=== PATIENT | female | born 1960 | race Caucasian/White ===

== ENCOUNTER 2016-10-31 18:43 | Observation (INO) | payer OTHER ==
[2016-10-31] MEDS ORDERED: SODIUM CHLORIDE 0.9% 1,000 ML IV STA (19:07)
--- NOTE | 2016-10-31 19:11 | ED ---
Psych HPI - General Chief Complaint: Psychiatric Symptoms Stated Complaint: mental health Time Seen by Provider: 10/31/16 18:44 Source: EMS, RN notes reviewed Mode of arrival: EMS - History of Present Illness Initial Comments: 55 yo female presents to the emergency Department chief complaint of shakiness. Patient states that she Started about 2 weeks ago. She saw her psychiatrist or and she was referred for an outpatient follow-up with neurology that is scheduled for the middle of November. Patient states he continues to have shaking in her upper extremities at bedtime she. Patient states he states he tried to wash her hair they shake all the time so she was concerned. Patient denies any fever chills with this. Patient states she has had a slight cough. Patient denies any nausea or vomiting. Patient states that she has been using all her medicines. Patient states she was concerned with the shaking and she thought that it is just Continuing she may become suicidal. That she should be evaluated. Patient states that she is not currently having any other symptoms at this time. Patient denies any recent fever, chills, shortness of breath, chest pain, back pain, abdominal pain, nausea vomiting, numbness or tingling, dysuria or hematuria, constipation or diarrhea, headaches or visual changes, or any other current symptoms. - Related Data Home Medications Medication Instructions Recorded Confirmed Levothyroxine Sodium [Synthroid] 50 mcg PO DAILY 03/10/16 10/31/16 Acetaminophen Tab [Tylenol Tab] 650 mg PO BID PRN 06/01/16 10/31/16 Loratadine 10 mg PO DAILY 10/31/16 10/31/16 Previous Rx's Medication Instructions Recorded FLUoxetine HCL [PROzac] 20 mg PO DAILY #30 cap 12/12/14 traZODone HCL [Desyrel] 100 mg PO HS #30 tab 12/12/14 Allergies Allergy/AdvReac Type Severity Reaction Status Date / Time Sulfa (Sulfonamide Allergy Unknown Rash/Hives Verified 10/31/16 19:36 Antibiotics) Review of Systems ROS Statement: Those systems with pertinent positive or pertinent negative responses have been documented in the HPI. ROS Other: All systems not noted in ROS Statement are negative. Past Medical History Past Medical History: GERD/Reflux, Hyperlipidemia, Hypertension, Thyroid Disorder Additional Past Medical History / Comment(s): Celiac disease History of Any Multi-Drug Resistant Organisms: None Reported Past Surgical History: Section, Tubal Ligation Additional Past Surgical History / Comment(s): Bilateral cataract removal and lens implant Past Anesthesia/Blood Transfusion Reactions: No Reported Reaction Past Psychological History: Anxiety, Depression, Panic Disorder, PTSD, Schizophrenia Smoking Status: Never smoker Past Alcohol Use History: None Reported Additional Past Alcohol Use History / Comment(s): Patient states she is a lifelong nonsmoker. She denies any medical marijuana, marijuana or street drug use. She denies any alcohol use or abuse. She is currently . She has 2 adult children. One son is and on his own and the second son is in his 20s and living with his grandparents. One son has hearing and vision difficulty. Past Drug Use History: None Reported - Past Family History Father Family Medical History: CVA/TIA, Diabetes Mellitus Additional Family Medical History / Comment(s): Father is alive and his 70s Mother Family Medical History: No Reported History Brother(s) Additional Family Medical History / Comment(s): She has 2 brothers. One at age 43 from [facility] and 1 is alive with no major medical problems. Patient has no sisters. General Exam - General Exam Comments Initial Comments: General: The patient is awake and alert, in no distress, and does not appear acutely ill. Eye: Pupils are equal, round and reactive to light, extra-ocular movements are intact; there is normal conjunctiva bilaterally. No signs of icterus. Ears, nose, mouth and throat: There are moist mucous membranes and no oral lesions. Neck: The neck is supple, there is no tenderness. Cardiovascular: There is a regular rate and rhythm. No murmur, rub or gallop is appreciated. Respiratory: Lungs are clear to auscultation, respirations are non-labored, breath sounds are equal. No wheezes, stridor, rales, or rhonchi. Gastrointestinal: Soft, non-distended, non-tender abdomen without masses or organomegaly noted. There is no rebound or guarding present. No CVA tenderness. Bowel sounds are unremarkable. Back: There is no tenderness to palpation in the midline. There is no obvious deformity. No rashes noted. Musculoskeletal: Normal ROM, no tenderness, There is no pedal edema. There is no calf tenderness or swelling. Sensation intact. Pulses equal bilaterally 2+. Neurological: CN II-XII intact, There are no obvious motor or sensory deficits. Coordination appears grossly intact. Speech is normal. Patient does appear to have shaking to the bilateral upper extremities. She Does not go away when patient is asked to perform tasks. Skin: Skin is warm and dry and no rashes or lesions are noted. Psychiatric: Cooperative, appropriate mood & affect, normal judgment. Course Vital Signs 10/31/16 10/31/16 18:44 21:17 Temperature 98.2 F 98.6 F Pulse Rate 94 91 Respiratory 18 16 Rate Blood Pressure 164/99 146/73 O2 Sat by Pulse 96 95 Oximetry Medical Decision Making - Medical Decision Making 55-year-old female presents to the emergency Department chief complaint of upper extremity shaking. Patient CT and laboratory is reviewed and negative. Psychiatric see the patient as well and the digit contact the family. There is concerned due to this increasing tremor. Family states they've noticed this tremors becoming worse over the last 2 weeks intense when she can't even hold something. Psych does not believe this is to the making this is due to a neurological cause. At this time it is worsening to the point of the patient, family function at times with this. At this time we'll admit the patient to observation to have a doctor she'll see the patient for her new tremor there is a long history of Parkinson dementia in the patient's family. The patient and in agreement with the plan. - Lab Data Result diagrams: 10/31/16 19:31 10/31/16 19:31 Lab Results 10/31/16 10/31/16 10/31/16 Range/Units 19:20 19:20 19:31 WBC 9.7 (3.8-10.6) k/uL RBC 4.75 (3.80-5.40) m/uL Hgb 14.0 (11.4-16.0) gm/dL Hct 43.6 (34.0-46.0) % MCV 91.9 (80.0-100.0) fL MCH 29.5 (25.0-35.0) pg MCHC 32.1 (31.0-37.0) g/dL RDW 12.6 (11.5-15.5) % Plt Count 352 (150-450) k/uL Neutrophils % 66 % Lymphocytes % 26 % Monocytes % 5 % Eosinophils % 2 % Basophils % 0 % Neutrophils # 6.4 (1.3-7.7) k/uL Lymphocytes # 2.5 (1.0-4.8) k/uL Monocytes # 0.5 (0-1.0) k/uL Eosinophils # 0.2 (0-0.7) k/uL Basophils # 0.0 (0-0.2) k/uL Sodium (137-145) mmol/L Potassium (3.5-5.1) mmol/L Chloride (98-107) mmol/L Carbon Dioxide (22-30) mmol/L Anion Gap mmol/L BUN (7-17) mg/dL Creatinine (0.52-1.04) mg/dL Est GFR (MDRD) Af Amer (>60 ml/min/1.73 sqM) Est GFR (MDRD) Non-Af (>60 ml/min/1.73 sqM) Glucose (74-99) mg/dL Calcium (8.4-10.2) mg/dL Total Bilirubin (0.2-1.3) mg/dL AST (14-36) U/L ALT (9-52) U/L Alkaline Phosphatase (38-126) U/L Total Protein (6.3-8.2) g/dL Albumin (3.5-5.0) g/dL TSH (0.465-4.680) mIU/L Urine Color Yellow Urine Appearance Turbid H (Clear) Urine pH 7.5 (5.0-8.0) Ur Specific Keenes 1.017 (1.001-1.035) Urine Protein Negative (Negative) Urine Glucose (UA) Negative (Negative) Urine Ketones Negative (Negative) Urine Blood Negative (Negative) Urine Nitrate Negative (Negative) Urine Bilirubin Negative (Negative) Urine Urobilinogen <2.0 (<2.0) mg/dL Ur Leukocyte Esterase Negative (Negative) Urine RBC 6 H (0-5) /hpf Ur Squamous Epith Cells 2 (0-4) /hpf Amorphous Sediment Rare H (None) /hpf Urine Mucus Rare H (None) /hpf Urine Opiates Screen Not Detected (NotDetected) Ur Oxycodone Screen Not Detected (NotDetected) Urine Methadone Screen Not Detected (NotDetected) Ur Propoxyphene Screen Not Detected (NotDetected) Ur Barbiturates Screen Not Detected (NotDetected) U Tricyclic Antidepress Not Detected (NotDetected) Ur Phencyclidine Scrn Not Detected (NotDetected) Ur Amphetamines Screen Not Detected (NotDetected) U Methamphetamines Scrn Not Detected (NotDetected) U Benzodiazepines Scrn Detected H (NotDetected) Urine Cocaine Screen Not Detected (NotDetected) U Marijuana (THC) Screen Not Detected (NotDetected) 10/31/16 Range/Units 19:31 WBC (3.8-10.6) k/uL RBC (3.80-5.40) m/uL Hgb (11.4-16.0) gm/dL Hct (34.0-46.0) % MCV (80.0-100.0) fL MCH (25.0-35.0) pg MCHC (31.0-37.0) g/dL RDW (11.5-15.5) % Plt Count (150-450) k/uL Neutrophils % % Lymphocytes % % Monocytes % % Eosinophils % % Basophils % % Neutrophils # (1.3-7.7) k/uL Lymphocytes # (1.0-4.8) k/uL Monocytes # (0-1.0) k/uL Eosinophils # (0-0.7) k/uL Basophils # (0-0.2) k/uL Sodium 142 (137-145) mmol/L Potassium 4.5 (3.5-5.1) mmol/L Chloride 99 (98-107) mmol/L Carbon Dioxide 30 (22-30) mmol/L Anion Gap 13 mmol/L BUN 20 H (7-17) mg/dL Creatinine 0.63 (0.52-1.04) mg/dL Est GFR (MDRD) Af Amer >60 (>60 ml/min/1.73 sqM) Est GFR (MDRD) Non-Af >60 (>60 ml/min/1.73 sqM) Glucose 96 (74-99) mg/dL Calcium 9.8 (8.4-10.2) mg/dL Total Bilirubin 0.6 (0.2-1.3) mg/dL AST 20 (14-36) U/L ALT 34 (9-52) U/L Alkaline Phosphatase 95 (38-126) U/L Total Protein 8.1 (6.3-8.2) g/dL Albumin 4.8 (3.5-5.0) g/dL TSH 3.360 (0.465-4.680) mIU/L Urine Color Urine Appearance (Clear) Urine pH (5.0-8.0) Ur Specific Keenes (1.001-1.035) Urine Protein (Negative) Urine Glucose (UA) (Negative) Urine Ketones (Negative) Urine Blood (Negative) Urine Nitrate (Negative) Urine Bilirubin (Negative) Urine Urobilinogen (<2.0) mg/dL Ur Leukocyte Esterase (Negative) Urine RBC (0-5) /hpf Ur Squamous Epith Cells (0-4) /hpf Amorphous Sediment (None) /hpf Urine Mucus (None) /hpf Urine Opiates Screen (NotDetected) Ur Oxycodone Screen (NotDetected) Urine Methadone Screen (NotDetected) Ur Propoxyphene Screen (NotDetected) Ur Barbiturates Screen (NotDetected) U Tricyclic Antidepress (NotDetected) Ur Phencyclidine Scrn (NotDetected) Ur Amphetamines Screen (NotDetected) U Methamphetamines Scrn (NotDetected) U Benzodiazepines Scrn (NotDetected) Urine Cocaine Screen (NotDetected) U Marijuana (THC) Screen (NotDetected) Disposition Clinical Impression: Tremor of both hands Disposition: ADMITTED IP TO THIS [facility] Referrals: Cindy Gardner MD [Primary Care Provider] - 1-2 days Time of Disposition: 21:55 Decision Date: 10/31/16 Decision Time: 22:08
[2016-10-31 19:39] LABS: Basophils % (A) 0 %; CH 30.1; CHCM 32.9; Eosinophils # (A) 0.2 k/uL (0-0.7); Eosinophils % (A) 2 %; HCT 43.6 % (34.0-46.0); Luc # (Auto) 0.15; Luc % (Auto) 2; Lymphocytes # (A) 2.5 k/uL (1.0-4.8); Lymphocytes % (A) 26 %; MCH 29.5 pg (25.0-35.0); MCHC 32.1 g/dL (31.0-37.0); MCV 91.9 fL (80.0-100.0); Mean Platelet Volume 6.8; Monocytes # (A) 0.5 k/uL (0-1.0); Monocytes % (A) 5 %; Neutrophils # (A) 6.4 k/uL (1.3-7.7); Neutrophils % (A) 66 %; RBC 4.75 m/uL (3.80-5.40); RDW 12.6 % (11.5-15.5); WBC 9.7 k/uL (3.8-10.6); WBC (Perox) 10.07
[2016-10-31 19:50] LABS: ALT 34 U/L (9-52); AST 20 U/L (14-36); Alkaline Phosphatase 95 U/L (38-126); Anion Gap 13 mmol/L; Blood Urea Nitrogen 20 mg/dL (7-17); Calcium 9.8 mg/dL (8.4-10.2); Carbon Dioxide 30 mmol/L (22-30); Chloride 99 mmol/L (98-107); Glucose 96 mg/dL (74-99); Non-African American GFR(MDRD) >60 (>60 ml/min/1.73 sqM); Potassium 4.5 mmol/L (3.5-5.1); Sodium 142 mmol/L (137-145); Total Bilirubin 0.6 mg/dL (0.2-1.3); Total Protein 8.1 g/dL (6.3-8.2)
--- NOTE | 2016-10-31 20:32 | CT ---
EXAMINATION TYPE: CT brain wo con DATE OF EXAM: 10/31/2016 8:19 PM COMPARISON: 08/20/2016 HISTORY: Confusion and frontal headache. CT DLP: 1590.40 mGycm Automated exposure control for dose reduction was used. FINDINGS: There is mild cerebral atrophy. There is no mass effect or midline shift. There is no sign of intracr anial hemorrhage. There is some hypodensity around the frontal horns of the lateral ventricles. IMPRESSION: Cerebral atrophy with probably some chronic small vessel ischemia. No acute intracranial abnormality. No change compared to old exam.
[2016-10-31 20:52] LABS: Amorphous Sediment,Urine Rare /hpf; Appearance,Urine Turbid (Clear); Bilirubin,Urine Negative (Negative); Glucose,Urine (UA) Negative (Negative); Ketones,Urine Negative (Negative); Leukocyte Esterase,Urine Negative (Negative); Mucus,Urine Rare /hpf; Nitrite,Urine Negative (Negative); PH, Urine 7.5 (5.0-8.0); Particle Count 10179; Protein,Urine Negative (Negative); RBC,Urine 6 /hpf (0-5); Specific Gravity,Urine 1.017 (1.001-1.035); Squamous Epithelial Cell,Urine 2 /hpf (0-4); UA Billing (MACRO vs. MICRO) MICRO; Urobilinogen,Urine <2.0 mg/dL (<2.0)
[2016-10-31] MEDS ORDERED: NALOXONE 0.4 MG/ML 1 ML VIAL IV PRN (22:08)
[2016-10-31] MEDS ORDERED: ACETAMINOPHEN TAB 325 MG TAB PO PRN (22:10)
[2016-10-31 23:20] VITALS: BMI 30.1
[2016-10-31 23:31] VITALS: RESP 16
[2016-11-01] MEDS: SODIUM CHLORIDE 0.9% 1,000 ML IV SCH ×2 (00:58→20:15)
[2016-11-01] MEDS: LORazepam 2 MG/ML SYRINGE IV PRN ×2 (00:58→22:27)
[2016-11-01] MEDS: LEVOTHYROXINE 50 MCG TAB PO SCH (05:26)
[2016-11-01] MEDS: FLUoxetine HCL 20 MG CAP PO SCH (07:07)
[2016-11-01] MEDS: LORATADINE 10 MG TAB PO SCH (07:08)
[2016-11-01 07:55] LABS: Basophils % (A) 0 %; CH 29.9; CHCM 32.2; Eosinophils # (A) 0.1 k/uL (0-0.7); Eosinophils % (A) 1 %; HCT 40.2 % (34.0-46.0); HDW 2.14; HGB 12.9 gm/dL (11.4-16.0); Luc # (Auto) 0.08; Luc % (Auto) 1; Lymphocytes # (A) 2.3 k/uL (1.0-4.8); Lymphocytes % (A) 32 %; MCH 29.9 pg (25.0-35.0); MCHC 32.1 g/dL (31.0-37.0); MCV 93.3 fL (80.0-100.0); Monocytes # (A) 0.3 k/uL (0-1.0); Monocytes % (A) 4 %; Neutrophils # (A) 4.4 k/uL (1.3-7.7); Neutrophils % (A) 61 %; RBC 4.31 m/uL (3.80-5.40); RDW 12.6 % (11.5-15.5); WBC 7.2 k/uL (3.8-10.6); WBC (Perox) 7.52
[2016-11-01 08:04] LABS: ALT 36 U/L (9-52); AST 19 U/L (14-36); Alkaline Phosphatase 86 U/L (38-126); Anion Gap 10 mmol/L; Blood Urea Nitrogen 12 mg/dL (7-17); Carbon Dioxide 28 mmol/L (22-30); Chloride 102 mmol/L (98-107); Glucose 105 mg/dL (74-99); Non-African American GFR(MDRD) >60 (>60 ml/min/1.73 sqM); Potassium 3.8 mmol/L (3.5-5.1); Sodium 140 mmol/L (137-145); Total Bilirubin 0.6 mg/dL (0.2-1.3)
--- NOTE | 2016-11-01 19:13 | HP ---
DATE OF ADMISSION: 10/31/2016 DATE OF SERVICE: 11/01/2016 CHIEF COMPLAINTS: Tremors and gait dysfunction. HISTORY OF PRESENT ILLNESS: This 55-year-old woman with a past medical history of multiple medical problems including GERD, hypertension, hyperlipidemia, hypothyroidism, celiac disease, history of tubal ligation, , anxiety, depression, panic disorder, PTSD, schizophrenia, being followed by Dr. Cindy Gardner in the outpatient setting was admitted with complaints of tremors. Patient had difficulty in walking. The patient also has shaking, which is uncontrolled. Patient does not have any fever, rigors, chills. Patient had no nausea, headache, loss of consciousness or seizures. Patient came to [facility] and admitted for evaluation and treatment. There is no hematochezia or melena. PAST MEDICAL HISTORY: History of gastroesophageal reflux disease, hypertension, hyperlipidemia, hypothyroidism, history of anxiety and depression, panic disorder, PTSD, schizophrenia. Medications prior to admission include the home medications include: 1. Desyrel 100 mg q.h.s. 2. Loratadine 10 mg p.o. daily. 3. Synthroid 50 mcg daily. 4. Prozac 20 mg p.o. b.i.d. 5. Tylenol 650 b.i.d. ALLERGIES: SULFA. FAMILY HISTORY: History of CVA, TIA, diabetes mellitus, Parkinson's in the brother. SOCIAL HISTORY: No history of smoking. No history of alcohol intake. REVIEW OF SYSTEMS: ENT: No diminished hearing or diminished vision. CARDIOVASCULAR: No angina. RESPIRATORY: No cough or hemoptysis. GI: No nausea. : No dysuria. NERVOUS SYSTEM: As mentioned earlier. ALLERGY/IMMUNOLOGY: No asthma or hayfever. MUSCULOSKELETAL: As mentioned earlier. HEMATOLOGY: No history of anemia. ENDOCRINE: No history of diabetes. Hypothyroidism. CONSTITUTIONAL: As mentioned earlier. DERMATOLOGY: Negative. RHEUMATOLOGY: Negative. PSYCHIATRY: As mentioned earlier. PHYSICAL EXAMINATION: Patient is alert and oriented x3. Pulse is 93, blood pressure 140/77, respirations 16, temperature 96.7, pulse ox 90% on room air. HEENT: Conjunctivae normal. NECK: No jugular venous distention. CARDIOVASCULAR: S1 and S2, muffled. RESPIRATORY: Breath sounds diminished at the bases. Bilateral scattered rhonchi and crackles. ABDOMEN: Soft, nontender. LEGS: No edema, no swelling. NERVOUS SYSTEM: Higher function as mentioned. Cranial nerves II through XII grossly intact. tone is increased. Diffuse tremors. Power is also diminished bilaterally. LYMPHATIC: No lymphadenopathy in the neck, axillae or groin. SKIN: No ulcer, rash or bleeding. LABS: CBC and CMP within normal limits. UA noted. Drug screen is positive for benzodiazepines. ASSESSMENT: 1. Diffuse tremors and weakness, possible acute Parkinsonian, acute exacerbation. 2. Gait dysfunction. 3. History of gastroesophageal reflux disease. 4. Hypertension. 5. Hyperlipidemia. 6. Hypothyroidism. 7. History of celiac disease. 8. History of tubal ligation. 9. Bilateral cataract removal. 10. Anxiety, depression, panic disorder, posttraumatic stress disorder, schizophrenia. 11. FULL CODE. RECOMMENDATIONS AND DISCUSSION: In this 55-year-old woman who presented with multiple complex medical issues. We will monitor the patient closely. Continue the current medications. I would recommend Neurology consultation. PT, OT evaluation. Otherwise, resume the home medications. DVT prophylaxis. See orders. Medication reconciliation done. I would also recommend psychiatry consultation. Further recommendations to follow. A copy of dictation forwarded to Dr. Cindy Gardner who is the primary physician.
[2016-11-01] MEDS: HEPARIN SODIUM,PORCINE 5,000 UNIT/ML 1 ML VIAL SQ SCH (20:24)
[2016-11-01] MEDS: traZODone HCL 100 MG TAB PO SCH (20:25)
[2016-11-02] MEDS: SODIUM CHLORIDE 0.9% 1,000 ML IV SCH ×2 (00:24→12:33)
[2016-11-02] MEDS: LEVOTHYROXINE 50 MCG TAB PO SCH (06:00)
[2016-11-02] MEDS: LORATADINE 10 MG TAB PO SCH (08:35)
[2016-11-02] MEDS: FLUoxetine HCL 20 MG CAP PO SCH (08:35)
[2016-11-02] MEDS: HEPARIN SODIUM,PORCINE 5,000 UNIT/ML 1 ML VIAL SQ SCH ×2 (08:36→21:38)
--- NOTE | 2016-11-02 09:49 | CONS ---
DATE OF CONSULTATION: 11/01/2016 CHIEF COMPLAINT: Tremors and gait instability. HISTORY OF PRESENT ILLNESS: Mrs. Carver is a pleasant 55-year-old female who is being evaluated today on 11/01/2016 by the neurology service per the request of Dr. Garcia for the above-mentioned complaints. The patient was brought into [facility] emergency room with complaints of generalized tremors. She states that the symptoms started approximately 2 weeks ago and they have been getting worse. The patient was unable to control her extremities due to tremors and this is the main reason she was brought into the emergency room. She also noticed that she was not walking steadily. She denies any head injuries and denies any lateralizing weakness or numbness. She does have a history of depression and hypothyroidism. The patient is concerned because she has a family history of Parkinson's disease. Her brother was diagnosed with Parkinson's disease when he was in his 40s. A CT scan of the brain was done, which showed generalized atrophy and small vessel ischemic changes. Her CBC, comprehensive metabolic profile, and urinalysis were normal. Her urine drug screen was positive for benzodiazepine. At the time of my evaluation, the patient is resting in her bed and appears to be in no acute distress. She is still having tremors, but the intensity has significantly improved. PAST MEDICAL HISTORY: Hypertension, hypothyroidism, gastroesophageal reflux disease, dyslipidemia, celiac disease, history of tubal ligation and . She also has history of cataract surgeries. The patient does have multiple psychiatric history including depression, anxiety disorder, panic disorder, posttraumatic stress disorder, and schizophrenia. SOCIAL HISTORY: She denies any tobacco, alcohol or IV drug use. FAMILY HISTORY: Positive for Parkinson's disease, strokes, diabetes. HOME MEDICATIONS: Reviewed in the chart ALLERGIES: SULFA DRUGS. REVIEW OF SYSTEMS: Per history of present illness and otherwise negative. PHYSICAL EXAM: Vital signs show a temperature of 96.7, pulse 93, respirations 16, blood pressure 146/77. GENERAL APPEARANCE: The patient is a well-developed, well-nourished female who appears to be in no acute distress. HEENT: Normocephalic, atraumatic, no facial asymmetry is seen. Neck is supple with no masses felt. CARDIOVASCULAR: Regular rate and rhythm. ABDOMEN: Nontender, nondistended. EXTREMITIES: No edema or clubbing. NEUROLOGICAL EXAM: The patient is alert, aware, and oriented x3. Speech and language are normal. Resting tremors are seen in all 4 extremities but more significant in the right upper extremity. Postural tremors are also seen. Cogwheel rigidity is present in bilateral upper extremities. No lateralizing weakness is seen. Sensory exam was normal to light touch in all 4 extremities. No facial asymmetry is noticed on cranial nerve testing. IMPRESSION: 1. Uncontrolled tremors. 2. Gait instability. 3. Parkinsonism. RECOMMENDATIONS: The patient's physical examination is consistent with parkinsonism, but she also has some postural tremors as well. Given the findings, and given the family history of parkinsonism, I will start her on Requip 0.5 mg at bedtime. This dose will slowly be titrated up to 3 times daily in the outpatient setting. The patient will also be scheduled for a SPECT scan to check for evidence of Parkinson's disease and this will also be scheduled in the outpatient setting. She will follow up in the clinic within one week of discharge. Continue physical therapy for now. I will continue to follow with you. Further recommendations to follow. Thank you for allowing me to participate in the care of your patient. If you have any questions, please feel free to contact me. CHATA
[2016-11-02] MEDS: FOLIC ACID 1 MG TAB PO SCH (11:48)
[2016-11-02] MEDS: THIAMINE 100 MG TAB PO SCH (11:48)
[2016-11-02] MEDS: MULTIVITAMINS, THERA 1 EACH TAB PO SCH (11:48)
--- NOTE | 2016-11-02 19:21 | P.PN ---
Subjective This is a 55-year-old female that is admitted to the hospital with complaints of tremors and gait dysfunction. Patient probably has been having similar complaints over the last few weeks. Patient has had a fall or 6 weeks ago. Patient does have a history of schizophrenia. Patient was initially evaluated and initial differential diagnosis was early parkinsonism. No change in medications were recently reported. Patient apparently lives by herself has some help with [facility] in regards to patient being evaluated regularly. Currently states that her tremors are slightly better after being started on ropinirole. Denies having any chest pain, nausea, dizziness, vomiting or diarrhea. Objective - Vital Signs Vital signs: Vital Signs Temp 98.4 F 11/02/16 14:48 Pulse 74 11/02/16 16:00 Resp 16 11/02/16 16:00 BP 128/71 11/02/16 14:48 Pulse Ox 94 L 11/02/16 14:48 Intake & Output 11/02/16 11/02/16 11/03/16 06:59 18:59 06:59 Intake Total 440 1280 Balance 440 1280 Intake: IV 240 800 Sodium Chloride 0.9% 1, 240 800 000 ml @ 80 mls/hr IV . [id number] LEONARDO Rx#:[id number] Oral 200 480 Other: Voiding Method Toilet Toilet # Voids 1 3 - Exam Physical exam Gen. appearance oriented 3 in no distress Neck is supple no JVD Lungs good air entry clear to auscultation no rhonchi or wheezing Heart S1-S2 heard regular rate and rhythm no murmurs appreciated Abdomen is soft nontender no organomegaly bowel sounds are intact Neurologically cranial nerves II-12 grossly intact a resting tremor is noted diffusely is able to wall 4 extremities. Skin no abnormalities appreciated - Labs CBC & Chem 7: 11/01/16 06:59 11/01/16 06:59 Assessment and Plan Plan: 55-year-old with history of schizophrenia is admitted to the hospital with diffuse tremors #1 resting tremor rule out parkinsonism #2 history of schizophrenia #3 hypothymism #4 anxiety #5 PTSD #6 hypertension #7 dyslipidemia #8 GERD Plan Continue ropinirole it can likely be increased per neurology recommendations. Patient will be evaluated with home care in regards equipment likely be discharged with home care in addition to some of the care provided by [facility] as well. This more chronic condition is on this patient is stable to be discharged home which was discussed with the patient and with PT and the case management patient will be discharged. Patient apparently even with the tremors is able to understand that she needs some support which will be provided to her on discharge.
[2016-11-02] MEDS: traZODone HCL 100 MG TAB PO SCH (21:38)
[2016-11-03] MEDS: SODIUM CHLORIDE 0.9% 1,000 ML IV SCH ×2 (01:17→12:18)
[2016-11-03] MEDS: LEVOTHYROXINE 50 MCG TAB PO SCH (06:15)
[2016-11-03 08:19] VITALS: BP 143/75; TEMP 97.9
[2016-11-03] MEDS: LORATADINE 10 MG TAB PO SCH (09:02)
[2016-11-03] MEDS: FLUoxetine HCL 20 MG CAP PO SCH (09:03)
[2016-11-03] MEDS: HEPARIN SODIUM,PORCINE 5,000 UNIT/ML 1 ML VIAL SQ SCH (09:03)
[2016-11-03 10:29] VITALS: PULSE 79
[2016-11-03] MEDS: THIAMINE 100 MG TAB PO SCH (12:16)
[2016-11-03] MEDS: MULTIVITAMINS, THERA 1 EACH TAB PO SCH (12:16)
[2016-11-03] MEDS: FOLIC ACID 1 MG TAB PO SCH (12:16)
--- NOTE | 2016-11-03 16:59 | PN ---
DATE OF SERVICE: 11/02/2016 SUBJECTIVE: Mrs. Carver is a pleasant 55-year-old female who is being evaluated today on 11/02/2016 by the neurology service for parkinsonism. As you recall, she had presented to [facility] with significant tremors. When she was evaluated, she was having both a resting and postural tremor, but she did have some rigidity. I did start her yesterday on Requip 0.5 mg q.h.s. and she did tolerate this dose well. She reports mild improvements in her symptoms that she has noticed since receiving Requip. She denies any new neurological complaints today. Physical therapy has been following the patient. OBJECTIVE: Vital signs show a temperature of 98.4, pulse 85, respirations 16, blood pressure 128/71. GENERAL APPEARANCE: The patient is a well-developed female who appears to be in no acute distress. HEENT: Normocephalic, atraumatic. Neck is supple. CARDIOVASCULAR: Regular rate and rhythm. EXTREMITIES: No edema. NEUROLOGICAL EXAM: The patient is alert, aware, and oriented x3. Speech and language are normal. Cogwheel rigidity is still present in bilateral upper extremities. Resting tremors are seen in all 4 extremities but more significant in the right upper extremity. Postural tremors are seen in bilateral upper extremities. No lateralizing weakness is seen. No facial asymmetry is noticed. IMPRESSION: 1. Parkinsonism. 2. Uncontrolled tremors. 3. Gait instability. RECOMMENDATIONS: The patient did respond slightly to Requip. I had a lengthy discussion with her regarding to titration dose. I will increase her Requip to 0.5 mg b.i.d. When we do see her in the office, I will increase this to 3 times daily. Again, the patient will need further neurological work-up, which will be scheduled in the outpatient clinic, which will include a SPECT scan. Continue the rest of your current work-up and management. I will continue to follow with you. Further recommendations to follow.
--- NOTE | 2016-11-03 20:47 | P.DS ---
Providers Date of admission: 10/31/16 22:08 Attending physician: Elza Garcia Primary care physician: [facility] Course: This is a 55-year-old female that is admitted to the hospital with complaints of tremors and gait dysfunction. Patient probably has been having similar complaints over the last few weeks. Patient has had a fall or 6 weeks ago. Patient does have a history of schizophrenia. Patient was initially evaluated and initial differential diagnosis was early parkinsonism. No change in medications were recently reported. Patient apparently lives by herself has some help with [facility] in regards to patient being evaluated regularly. Currently states that her tremors are slightly better after being started on ropinirole. Denies having any chest pain, nausea, dizziness, vomiting or diarrhea. Day of discharge Pt was ambulating well with a walker. Significant improvement. - Exam Physical exam Gen. appearance oriented 3 in no distress Neck is supple no JVD Lungs good air entry clear to auscultation no rhonchi or wheezing Heart S1-S2 heard regular rate and rhythm no murmurs appreciated Abdomen is soft nontender no organomegaly bowel sounds are intact Neurologically cranial nerves II-12 grossly intact a resting tremor is noted diffusely is able to wall 4 extremities. Skin no abnormalities appreciated Assessment and Plan Plan: 55-year-old with history of schizophrenia is admitted to the hospital with diffuse tremors #1 resting tremor rule out parkinsonism, question of drug induced .as pt made significant improved. Follow up with Dr Gresham #2 history of schizophrenia #3 hypothymism #4 anxiety #5 PTSD #6 hypertension #7 dyslipidemia #8 GERD stable to be discharged. Plan - Discharge Summary New Discharge Prescriptions: Folic Acid 1 mg PO DAILY@1200 #10 tab Multivitamins, Thera [Multivitamin] 1 each PO DAILY@1200 #30 tab rOPINIRole HCL [Requip] 0.5 mg PO BID #30 tab Discharge Medication List FLUoxetine HCL [PROzac] 20 mg PO DAILY #30 cap 12/12/14 [Rx] traZODone HCL [Desyrel] 100 mg PO HS #30 tab 12/12/14 [Rx] Levothyroxine Sodium [Synthroid] 50 mcg PO DAILY 03/10/16 [History] Acetaminophen Tab [Tylenol] 650 mg PO BID PRN 06/01/16 [History] Loratadine 10 mg PO DAILY 10/31/16 [History] Folic Acid 1 mg PO DAILY@1200 #10 tab 11/03/16 [Rx] Multivitamins, Thera [Multivitamin] 1 each PO DAILY@1200 #30 tab 11/03/16 [Rx] rOPINIRole HCL [Requip] 0.5 mg PO BID #30 tab 11/03/16 [Rx] Follow up Appointment(s)/Referral(s): [facility], [NON-STAFF] - Cindy Gardner MD [Primary Care Provider] - 11/07/16 9:45 am Rod Barlow MD [STAFF PHYSICIAN] - 1 Week (Office states they will contact patient with follow up appointment day and time.) Discharge Disposition: HOME WITH HOME HEALTH SERVICES
== END 2016-11-03 16:16 | disposition home health service (06) ==
LOC: EC 18:43 → 3SUR 22:08
PROVIDERS: ADMIT Hospitalist; ATTEND Hospitalist
DX: R25.1 Tremor, unspecified (principal); F20.9 Schizophrenia, unspecified; E03.9 Hypothyroidism, unspecified; F41.9 Anxiety disorder, unspecified; F43.10 Post-traumatic stress disorder, unspecified; I10 Essential (primary) hypertension; E78.5 Hyperlipidemia, unspecified; K21.9 Gastro-esophageal reflux disease without esophagitis; K90.0 Celiac disease; F32.9 Major depressive disorder, single episode, unspecified; F41.0 Panic disorder [episodic paroxysmal anxiety]; Z79.899 Other long term (current) drug therapy; Z88.2 Allergy status to sulfonamides; Z83.3 Family history of diabetes mellitus; Z82.3 Family history of stroke; Z82.0 Family history of epilepsy and other diseases of the nervous system
CPT/HCPCS: 82075; 36415; 97116; 97161; 80053 ×2; 84443; 85025 ×2; 81001; 80306; 87086; 70450; 99285; 96361; G0378 ×4; J2060; J1644 ×3; 96372; 96374; 96376

== ENCOUNTER 2016-11-05 16:01 | Inpatient (IN) | payer MEDICAID, OTHER ==
--- NOTE | 2016-11-05 16:17 | ED ---
General Adult HPI <Radames Quach - Last Filed: 11/05/16 19:12> - General Source: patient, EMS, RN notes reviewed Mode of arrival: EMS Limitations: no limitations <Jamie Morocho - Last Filed: 11/05/16 19:28> - General Stated complaint: constipation Time Seen by Provider: 11/05/16 16:04 - History of Present Illness Initial comments: 55-year-old female presents emergency Department chief complaint of feeling suicidal. Patient states that she is suicidal because she feels that she cannot his urine for herself anymore. She states that she has a long history of psychiatric problems and she has the ACT team with [facility]. Patient states that she recently was admitted to the hospital for tremors. Patient was started on Requip. Patient states that she has not had a bowel movement since yesterday so she thought she was constipated though she took some glycol today. Patient denies any nausea vomiting. Denies any fevers or chills. Patient offers no complaints. Patient denies homicidal thoughts. (Jamie Morocho) - Related Data Home Medications Medication Instructions Recorded Confirmed Levothyroxine Sodium [Synthroid] 50 mcg PO DAILY 03/10/16 11/05/16 Acetaminophen Tab [Tylenol] 650 mg PO BID PRN 06/01/16 11/05/16 Loratadine 10 mg PO DAILY 10/31/16 11/05/16 Multivitamins, Thera [Multivitamin] 1 tab PO DAILY@1200 11/05/16 11/05/16 Previous Rx's Medication Instructions Recorded FLUoxetine HCL [PROzac] 20 mg PO DAILY #30 cap 12/12/14 traZODone HCL [Desyrel] 100 mg PO HS #30 tab 12/12/14 Folic Acid 1 mg PO DAILY@1200 #10 tab 11/03/16 rOPINIRole HCL [Requip] 0.5 mg PO BID #30 tab 11/03/16 Allergies Allergy/AdvReac Type Severity Reaction Status Date / Time Sulfa (Sulfonamide Allergy Unknown Rash/Hives Verified 11/05/16 16:17 Antibiotics) Review of Systems ROS Other: All systems not noted in ROS Statement are negative. <Radames Quach - Last Filed: 11/05/16 19:12> ROS Other: All systems not noted in ROS Statement are negative. <Dedoe,Jamie M - Last Filed: 11/05/16 19:28> ROS Statement: Those systems with pertinent positive or pertinent negative responses have been documented in the HPI. Past Medical History Past Medical History: GERD/Reflux, Hyperlipidemia, Hypertension, Thyroid Disorder Additional Past Medical History / Comment(s): Celiac disease History of Any Multi-Drug Resistant Organisms: None Reported Past Surgical History: Section, Tubal Ligation Additional Past Surgical History / Comment(s): Bilateral cataract removal and lens implant Past Anesthesia/Blood Transfusion Reactions: No Reported Reaction Past Psychological History: Anxiety, Depression, Panic Disorder, Schizophrenia Smoking Status: Never smoker Past Alcohol Use History: None Reported Additional Past Alcohol Use History / Comment(s): Patient states she is a lifelong nonsmoker. She denies any medical marijuana, marijuana or street drug use. She denies any alcohol use or abuse. She is currently . She has 2 adult children. One son is and on his own and the second son is in his 20s and living with his grandparents. One son has hearing and vision difficulty. Past Drug Use History: None Reported - Past Family History Father Family Medical History: CVA/TIA, Diabetes Mellitus Additional Family Medical History / Comment(s): Father is alive and his 70s Mother Family Medical History: No Reported History Brother(s) Additional Family Medical History / Comment(s): She has 2 brothers. One at age 43 from lockjaw and 1 is alive with no major medical problems. Patient has no sisters. <Jamie Morocho - Last Filed: 11/05/16 19:28> General Exam Limitations: no limitations General appearance: alert, in no apparent distress Head exam: Present: atraumatic, normocephalic, normal inspection Neck exam: Present: normal inspection, full ROM. Absent: tenderness, meningismus, lymphadenopathy Respiratory exam: Present: normal lung sounds bilaterally. Absent: respiratory distress, wheezes, rales, rhonchi, stridor Cardiovascular Exam: Present: regular rate, normal rhythm, normal heart sounds. Absent: systolic murmur, diastolic murmur, rubs, gallop, clicks GI/Abdominal exam: Present: soft, normal bowel sounds. Absent: distended, tenderness, guarding, rebound, rigid Extremities exam: Present: other (Tremors noted of the upper extremities) Psychiatric exam: Present: flat affect Skin exam: Present: warm, dry, intact, normal color. Absent: rash <Jamie Morocho - Last Filed: 11/05/16 19:28> Medical Decision Making <Radames Quach - Last Filed: 11/05/16 19:12> <Jamie Morocho - Last Filed: 11/05/16 19:28> - Medical Decision Making Medical decision making. I evaluated the patient for possible admission and certification for admission. Reviewed the petition for the psychiatric nurse. The patient states that she is depressed and has an the past overdosed on aspirin but denies doing that lately. States she is unhappy because she can't take care of herself and needs help. I have completed a certificate of admission for further evaluation. Dr. Quach (Radames Quach) Patient was evaluated by EPS in which they recommend patient be transferred to a geriatric psych (Jamie Morocho) - Lab Data Lab Results 11/05/16 Range/Units 17:55 Urine Opiates Screen Not Detected (NotDetected) Ur Oxycodone Screen Not Detected (NotDetected) Urine Methadone Screen Not Detected (NotDetected) Ur Propoxyphene Screen Not Detected (NotDetected) Ur Barbiturates Screen Not Detected (NotDetected) U Tricyclic Antidepress Not Detected (NotDetected) Ur Phencyclidine Scrn Not Detected (NotDetected) Ur Amphetamines Screen Not Detected (NotDetected) U Methamphetamines Scrn Not Detected (NotDetected) U Benzodiazepines Scrn Not Detected (NotDetected) Urine Cocaine Screen Not Detected (NotDetected) U Marijuana (THC) Screen Not Detected (NotDetected) Disposition <Radames Quach - Last Filed: 11/05/16 19:12> Time of Disposition: 19:03 <Jamie Morocho - Last Filed: 11/05/16 19:28> Clinical Impression: Depression, Suicidal ideation Disposition: TRANSFER TO PSYCH HOSP/UNIT Condition: Stable Referrals: Cindy Gardner MD [Primary Care Provider] - 1-2 days
--- NOTE | 2016-11-05 16:49 | XR ---
EXAMINATION TYPE: XR KUB DATE OF EXAM: 11/05/2016 4:24 PM COMPARISON: 03/30/2014 HISTORY: Constipation TECHNIQUE: 2 views FINDINGS: There is no sign of intestinal obstruction or pneumoperitoneum. Fecal pattern is normal. There are ph leboliths in the pelvis. There are no pathologic calcifications over the kidneys. Lung bases are bev r. IMPRESSION: Nonacute abdomen. No evidence of constipation. No change.
[2016-11-05 19:33] LABS: Basophils % (A) 0 %; CH 30.5; CHCM 33.9; Eosinophils # (A) 0.2 k/uL (0-0.7); Eosinophils % (A) 1 %; HCT 42.4 % (34.0-46.0); HDW 2.21; HGB 13.9 gm/dL (11.4-16.0); Luc # (Auto) 0.09; Luc % (Auto) 1; Lymphocytes # (A) 2.1 k/uL (1.0-4.8); Lymphocytes % (A) 19 %; MCH 29.6 pg (25.0-35.0); MCHC 32.8 g/dL (31.0-37.0); MCV 90.3 fL (80.0-100.0); Mean Platelet Volume 7.6; Monocytes # (A) 0.4 k/uL (0-1.0); Monocytes % (A) 4 %; Neutrophils # (A) 8.1 k/uL (1.3-7.7); Neutrophils % (A) 75 %; RBC 4.69 m/uL (3.80-5.40); RDW 12.8 % (11.5-15.5); WBC 10.9 k/uL (3.8-10.6); WBC (Perox) 10.68
[2016-11-05 19:46] LABS: ALT 41 U/L (9-52); AST 25 U/L (14-36); Acetaminophen <10.0 ug/mL; Alkaline Phosphatase 98 U/L (38-126); Anion Gap 17 mmol/L; Blood Urea Nitrogen 13 mg/dL (7-17); Calcium 10.3 mg/dL (8.4-10.2); Carbon Dioxide 25 mmol/L (22-30); Chloride 99 mmol/L (98-107); Glucose 98 mg/dL (74-99); Non-African American GFR(MDRD) >60 (>60 ml/min/1.73 sqM); Potassium 4.5 mmol/L (3.5-5.1); Salicylate <1.0 mg/dL; Sodium 141 mmol/L (137-145); Total Bilirubin 0.9 mg/dL (0.2-1.3); Total Protein 8.1 g/dL (6.3-8.2)
[2016-11-05] MEDS ORDERED: MAG HYDROX/AL HYDROX/SIMETH 30 ML CUP PO PRN (20:37)
[2016-11-05] MEDS ORDERED: MAGNESIUM HYDROXIDE 2,400 MG/10 ML CUP PO PRN (20:37)
[2016-11-05] MEDS ORDERED: ACETAMINOPHEN TAB 325 MG TAB PO PRN (20:37)
[2016-11-05] MEDS ORDERED: LORazepam 0.5 MG TAB PO PRN (20:41)
[2016-11-05] MEDS: traZODone HCL 100 MG TAB PO SCH (22:40)
[2016-11-06] MEDS: LEVOTHYROXINE 50 MCG TAB PO SCH (06:05)
[2016-11-06] MEDS: FLUoxetine HCL 20 MG CAP PO SCH (09:57)
[2016-11-06] MEDS: LORATADINE 10 MG TAB PO SCH (09:57)
[2016-11-06] MEDS: POLYETHYLENE GLYCOL 3350 17 GM POWD.PACK PO SCH (09:58)
[2016-11-06] MEDS: MULTIVITAMINS, THERA 1 EACH TAB PO SCH (12:10)
[2016-11-06] MEDS: FOLIC ACID 1 MG TAB PO SCH (12:10)
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
[2016-11-06] MEDS: CIPROFLOXACIN 0.3% OPHTH SOLN 2.5 ML BTL BOTH EYES SCH ×2 (18:26→20:42)
[2016-11-06] MEDS: PROPRANOLOL 10 MG TAB PO SCH ×2 (18:26→20:42)
[2016-11-06] MEDS: traZODone HCL 100 MG TAB PO SCH (20:42)
[2016-11-07] MEDS: CIPROFLOXACIN 0.3% OPHTH SOLN 2.5 ML BTL BOTH EYES SCH ×7 (01:04→23:56)
[2016-11-07] MEDS: LEVOTHYROXINE 50 MCG TAB PO SCH (05:46)
[2016-11-07] MEDS: LORATADINE 10 MG TAB PO SCH (09:48)
[2016-11-07] MEDS: PROPRANOLOL 10 MG TAB PO SCH ×3 (09:48→20:51)
[2016-11-07] MEDS: POLYETHYLENE GLYCOL 3350 17 GM POWD.PACK PO SCH (09:48)
[2016-11-07] MEDS: FLUoxetine HCL 20 MG CAP PO SCH (09:49)
--- NOTE | 2016-11-07 11:04 | P.PN ---
Progress Note - Text Interval history: The patient is found in the hallway seated in a chair she follows me to an interview room. She was admitted over the weekend by Dr. Mireles. We were able to review some of her [facility] mental health outpatient records. It appears that she is diagnosed with a schizoaffective disorder post traumatic stress disorder. It appears that she is no longer on an antipsychotic medication due to EPS concerns. She states that she has been referred to a neurologist for evaluation of Parkinson's. She presents to the hospital with suicidal thoughts and fears that she can't care for herself any longer. It seems she does live alone and she has been struggling to meet her activities of daily living. She has previously prescribed Prozac 20 mg daily trazodone 100 mg at bedtime. She is also on levothyroxine for hypothyroidism. The patient states that she is experiencing auditory hallucinations but they are "good voices" telling her to be calm and that she is doing good. She states her sleep is significantly impaired and she is getting 2-3 hours a night subsequently her energy is low during the day. Mental status exam: The patient is a short statured overweight female she is ambulating with a wheeled walker. As she seated she has little facial expression she is noted to have a tremor of her upper extremities and she holds them in a rigid posture. There does appear to be cogwheeling with passive range of motion. She endorses a depressed mood with some hopeless thinking. She is endorsing no paranoid or persecutory thoughts. She is mildly limited as a historian. She reports no thoughts of harming others. There is no verbal or physical aggressive behavior. She is oriented to person month year and place. She is mildly perseverative in discussing her concerns about not being able to live alone. Insight and judgment limited. She has little spontaneous speech but does provide brief answers to questions asked. Plan: The patient has been admitted to the mental health unit voluntarily. I will place a call with her outpatient psychiatrist Dr. Andrade. During the hospitalization we will have to assess her ability to continue residing alone. We may decide to initiate Seroquel as an antipsychotic which may help with her sleep. She is reportedly scheduled to follow-up with a neurologist on an outpatient basis. We will monitor her for safety encourage her participation in the milieu. Vital signs and labs reviewed.
[2016-11-07] MEDS: FOLIC ACID 1 MG TAB PO SCH (12:24)
[2016-11-07] MEDS: MULTIVITAMINS, THERA 1 EACH TAB PO SCH (12:24)
--- NOTE | 2016-11-07 13:33 | CONS ---
DATE OF CONSULTATION: REASON FOR CONSULTATION: Management of chronic medical conditions in a psychiatric patient. CHIEF COMPLAINT: Suicidal ideation. HISTORY OF PRESENT ILLNESS: Ms. Carver is a 55 -year-old female with a past medical history of GERD, hypertension, hyperlipidemia, thyroid disorder, admitted to the hospital for suicidal ideation. The patient was recently admitted to the hospital from 10/31 to 11/05 patient was discharged on the 03 of November this month. She was admitted for tremors and gait dysfunction and she was evaluated for symptoms of early Parkinson disease and she was discharged home to be followed up with neurology. The patient was discharged home but states after that she was not able to take care of herself. It was difficult for her to perform her daily activities and so she is feeling very depressed about her condition and so came in to the hospital. She states that she is upset because she is an active person and now she is not able to even care for herself. It is her tremors that bother her most and also her unsteady gait. REVIEW OF SYSTEMS: CONSTITUTIONAL: Denies having any fevers, chills, or rigors. RESPIRATORY: No cough. No difficulty breathing. Cardiac: No chest pain or palpitations. GASTROINTESTINAL: No abdominal pain, nausea or vomiting. : No dysuria, hematuria SECONDARY SPECIAL EDUCATION TEACHER: Patient has resting tremors and also has gait dysfunction, but no seizure-like activity noticed. All 13 point review of systems are done and negative except for ones mentioned in the HPI. Past medical history significant for GERD, hyperlipidemia, hypertension, thyroid disorder, celiac disease. Patient's home medications: Home medications are: 1. Tylenol 650 p.o. q.4 p.r.n. for pain and discomfort. 2. Maalox. 3. Ciprofloxacin eye drops. 4. Fluoxetine 20 mg p.o. daily. 5. Trazodone 100 mg p.o. q.h.s. 6. Levothyroxine 50 mcg p.o. daily. 7. Tylenol 650 mg p.o. b.i.d. 8. Loratadine 10 mg p.o. daily. 9. Folic acid 1 mg p.o. daily. 10. Requip 0.5 mg p.o. b.i.d. 11. MiraLax 17 grams powder p.o. daily. 12. Multivitamin 1 tablet p.o. daily. ALLERGIES: SULFUR DRUGS. PAST SURGICAL HISTORY: , tubal ligation. Psychiatric disorders anxiety, depression, panic disorder smoke. SOCIAL HISTORY: No history of smoking or any other drug abuse. She is . FAMILY HISTORY: Positive for diabetes mellitus, stroke. On examination, the patient's vitals: Temperature 97.7, heart rate 95, respiratory rate 16, blood pressure 131/69, saturating at 95% on room air. HEENT: Patient appears to be older than stated age, sitting in a chair, appears to be in no acute distress, but she has tremors. HEAD: Atraumatic, normocephalic. EYES: Pupils, round, and reactive to light. No pallor. No icterus. NECK: No JVD. No thyromegaly. CARDIOVASCULAR: S1, S2 muffled. RESPIRATORY: Bilateral breath sounds are positive. No crackles. ABDOMEN: Soft, nontender. Bowel sounds positive. EXTREMITIES: No edema. No cyanosis, no clubbing. SECONDARY SPECIAL EDUCATION TEACHER: She is alert, awake, slow to respond. Gait very unsteady gait and tandem. PSYCHIATRIC: The patient states that she is depressed as she is not able to take care of herself. MUSCULOSKELETAL: No joint swellings or deformities. The patient's labs: White count of 10.9, hemoglobin 13.9, platelets of 334, sodium 141, potassium 4.7, chloride 99, bicarb 95, BUN 13, creatinine 0.63. Urine is negative for any medication. ASSESSMENT AND PLAN: 1. Depression with suicidal thoughts. 2. Resting tremors with gait dysfunction differential being early Parkinson's symptoms. 3. History of schizophrenia. 4. Hypothyroidism. 5. Anxiety. 6. ( ). 7. Hypertension. 8. Dyslipidemia. 9. Gastroesophageal reflux disease. PLAN: The plan is to start the patient on propranolol for tremors as she might be having Parkinson disease so would advise neurology consult. Patient had redness in her eye with a white discharge the ciprofloxacin eye drops prescribed. Continue with the rest of her medication regimen. Further recommendations to follow depending on the progress of the patient. Thank you for the consult.
[2016-11-07] MEDS: traZODone HCL 100 MG TAB PO SCH (20:51)
[2016-11-08] MEDS: CIPROFLOXACIN 0.3% OPHTH SOLN 2.5 ML BTL BOTH EYES SCH ×5 (03:49→20:41)
[2016-11-08] MEDS: LEVOTHYROXINE 50 MCG TAB PO SCH (05:32)
[2016-11-08] MEDS: POLYETHYLENE GLYCOL 3350 17 GM POWD.PACK PO SCH (08:39)
[2016-11-08] MEDS: PROPRANOLOL 10 MG TAB PO SCH ×3 (08:39→22:16)
[2016-11-08] MEDS: FLUoxetine HCL 20 MG CAP PO SCH (08:39)
[2016-11-08] MEDS: LORATADINE 10 MG TAB PO SCH (08:39)
--- NOTE | 2016-11-08 09:45 | P.PN ---
Progress Note - Text Interval history: The patient is found in the [facility] she follows me to an interview room. She states that she would like to go to an [facility] home as she does not feel she can care for herself in her apartment. She states that she does continue to hear a good voice but now "bad voices". She feels safe here in the hospital. She was seen by the stock preparation operator a neurology consult was ordered to rule out Parkinson's disease, and she was started on ciprofloxacin for presumed conjunctivitis. We discussed titrating the Prozac to 30 mg daily and she is agreeable. I have placed a call with her outpatient psychiatrist Dr. Andrade to discuss management of antipsychotic medication for her. We were considering use of Seroquel. Mental status exam: The patient is an overweight short statured female. She ambulates slowly with the use of a wheeled walker. She does have resting tremor is visible of her upper extremities. Eye contact is appropriate speech is fluent soft spontaneous at times. She endorses continued depressed and anxious feelings she reports auditory hallucinations as "good voices". Insight and judgment limited. She demonstrates no verbal or physical aggressiveness. Affect is bland. She provides brief answers to questions asked and therefore thought process is fairly linear. Plan: The patient's Prozac will be increased to 30 mg daily. We will consider addition of Seroquel. We will monitor her for safety and encourage her participation in the milieu. We may consider transition to a care home/[facility]FC home placement versus independent living. Vital signs reviewed. We will await recommendations from neurology. Again I will discuss her medication management with her outpatient psychiatrist. She is encouraged to continue participating in the milieu.
[2016-11-08] MEDS: FOLIC ACID 1 MG TAB PO SCH (12:14)
[2016-11-08] MEDS: MULTIVITAMINS, THERA 1 EACH TAB PO SCH (12:14)
--- NOTE | 2016-11-08 18:46 | P.CNNES ---
History of Present Illness Consult date: 11/08/16 History of Present Illness: The patient is a 55-year-old right-handed white female who was admitted on November 05 with suicidal ideations. The patient has a history of chronic psychiatric problems and states that she has been depressed recently particularly because she has not been able to take care of herself as well. The patient does live alone. She was recently hospitalized 2 weeks ago at [facility] with symptoms of tremors. She was placed on Requip at the time for possible Parkinson's. Neurology is consulted at this present admission for further recommendations on Parkinson's disease. The patient reports that in October she was fine until she developed a headache and after the headache was gone she developed stiffness of her entire body along with tremors of her upper arms. Also has slowing. She gait has slowed down and she is having a shuffling gait. She states the Requip which was started at her last hospital admission has helped a little. She has also been experiencing some constipation and some drooling. She has had a CT of the brain recently which showed cerebral atrophy and chronic small vessel ischemia. Her medications at home include levothyroxine ropinirole trazodone and fluoxetine Review of Systems Constitutional: Denies chills, Denies fever Eyes: denies blurred vision, denies pain Ears, nose, mouth and throat: Denies headache, Denies sore throat Cardiovascular: Denies chest pain, Denies shortness of breath Respiratory: Denies cough Gastrointestinal: Denies abdominal pain, Denies diarrhea, Denies nausea, Denies vomiting Genitourinary: Reports as per HPI Musculoskeletal: Reports as per HPI Integumentary: Denies pruritus, Denies rash Neurological: Denies numbness, Denies weakness Psychiatric: Denies anxiety, Denies depression Endocrine: Reports as per HPI Past Medical History Past Medical History: GERD/Reflux, Hyperlipidemia, Hypertension, Thyroid Disorder Additional Past Medical History / Comment(s): Celiac disease History of Any Multi-Drug Resistant Organisms: None Reported Past Surgical History: Section, Tubal Ligation Additional Past Surgical History / Comment(s): Bilateral cataract removal and lens implant Past Anesthesia/Blood Transfusion Reactions: No Reported Reaction Past Psychological History: Anxiety, Depression, Panic Disorder, Schizophrenia Smoking Status: Never smoker Past Alcohol Use History: None Reported Additional Past Alcohol Use History / Comment(s): Patient states she is a lifelong nonsmoker. She denies any medical marijuana, marijuana or street drug use. She denies any alcohol use or abuse. She is currently . She has 2 adult children. One son is and on his own and the second son is in his 20s and living with his grandparents. One son has hearing and vision difficulty. Past Drug Use History: None Reported - Past Family History Father Family Medical History: CVA/TIA, Diabetes Mellitus Additional Family Medical History / Comment(s): Father is alive and his 70s Mother Family Medical History: No Reported History Brother(s) Additional Family Medical History / Comment(s): She has 2 brothers. One at age 43 from lockjaw and 1 is alive with no major medical problems. Patient has no sisters. Medications and Allergies Home Medications Medication Instructions Recorded Confirmed Type Levothyroxine Sodium [Synthroid] 50 mcg PO DAILY 03/10/16 11/05/16 History Acetaminophen Tab [Tylenol] 650 mg PO BID PRN 06/01/16 11/05/16 History Loratadine 10 mg PO DAILY 10/31/16 11/05/16 History Multivitamins, Thera [Multivitamin] 1 tab PO DAILY@1200 11/05/16 11/05/16 History Polyethylene Glycol 3350 [Miralax] 17 gm PO DAILY 11/05/16 11/05/16 History Allergies Allergy/AdvReac Type Severity Reaction Status Date / Time Sulfa (Sulfonamide Allergy Unknown Rash/Hives Verified 11/05/16 22:07 Antibiotics) Physical Examination - Vital Signs Vital Signs: Vital Signs Temp Pulse Resp BP 11/08/16 08:48 85 18 129/75 11/08/16 06:23 98.1 F 62 16 101/63 11/07/16 20:54 71 16 138/73 - Constitutional General appearance: average body habitus - EENT EENT: PERRL - Respiratory Respiratory: lungs clear - Cardiovascular Cardiovascular: regular rate - Integumentary Integumentary: normal - Neurologic Mental status she was awake alert and oriented 3 her affect was flat Cranial nerve examination: PERRL, EOMI, VFF, face symmetric, tongue midline Detailed motor examination: grossly full strength in all extremities ( cogwheel rigidity in both upper extremities), other Detailed sensory examination: intact Posture: rigid - Psychiatric Psychiatric: depressed Results - Laboratory Findings CBC and BMP: 11/05/16 19:20 11/05/16 19:20 Assessment and Plan (1) Parkinsonism Status: Acute Code(s): G20 - PARKINSON'S DISEASE (2) Depression Status: Acute Code(s): F32.9 - MAJOR DEPRESSIVE DISORDER, SINGLE EPISODE, UNSPECIFIED Plan: The patient is a 55-year-old woman with subacute onset Parkinson's like syndrome. There is no obvious medication that was started at the time of her Parkinson's-like affect. She does have a family history of Parkinson's disease. Recommend starting patient on Sinemet 25/100 ,2 times a day area and she can continue on Requip as before. She has already had a CT of the brain which was unremarkable.
[2016-11-08] MEDS: CARBIDOPA-LEVODOPA 25-100 MG 1 EACH TAB PO SCH (20:46)
[2016-11-08] MEDS: traZODone HCL 100 MG TAB PO SCH (20:47)
[2016-11-09] MEDS: CIPROFLOXACIN 0.3% OPHTH SOLN 2.5 ML BTL BOTH EYES SCH ×7 (00:03→21:57)
[2016-11-09] MEDS: LEVOTHYROXINE 50 MCG TAB PO SCH (05:57)
[2016-11-09] MEDS: CARBIDOPA-LEVODOPA 25-100 MG 1 EACH TAB PO SCH ×2 (08:55→21:20)
[2016-11-09] MEDS: POLYETHYLENE GLYCOL 3350 17 GM POWD.PACK PO SCH (08:56)
[2016-11-09] MEDS: PROPRANOLOL 10 MG TAB PO SCH ×3 (08:56→21:21)
[2016-11-09] MEDS: LORATADINE 10 MG TAB PO SCH (08:56)
[2016-11-09] MEDS: FLUoxetine HCL 10 MG CAP PO SCH (08:57)
--- NOTE | 2016-11-09 10:01 | P.PN ---
Progress Note - Text Interval history: The patient is found in her room she follows me to an interview room. She reports that she feels tired she feels that she can't move because of stiffness. She states that she has difficulty with showering eating etc. because of stiffness of her upper extremities. She was seen by neurology and Sinemet was ordered. I did have the opportunity to speak with her outpatient psychiatrist Dr. Andrade and we discussed utilizing Seroquel for symptoms of psychosis. We also discussed possibly utilizing Clozaril but it does not seem that she would tolerate that currently. She reports her mood is "okay". She endorses auditory hallucinations "calling my name", she reports no command auditory hallucinations. Mental status exam: The patient is an overweight female she is ambulating with a wheeled walker. She is ambulating much better with the for wheeled walker. Eye contact is staring in nature she maintains a bland affect. She is dressed in the same close since she has been here. Hygiene is impaired. She is reporting no acute suicidal or homicidal ideation. She is experiencing hallucinations. She reports feeling safe here in the hospital. She demonstrates no verbal or physical aggressiveness. Speech is fluent she responds to questions asked she does not initiate conversation. She continues to demonstrate tremor of her upper extremities and holds them in a rigid posture. She reports having stiffness of her lower jaw and demonstrates that she is not able to open her mouth very far but this appears to be more likely due to her psychosis than actual muscular stiffness. Insight and judgment limited. Plan: The patient will continue on the Prozac I will add Seroquel 50 mg at bedtime to address symptoms of psychosis. We will titrate that medication as needed. Obviously we would like to refrain from use of an antipsychotic given her likely diagnosis of Parkinson's but it is necessary to treat her symptoms. Seroquel is less likely to illicit extraparametal symptoms. We will monitor her blood pressure and for any orthostasis. We will consider discontinuing the Inderal if her blood pressure is low. We will monitor her for safety. We are planning on finding [facility] home placement for her as it does not appear appropriate to have her live alone in her own apartment.
[2016-11-09 10:37] VITALS: BMI 29.5
[2016-11-09] MEDS ORDERED: INFLUENZA VACCINE (3YR+) 60 MCG/0.5 ML SYRINGE IM ONE (10:47)
[2016-11-09] MEDS: FOLIC ACID 1 MG TAB PO SCH (13:21)
[2016-11-09] MEDS: MULTIVITAMINS, THERA 1 EACH TAB PO SCH (13:22)
[2016-11-09] MEDS: traZODone HCL 100 MG TAB PO SCH (21:21)
[2016-11-09] MEDS: QUEtiapine 50 MG TAB PO SCH (21:21)
[2016-11-10] MEDS: CIPROFLOXACIN 0.3% OPHTH SOLN 2.5 ML BTL BOTH EYES SCH ×5 (05:38→20:08)
[2016-11-10] MEDS: LEVOTHYROXINE 50 MCG TAB PO SCH (06:00)
[2016-11-10] MEDS: CARBIDOPA-LEVODOPA 25-100 MG 1 EACH TAB PO SCH ×2 (09:18→20:08)
[2016-11-10] MEDS: FLUoxetine HCL 10 MG CAP PO SCH (09:19)
[2016-11-10] MEDS: POLYETHYLENE GLYCOL 3350 17 GM POWD.PACK PO SCH (09:19)
[2016-11-10] MEDS: LORATADINE 10 MG TAB PO SCH (09:19)
--- NOTE | 2016-11-10 09:19 | P.PN ---
Progress Note - Text Interval history: The patient is found in her room sleeping she follows me to an interview room. She reports being frustrated that she still has difficulty showering and needs assistance. She reports that she slept through the night last night staff documented 5 hours. Appetite stable. Social work notes reviewed it appears someone from the adult foster residential came out to meet with the patient we are awaiting further placement details. The patient's vital signs are reviewed and her blood pressure appears to be decreasing. She reports feeling very tired today. We discussed her medications and decided we would discontinue the beta mike which was recently started here for tremors. She is also now receiving Seroquel and trazodone at bedtime. She is reporting no symptoms of psychosis this morning. Mental status exam: The patient is an overweight female she is dressed in the same clothing. She ambulates with a wheeled walker. Eye contact is intermittent she appears tired but not lethargic. She reports her mood is okay. Her affect is blunted. She reports no acute suicidal or homicidal ideation. She is endorsing no current hallucinations but she has been describing "good voices" up until this morning. She reports feeling safe. She is aware that she will likely be going to an [facility] home and is agreeable. Insight and judgment improving. She demonstrates no verbal or physical aggressiveness and is fairly passive today. Plan: The patient will continue on her current medications however we will discontinue the propranolol. She has recently been started on Sinemet and I feel the propranolol is unnecessarily reducing her blood pressure. We will monitor further. I will reduce the dose of trazodone to 50 mg at bedtime as it' s effect may be carrying over 2 far in the morning and we have recently initiated Seroquel in the evening. We will continue to monitor her for safety. She is encouraged to participate in the milieu. We are awaiting placement with an [facility] home.
[2016-11-10] MEDS: PROPRANOLOL 10 MG TAB PO SCH (09:20)
[2016-11-10] MEDS: FOLIC ACID 1 MG TAB PO SCH (13:28)
[2016-11-10] MEDS: MULTIVITAMINS, THERA 1 EACH TAB PO SCH (13:28)
[2016-11-10] MEDS: QUEtiapine 50 MG TAB PO SCH (20:08)
[2016-11-10] MEDS ORDERED: traZODone HCL 50 MG TAB PO SCH (21:00)
[2016-11-11] MEDS: CIPROFLOXACIN 0.3% OPHTH SOLN 2.5 ML BTL BOTH EYES SCH ×6 (00:55→20:43)
[2016-11-11] MEDS: LEVOTHYROXINE 50 MCG TAB PO SCH (05:55)
[2016-11-11] MEDS: POLYETHYLENE GLYCOL 3350 17 GM POWD.PACK PO SCH (08:51)
[2016-11-11] MEDS: CARBIDOPA-LEVODOPA 25-100 MG 1 EACH TAB PO SCH ×2 (08:52→20:44)
[2016-11-11] MEDS: FLUoxetine HCL 10 MG CAP PO SCH (08:52)
[2016-11-11] MEDS: LORATADINE 10 MG TAB PO SCH (08:52)
--- NOTE | 2016-11-11 09:19 | P.PN ---
Progress Note - Text Interval history: The patient is found in her room sleeping, she is verbally arousable and follows me to an interview room. She reports that her mood is tired. She states she was able to shower yesterday although she has her physical difficulties. She remains compliant with medication. Sleep has been fairly stable overnight appetite stable. Social work had notified me that they are in the process of finding [facility] home placement and there could be a possible available placement Monday. The patient has no questions regarding her medications. We discussed discontinuing the trazodone as she continues to report feeling sedated in the morning. Vital signs reviewed. Mental status exam: The patient is alert she seated calmly in the chair. Eye contact is appropriate speech is fluent nonspontaneous but responsive to questions asked. She will provide brief answers. Affect remains quite bland. She reports her mood is "tired". She is endorsing no acute suicidal or homicidal ideation. She initially denies having no symptoms of psychosis and then states that she does continue to have the "good voices". She is a limited historian to some extent. She is oriented to person place and date. She is demonstrating no verbal or physical aggressiveness. She demonstrates some psychomotor slowing. Mental status exam: The patient will continue on her current medications however I will discontinue the trazodone. We will continue to monitor her for safety she is encouraged to participate more in the milieu. We will continue to monitor blood pressure. If there is appropriate placement available Monday we will anticipate discharging her then. It would not be appropriate for us to discharge her back to her own independent apartment as she would not be able to successfully complete her activities of daily living. She requires hospitalization mental appropriate placement is available. We will consider titrating the Seroquel further.
[2016-11-11] MEDS: FOLIC ACID 1 MG TAB PO SCH (12:12)
[2016-11-11] MEDS: MULTIVITAMINS, THERA 1 EACH TAB PO SCH (12:12)
[2016-11-11] MEDS: QUEtiapine 50 MG TAB PO SCH (20:44)
[2016-11-12] MEDS: CIPROFLOXACIN 0.3% OPHTH SOLN 2.5 ML BTL BOTH EYES SCH ×7 (01:31→20:29)
[2016-11-12] MEDS: LEVOTHYROXINE 50 MCG TAB PO SCH (05:34)
[2016-11-12] MEDS: CARBIDOPA-LEVODOPA 25-100 MG 1 EACH TAB PO SCH ×2 (08:05→20:25)
[2016-11-12] MEDS: FLUoxetine HCL 10 MG CAP PO SCH (08:05)
[2016-11-12] MEDS: LORATADINE 10 MG TAB PO SCH (08:06)
[2016-11-12] MEDS: POLYETHYLENE GLYCOL 3350 17 GM POWD.PACK PO SCH (08:19)
[2016-11-12] MEDS: FOLIC ACID 1 MG TAB PO SCH (14:28)
[2016-11-12] MEDS: MULTIVITAMINS, THERA 1 EACH TAB PO SCH (14:28)
--- NOTE | 2016-11-12 18:48 | PN ---
DATE OF SERVICE: 11/12/2016 CHIEF COMPLAINT: Patient was admitted due to expressing suicide thoughts. She talked about not being able to take care of herself. She is having increasing depression. She was having struggles using her walker at home. She was having problems with basic care issues such as bathing. She was admitted on petition for involuntary hospitalization. INTERVAL HISTORY: Patient has been doing fair. She continues to struggle with some of her physical issues. She has been compliant with medications. There has been efforts to look towards an appropriate foster home situation for the patient. She had a quiet evening last night. She attended some groups yesterday, though declined others. Sometimes she seemed a little irritable when staff encouraged her towards participation. She slept fairly well. Today, she has been up and about. She continues to have some ups and downs in her mood. She has attended groups today. She will interact some with others. She does acknowledge having anxiety and some fearfulness. She says she has uncertainty about foster home placement. She talked about a headache that she had, which seemed to be a point that set off other difficulties for her. She continues to talk about having a significant tremor, and stiffness in her arms and legs. She does have some panic symptoms. Noted that she was told she may have Parkinson's disease. She is on Sinemet 25/100. I would note that she had a hospitalization here November 2014 and was started on Risperdal Consta at that time, I would assume that she has been continue the Risperdal constant, though it is noted that Dr. Andrade had recently discontinued that medication. It is not clear whether Parkinson's symptoms she has is strictly related to extrapyramidal side effects or not. She has been cooperative today. She spends some time in her room. She did responded appropriately to staff support and encouragement. She has not had change in her general health. She tolerates her psychotropic medications. MENTAL STATUS: Patient was in the day area. She gave fair eye contact. Psychomotor activity was slow. Speech was monotone. She answered questions with direct responses. Her thoughts were clear. She did seem to have an anxious manner. She had a mild parkinsonian type tremor, some of the time when she would make comments about her tremor, she would get much more intense in her shaking. Then it would quiet down when she was walking with her walker. She was somewhat reserved in her mood. She did not appear to be significantly distressed. ASSESSMENT: I will continue the current diagnosis and treatment plan. I will continue to Prozac 30 mg a day. I will discontinue Seroquel 50 mg to reduce risk for extrapyramidal side effects. I will give her a trial on Cogentin 1 mg twice a day whether or not she will show any benefits from that along with Sinemet remains to be seen. I discussed with the patient that if she is having EPS strictly relating to Risperdal Consta that it could be one month or much longer for that to gradually resolve just in regards to clearing Consta from her system and allowing her to get back to baseline. We will continue to focus on stabilization and discharge planning. Labs including CBC, basic metabolic profile, hemoglobin A and urinalysis. We will assess for any signs of diabetes or other general health issues. We will continue to focus on stabilization and discharge planning.
[2016-11-12] MEDS: BENZTROPINE MESYLATE 1 MG TAB PO SCH ×2 (19:09→20:48)
[2016-11-13] MEDS: CIPROFLOXACIN 0.3% OPHTH SOLN 2.5 ML BTL BOTH EYES SCH ×7 (03:14→23:39)
[2016-11-13] MEDS: LEVOTHYROXINE 50 MCG TAB PO SCH (06:05)
[2016-11-13] MEDS: POLYETHYLENE GLYCOL 3350 17 GM POWD.PACK PO SCH (08:22)
[2016-11-13] MEDS: CARBIDOPA-LEVODOPA 25-100 MG 1 EACH TAB PO SCH ×2 (08:24→20:49)
[2016-11-13] MEDS: FLUoxetine HCL 10 MG CAP PO SCH (08:24)
[2016-11-13] MEDS: BENZTROPINE MESYLATE 1 MG TAB PO SCH ×2 (08:24→20:49)
[2016-11-13] MEDS: MULTIVITAMINS, THERA 1 EACH TAB PO SCH (08:25)
[2016-11-13] MEDS: LORATADINE 10 MG TAB PO SCH (08:25)
[2016-11-13] MEDS: FOLIC ACID 1 MG TAB PO SCH (08:25)
[2016-11-14] MEDS: CIPROFLOXACIN 0.3% OPHTH SOLN 2.5 ML BTL BOTH EYES SCH ×2 (05:59→08:38)
[2016-11-14 07:03] VITALS: BP 114/65; PULSE 74; RESP 18; TEMP 98
[2016-11-14] MEDS: LEVOTHYROXINE 50 MCG TAB PO SCH (07:06)
[2016-11-14] MEDS: BENZTROPINE MESYLATE 1 MG TAB PO SCH (08:38)
[2016-11-14] MEDS: FLUoxetine HCL 10 MG CAP PO SCH (08:39)
[2016-11-14] MEDS: CARBIDOPA-LEVODOPA 25-100 MG 1 EACH TAB PO SCH (08:39)
[2016-11-14] MEDS: POLYETHYLENE GLYCOL 3350 17 GM POWD.PACK PO SCH (08:40)
[2016-11-14] MEDS: LORATADINE 10 MG TAB PO SCH (08:40)
--- NOTE | 2016-11-14 10:54 | PN ---
DATE OF SERVICE: 11/13/2016 CHIEF COMPLAINT: Patient was admitted due to expressing suicide thoughts. She talked about not being able to take care of herself. She is having increasing depression. She was having struggles using her walker at home. She was having problems with basic care issues such as bathing. She was admitted on petition for involuntary hospitalization. INTERVAL HISTORY: Patient has been doing fair. She had a quiet evening last night. She attended groups yesterday afternoon and evening. She seemed a little disorganized in her thoughts. She was not showing much effort in terms of personal hygiene and self-care. She slept fairly well. Today, she has been up and about. She is in a better mood. She talked at length about how she was able to manage a shower on her own today, which was a positive for her. She has been quite focused on whether or not she could live independently, what would be the status of her apartment if she goes into [facility] and so forth. She seemed to be discussing these issues fairly reasonable. She said she could except the idea that she may need rehabilitation and a supportive environment, though she also has a goal for living independently. She has had a fairly good. She gets herself around the unit. She has been walking fairly steadily. In regards to psychotropic medications, in reviewing mental health records going back to 2009, the patient has been a number of antipsychotic medications including Risperdal, Haldol, Latuda, Xanax, fluphenazine decanoate, Abilify up until January 2015. Since then she has been on fluphenazine decanoate 25 mg IM every 2 weeks. Her last dose was apparently August 31. The note in the records indicates that the September injection was discontinued because the patient was having falls. She has not had change in her general health. I discontinued her Seroquel so she did not receive a dose last evening. She did not have any problems with the discontinuation. She slept fair last night. Overall she does seem to be a little more steady her on her feet. She has been making more efforts to walk around the unit. MENTAL STATUS: Patient gave good eye contact. She approached me several different times. Psychomotor activity was normal. Thoughts were clear. She answered questions appropriately. She was spontaneous. She was focused on some issues regarding discharge planning. She also was quite positive about the fact that she was able to take a shower on her own without difficulty. It was noteworthy that, while in the morning she had seemed just a little reserved in her manner, in the afternoon she appeared quite relaxed. She had good color in her skin tone. She had a broad range of affect. She smiled. Her thoughts were coherent. Her mood was even. She did not appear to be distressed. There was no indication of thought disorder. ASSESSMENT: I will continue the current diagnosis. At this point the patient continues on Prozac 30 mg a day and Cogentin 1 mg twice a day. It is difficult to say whether or not Parkinsonian symptoms relate to her fluphenazine decanoate that she had been on up through at least September. It certainly is the case that these symptoms could take a number of months to settle down once she is off a long acting injectable antipsychotic. It is noteworthy that the patient has not been on Zyprexa, which is the antipsychotic with the least incidence of EPS and Parkinsonian symptoms, save for clozapine. She might be a good candidate for either Zyprexa or clozapine in regards to any underlying psychotic issues. At this point her mood is improving. The main issue will be to coordinate with community mental health in regards to discharge planning and assessing what her overall care needs will be. We will continue to focus on stabilization and discharge planning.
--- NOTE | 2016-11-14 11:01 | P.DS ---
Providers Date of admission: 11/05/16 20:34 Expected date of discharge: 11/14/16 Attending physician: Zurdo Cuellar Consults: 11/05/16 20:37 Consult Physician Routine Consulting Provider: Elza Garcia Consult Reason/Comments: H&P Do you want consulting provider notified?: Yes 11/07/16 17:38 Consult Physician Routine Consulting Provider: Reynaldo Diaz Consult Reason/Comments: RO Parkinson disease Do you want consulting provider notified?: Yes Primary care physician: Cindy Gardner - Discharge Diagnosis(es) (1) Schizoaffective disorder Current Visit: Yes Status: Acute Priority: High Hospital Course: Brief summary of admission note: The patient is a 55-year-old female who was admitted to the mental health unit to the emergency room with a petition. The petition had noted the patient expressed suicidal ideation and she reported having trouble caring for herself. She was found to be tearful during assessment. She felt overwhelmed because of her physical limitations including tremors of her upper extremities. She had a plan of overdosing with medication in terms of suicidal ideation. She was admitted to the mental health unit by Dr. Mireles for full details please refer to his psychiatric assessment dated 11/06/2016. Summary of hospital course: The patient was admitted to the mental health unit she did sign in voluntarily. She was continued on her Prozac by Dr. Mireles. It appears that she was on Prolixin decanoate most recently as an antipsychotic but that was discontinued on 08/31/2016. Records from [facility] were reviewed. Additionally I was able to confer with the [facility] mental health liaison and also with Dr. Andrade via phone her outpatient psychiatrist. During the hospitalization she was seen by the director of infection prevention for routine medical consultation. She was given an antibiotic eyedrop for presumed conjunctivitis and a neurology consult was ordered. The patient did demonstrate significant cogwheeling of her upper extremities and she was started on Sinemet. She reported some relief with the Sinemet. Her Prozac was titrated to 30 mg daily while on the mental health unit and we added Seroquel in low-dose at bedtime. During the course of the state she reported a progressive improvement of symptoms and she has been doing better with participating in activities of daily living. It was determined that she would be best served by residing at an [facility] home and those arrangements were made with permission/assistance from her guardian. The patient's reporting no suicidal ideation and she is endorsing no current symptoms of psychosis. Mental status exam: The patient is a short statured overweight female she ambulates with a wheeled walker. She is dressed in her own clothing. Eye contact is appropriate speech is fluent soft spontaneous at times usually brief in nature. Thought process is fairly brief and limited she demonstrates no tangential thinking loose associations or flight of ideas. She reports that her mood is improved affect remains constricted. She is endorsing no current auditory or visual hallucinations now but she has reported having some "good voices" that are supportive. She is reporting no paranoid or persecutory thoughts currently. She does continue to have some concern regarding her physical abilities but is reassured that [facility] home staff will help with ADLs. She demonstrates no verbal or physical aggressiveness. She is alert and oriented to person place and date today. Insight and judgment have improved. She is reporting no suicidal or homicidal ideation intent or plan. Impressions 1. Schizoaffective disorder, depressed type II. Hypothyroidism, recent conjunctivitis, presumed Parkinson's disease, celiac disease, GERD, history of hyperlipidemia 3. Psychosocial dysfunction due to psychiatric and medical comorbidities Plan: The patient will be discharged today to an [facility] home designated by her guardian. She will continue on Prozac 30 mg daily Seroquel 50 mg at bedtime. Along with her other medication she will continue Sinemet prescribed by neurology and will likely benefit from outpatient neurology follow-up. There is no imminent safety risk she is appropriate for transition to outpatient care. She will continue to follow with [facility] for outpatient psychiatric services. She will continue to follow with her primary care physician. She is instructed to return to the emergency room with any acute safety concerns and she is agreeable area Patient Condition at Discharge: Stable Plan - Discharge Summary New Discharge Prescriptions: Carbidopa-Levodopa 25-100 mg [Sinemet 25-100 mg] 1 each PO BID #60 tab FLUoxetine HCL [PROzac] 30 mg PO DAILY #90 cap Folic Acid 1 mg PO DAILY@1200 #30 tab Levothyroxine Sodium [Synthroid] 50 mcg PO DAILY #30 tab Loratadine 10 mg PO DAILY #30 tablet Multivitamins, Thera [Multivitamin] 1 tab PO DAILY@1200 #30 tab Polyethylene Glycol 3350 [Miralax] 17 gm PO DAILY #30 powd.pack QUEtiapine [SEROquel] 50 mg PO HS #30 tab Discharge Medication List Acetaminophen Tab [Tylenol] 650 mg PO BID PRN 06/01/16 [History] Carbidopa-Levodopa 25-100 mg [Sinemet 25-100 mg] 1 each PO BID #60 tab 11/14/16 [Rx] FLUoxetine HCL [PROzac] 30 mg PO DAILY #90 cap 11/14/16 [Rx] Folic Acid 1 mg PO DAILY@1200 #30 tab 11/14/16 [Rx] Levothyroxine Sodium [Synthroid] 50 mcg PO DAILY #30 tab 11/14/16 [Rx] Loratadine 10 mg PO DAILY #30 tablet 11/14/16 [Rx] Multivitamins, Thera [Multivitamin] 1 tab PO DAILY@1200 #30 tab 11/14/16 [Rx] Polyethylene Glycol 3350 [Miralax] 17 gm PO DAILY #30 powd.pack 11/14/16 [Rx] QUEtiapine [SEROquel] 50 mg PO HS #30 tab 11/14/16 [Rx] Follow up Appointment(s)/Referral(s): Cindy Gardner MD [Primary Care Provider] - 1-2 days
[2016-11-14] MEDS: FOLIC ACID 1 MG TAB PO SCH (12:00)
[2016-11-14] MEDS: MULTIVITAMINS, THERA 1 EACH TAB PO SCH (12:00)
[2016-11-14] MEDS ORDERED: QUEtiapine 50 MG TAB PO SCH (21:00)
== END 2016-11-14 15:39 | disposition home or self-care (01) | DRG 885 ==
LOC: EC 16:01 → EEVIPCON 16:01 → 3MHU 20:34
PROVIDERS: ADMIT Psychiatry & Neurology Psychiatry; ATTEND Psychiatry & Neurology Psychiatry
DX: F25.1 Schizoaffective disorder, depressive type (principal); G20 Parkinson's disease; R45.851 Suicidal ideations; E04.1 Nontoxic single thyroid nodule; E03.9 Hypothyroidism, unspecified; E66.3 Overweight; E78.00 Pure hypercholesterolemia, unspecified; E78.5 Hyperlipidemia, unspecified; F43.10 Post-traumatic stress disorder, unspecified; G47.00 Insomnia, unspecified; I10 Essential (primary) hypertension; K21.9 Gastro-esophageal reflux disease without esophagitis; K59.00 Constipation, unspecified; K90.0 Celiac disease; Z81.8 Family history of other mental and behavioral disorders; Z79.899 Other long term (current) drug therapy
CPT/HCPCS: 36415; 74000; 80053; 80306; 82075; 83520; 84443; 85025; 90686; 99285

== ENCOUNTER → 2016-12-08 | Outpatient (CLI) | payer OTHER ==
--- NOTE | 2016-12-08 14:55 | MR ---
EXAMINATION TYPE: MR brain wo con DATE OF EXAM: 12/08/2016 1:33 PM COMPARISON: NONE HISTORY: Tremors, Parkinsons disease CONTRAST: Performed utilizing 0 mL intravenous Omniscan gadolinium contrast. TECHNIQUE: Multiplanar, multiecho imaging on a 3.0 Kathia magnet is performed through the brain. Stud y is performed within 24 hours of arrival to the hospital. The craniovertebral junction is normal. The pituitary is normal. Diffusion-weighted imaging is performed. No abnormal hyperintensity is present to suggest an acute i ntracranial infarct or acute ischemic change. There are a few subcortical and periventricular white matter changes which are hyperintense on the in version recovery weighted sequences. Findings are nonspecific but can be related to chronic white mat ter ischemic changes. Substantia nigra and red nucleus separation appears normal. Ventricles and sulci are appropriate for the patient age. IMPRESSIONS: 1. Few scattered small areas of chronic appearing white matter ischemic changes.
== END ==
LOC: RADMRIMAIN 13:01
PROVIDERS: ATTEND Psychiatry & Neurology Neurology
DX: G20 Parkinson's disease (principal)
CPT/HCPCS: 70551

== ENCOUNTER → 2017-01-09 | Outpatient (CLI) | payer OTHER ==
--- NOTE | 2017-01-11 06:56 | MM ---
Reason for exam: screening (asymptomatic). Last mammogram was performed 1 year and 2 months ago. History: Patient is postmenopausal. Taking hormonal contraceptives for 4 months. Physical Findings: A clinical breast exam by your physician is recommended on an annual basis and results should be correlated with mammographic findings. MG Screening Mammo w CAD Bilateral CC and MLO view(s) were taken. Prior study comparison: November 02, 2015, bilateral MG screening mammo w CAD. May 28, 2014, bilateral MG screening mammo w CAD. December 23, 2011, bilateral digital screening mammo w/CAD. There are scattered fibroglandular densities. Nodular asymmetry posterior upper outer quadrant right breast is new. ASSESSMENT: Incomplete: need additional imaging evaluation, BI-RAD 0 RECOMMENDATION: Special view mammogram of the right breast. If lesion persists on supplemental views, image directed ultrasound is recommended. [facility] will attempt to contact patient to return for supplemental views and ultrasound if indicated.
== END ==
LOC: RADMAMWWP 14:18
PROVIDERS: ATTEND Family Medicine
DX: Z12.31 Encounter for screening mammogram for malignant neoplasm of breast (principal)

== ENCOUNTER → 2017-09-06 | Outpatient (CLI) | payer OTHER ==
--- NOTE | 2017-09-06 09:20 | MM ---
Reason for exam: follow-up at short interval from prior study. Last mammogram was performed 8 months ago. History: Patient is postmenopausal. Took hormonal contraceptives for 4 months. Physical Findings: Nurse did not find any significant physical abnormalities on exam. MG Diagnostic Mammo RT w CAD CC and MLO view(s) were taken of the right breast. Prior study comparison: January 13, 2017, right breast MG work up mamm w CAD RT. January 09, 2017, bilateral MG screening mammo w CAD. The breast tissue is heterogeneously dense. This may lower the sensitivity of mammography. Finding: There are typically benign round, linear, regional calcifications in the right breast. There is a chronic nodularity in the right breast. There is no discrete abnormality. These results were verbally communicated with the patient and result sheet given to the patient on 09/06/17. ASSESSMENT: Benign, BI-RAD 2 RECOMMENDATION: Return to routine screening mammogram schedule for both breasts. Back on schedule for January 2018. Manage on a clinical basis with regard to bilateral pain.
--- NOTE | 2017-09-06 09:25 | USB ---
Reason for exam: follow-up at short interval from prior study. History: Patient is postmenopausal. Took hormonal contraceptives for 4 months. US Breast RT Right breast ultrasound includes all four quadrants, the retroareolar region and axilla. Finding demonstrates 9mm oval, solid, questionable node at 9-10 o'clock, benign. These results were verbally communicated with the patient and result sheet given to the patient on 09/06/17. ASSESSMENT: Benign, BI-RAD 2 RECOMMENDATION: Return to routine screening mammogram schedule for both breasts. Back on schedule for January 2018. Manage on a clinical basis with regard to bilateral pain.
== END | disposition home or self-care (01) ==
LOC: RADMAMWWP 08:05
PROVIDERS: ATTEND Family Medicine
DX: N63.10 Unspecified lump in the right breast, unspecified quadrant (principal)
CPT/HCPCS: 76641; G0206

== ENCOUNTER → 2017-10-27 | Outpatient (CLI) | payer OTHER ==
[2017-10-27 12:18] LABS: Blood Urea Nitrogen 13 mg/dL (7-17); Cholesterol 202 mg/dL (<200); Glucose 103 mg/dL (74-99); HDL Cholesterol 77 mg/dL (40-60); LDL Cholesterol,Calculated 102 mg/dL (0-99); Triglycerides 115 mg/dL (<150)
[2017-10-27 12:42] LABS: T4, Free (Free Thyroxine) 1.17 ng/dL (0.78-2.19)
[2017-10-27 17:55] LABS: Hemoglobin A1C 5.6 % (4.0-6.0)
== END | disposition home or self-care (01) ==
LOC: LABWHC1 11:28
PROVIDERS: ATTEND Psychiatry & Neurology Psychiatry
DX: Z51.81 Encounter for therapeutic drug level monitoring (principal); Z79.899 Other long term (current) drug therapy
CPT/HCPCS: 36415; 80061; 82565; 82947; 83036; 84439; 84443; 84520

== ENCOUNTER → 2018-02-19 | Outpatient (CLI) | payer OTHER ==
--- NOTE | 2018-02-19 16:45 | CT ---
EXAMINATION TYPE: CT brain cspine wo con DATE OF EXAM: 02/19/2018 COMPARISON: CT brain October 31, 2016. CT cervical spine August 16, 2016. HISTORY: Patient poor historian. History of parkinsons. Headache and neck pain. CT DLP: 1202.1 mGycm. Automated Exposure Control for Dose Reduction was Utilized. TECHNIQUE: CT scan of the head and cervical spine are performed without contrast. FINDINGS: There is no acute intracranial hemorrhage or midline shift identified. There is ventricul ar and sulcal prominence consistent with diffuse cerebral atrophy. There is low-attenuation in the p eriventricular white matter redemonstrated. The globes are intact and the visualized sinuses are bev r. Cervical spine is visualized in its entirety from C1 through upper thoracic levels and demonstrates s traightened alignment without evidence of acute fracture or dislocation. Prevertebral soft tissue ap pears within normal limits. The C1-C2 articulation is within normal limits on the coronal images. Vertebral body heights are maintained. There is mild disc space narrowing and spurring C5-C6 level an d C6-C7 levels redemonstrated. Posterior spur disc complexes are effacing anterior thecal sac at thes e levels. Visualized lung apices are clear. Thyroid gland is felt normal in size. IMPRESSION: 1. There is no acute fracture or dislocation evident in the cervical spine. Straightening of spine wi th mild multilevel degenerative changes redemonstrated as detailed above. 2. No acute intracranial hemorrhage or midline shift is seen. There is mild to moderate diffuse cereb ral atrophy and chronic small vessel ischemic change redemonstrated without significant interval [place] [facility].
== END | disposition home or self-care (01) ==
LOC: RADCTMAIN 16:02
PROVIDERS: ATTEND Psychiatry & Neurology Neurology
DX: G20 Parkinson's disease (principal)
CPT/HCPCS: 70450; 72125

== ENCOUNTER 2018-03-30 04:58 | Observation (INO) | payer OTHER ==
[2018-03-30 05:59] LABS: Basophils % (A) 0 %; Eosinophils # (A) 0.2 k/uL (0-0.7); Eosinophils % (A) 3 %; HCT 39.9 % (34.0-46.0); HGB 13.2 gm/dL (11.4-16.0); Lymphocytes # (A) 2.9 k/uL (1.0-4.8); Lymphocytes % (A) 30 %; MCH 29.9 pg (25.0-35.0); MCHC 33.2 g/dL (31.0-37.0); MCV 90.2 fL (80.0-100.0); Mean Platelet Volume 7.5; Monocytes # (A) 0.3 k/uL (0-1.0); Monocytes % (A) 3 %; Neutrophils # (A) 5.9 k/uL (1.3-7.7); Neutrophils % (A) 63 %; Platelet Count 339 k/uL (150-450); RBC 4.42 m/uL (3.80-5.40); RDW 13.2 % (11.5-15.5); WBC 9.4 k/uL (3.8-10.6)
--- NOTE | 2018-03-30 06:00 | ED ---
General Adult HPI - General Source: patient, EMS, RN notes reviewed, old records reviewed Mode of arrival: EMS Limitations: no limitations <Eric Peck - Last Filed: 03/30/18 06:52> <Lucas Andrade - Last Filed: 03/30/18 10:27> - General Chief complaint: Chest Pain Stated complaint: chest pain Time Seen by Provider: 03/30/18 05:33 - History of Present Illness Initial comments: This is a 57 showed female the ER with chest pain. Patient has severe anterior chest pain awoke her out of sleep tonight. Patient has history of heart disease high cholesterol retention. Patient coming in with chest pain is "from sleep prior to arrival. And has persisted through now. Patient did take nitro with minimal improvement. No recent cough congestion. No recent travel history no sick contacts. No known fevers (Eric Peck) - Related Data Home Medications Medication Instructions Recorded Confirmed Acetaminophen Tab [Tylenol] 650 mg PO BID PRN 06/01/16 03/30/18 Carbidopa-Levodopa 25-100 mg 1 tab PO BID 03/30/18 03/30/18 [Sinemet 25-100 mg] FLUoxetine HCL [PROzac] 20 mg PO DAILY 03/30/18 03/30/18 Latanoprost [Xalatan 0.005%] 1 drop BOTH EYES HS 03/30/18 03/30/18 busPIRone HCL 15 mg PO BID 03/30/18 03/30/18 Previous Rx's Medication Instructions Recorded Folic Acid 1 mg PO DAILY@1200 #30 tab 11/14/16 Levothyroxine Sodium [Synthroid] 50 mcg PO DAILY #30 tab 11/14/16 Loratadine 10 mg PO DAILY #30 tablet 11/14/16 Multivitamins, Thera [Multivitamin 1 tab PO DAILY@1200 #30 tab 11/14/16 (formulary)] Allergies Allergy/AdvReac Type Severity Reaction Status Date / Time Sulfa (Sulfonamide Allergy Unknown Rash/Hives Verified 03/30/18 07:33 Antibiotics) Review of Systems ROS Other: All systems not noted in ROS Statement are negative. <Eric Peck - Last Filed: 03/30/18 06:52> ROS Other: All systems not noted in ROS Statement are negative. <Lucas Andrade - Last Filed: 03/30/18 10:27> ROS Statement: Those systems with pertinent positive or pertinent negative responses have been documented in the HPI. Past Medical History Past Medical History: Eye Disorder, GERD/Reflux, Hyperlipidemia, Hypertension, Neurologic Disorder, Thyroid Disorder Additional Past Medical History / Comment(s): Celiac disease, Parkinson's Disease History of Any Multi-Drug Resistant Organisms: None Reported Past Surgical History: Section, Tubal Ligation Additional Past Surgical History / Comment(s): Bilateral cataract removal and lens implant Past Anesthesia/Blood Transfusion Reactions: No Reported Reaction Past Psychological History: Anxiety, Depression, Panic Disorder, Schizophrenia Smoking Status: Never smoker Past Alcohol Use History: None Reported Past Drug Use History: None Reported - Past Family History Father Family Medical History: CVA/TIA, Diabetes Mellitus Additional Family Medical History / Comment(s): Father is alive and his 70s Mother Family Medical History: No Reported History Brother(s) Additional Family Medical History / Comment(s): She has 2 brothers. One at age 43 from lockjaw and 1 is alive with no major medical problems. Patient has no sisters. <PhyllisalyshaEric B - Last Filed: 03/30/18 06:52> General Exam Limitations: no limitations General appearance: alert, in no apparent distress Head exam: Present: atraumatic, normocephalic, normal inspection Eye exam: Present: normal appearance, PERRL, EOMI. Absent: scleral icterus, conjunctival injection, periorbital swelling ENT exam: Present: normal exam, mucous membranes moist Neck exam: Present: normal inspection. Absent: tenderness, meningismus, lymphadenopathy Respiratory exam: Present: normal lung sounds bilaterally. Absent: respiratory distress, wheezes, rales, rhonchi, stridor Cardiovascular Exam: Present: regular rate, normal rhythm, normal heart sounds. Absent: systolic murmur, diastolic murmur, rubs, gallop, clicks GI/Abdominal exam: Present: soft, normal bowel sounds. Absent: distended, tenderness, guarding, rebound, rigid Extremities exam: Present: normal inspection, full ROM, normal capillary refill. Absent: tenderness, pedal edema, joint swelling, calf tenderness Back exam: Present: normal inspection Neurological exam: Present: alert, oriented X3, CN II-XII intact Psychiatric exam: Present: normal affect, normal mood Skin exam: Present: warm, dry, intact, normal color. Absent: rash <Eric Peck - Last Filed: 03/30/18 06:52> Course <Eric Peck - Last Filed: 03/30/18 06:52> <Lucas Andrade - Last Filed: 03/30/18 10:27> Vital Signs 03/30/18 03/30/18 03/30/18 05:04 05:09 06:24 Temperature 98.8 F Pulse Rate 89 74 89 Respiratory 22 20 18 Rate Blood Pressure 209/92 162/66 180/94 O2 Sat by Pulse 95 99 97 Oximetry 03/30/18 07:08 Temperature 97.7 F Pulse Rate 95 Respiratory 20 Rate Blood Pressure 169/84 O2 Sat by Pulse [address] chest was reviewed, PE study is negative (Lucas Andrade) - Reevaluation(s) Reevaluation #1: 03/30/18 06:11 Medical record is reviewed (Eric Peck) EKG Findings - EKG Comments: EKG Findings:: AG shows normal sinus rhythm rate of 79, [place] 150, QRS 80, QTC 4:30 <Eric Peck - Last Filed: 03/30/18 06:52> Medical Decision Making - Lab Data Result diagrams: 03/30/18 05:10 03/30/18 05:10 <Eric Peck - Last Filed: 03/30/18 06:52> - Lab Data Result diagrams: 03/30/18 05:10 03/30/18 05:10 <Lucas Andrade - Last Filed: 03/30/18 10:27> - Lab Data Lab Results 03/30/18 03/30/18 03/30/18 Range/Units 05:10 05:10 05:10 WBC 9.4 (3.8-10.6) k/uL RBC 4.42 (3.80-5.40) m/uL Hgb 13.2 (11.4-16.0) gm/dL Hct 39.9 (34.0-46.0) % MCV 90.2 (80.0-100.0) fL MCH 29.9 (25.0-35.0) pg MCHC 33.2 (31.0-37.0) g/dL RDW 13.2 (11.5-15.5) % Plt Count 339 (150-450) k/uL Neutrophils % 63 % Lymphocytes % 30 % Monocytes % 3 % Eosinophils % 3 % Basophils % 0 % Neutrophils # 5.9 (1.3-7.7) k/uL Lymphocytes # 2.9 (1.0-4.8) k/uL Monocytes # 0.3 (0-1.0) k/uL Eosinophils # 0.2 (0-0.7) k/uL Basophils # 0.0 (0-0.2) k/uL PT (9.0-12.0) sec INR (<1.2) APTT (22.0-30.0) sec D-Dimer (<0.60) mg/L FEU Sodium 140 (137-145) mmol/L Potassium 4.1 (3.5-5.1) mmol/L Chloride 102 (98-107) mmol/L Carbon Dioxide 25 (22-30) mmol/L Anion Gap 13 mmol/L BUN 20 H (7-17) mg/dL Creatinine 0.60 (0.52-1.04) mg/dL Est GFR (CKD-EPI)AfAm >90 (>60 ml/min/1.73 sqM) Est GFR (CKD-EPI)NonAf >90 (>60 ml/min/1.73 sqM) Glucose 181 H (74-99) mg/dL Calcium 9.3 (8.4-10.2) mg/dL Magnesium 1.8 (1.6-2.3) mg/dL Total Bilirubin 0.4 (0.2-1.3) mg/dL AST 29 (14-36) U/L ALT 34 (9-52) U/L Alkaline Phosphatase 134 H (38-126) U/L Total Creatine Kinase 66 (30-135) U/L CK-MB (CK-2) 0.4 (0.0-2.4) ng/mL CK-MB (CK-2) Rel Index 0.6 Troponin I <0.012 (0.000-0.034) ng/mL Total Protein 6.5 (6.3-8.2) g/dL Albumin 4.0 (3.5-5.0) g/dL Lipase 54 (23-300) U/L 03/30/18 Range/Units 05:10 WBC (3.8-10.6) k/uL RBC (3.80-5.40) m/uL Hgb (11.4-16.0) gm/dL Hct (34.0-46.0) % MCV (80.0-100.0) fL MCH (25.0-35.0) pg MCHC (31.0-37.0) g/dL RDW (11.5-15.5) % Plt Count (150-450) k/uL Neutrophils % % Lymphocytes % % Monocytes % % Eosinophils % % Basophils % % Neutrophils # (1.3-7.7) k/uL Lymphocytes # (1.0-4.8) k/uL Monocytes # (0-1.0) k/uL Eosinophils # (0-0.7) k/uL Basophils # (0-0.2) k/uL PT 9.4 (9.0-12.0) sec INR 0.9 (<1.2) APTT 23.1 (22.0-30.0) sec D-Dimer 0.77 H (<0.60) mg/L FEU Sodium (137-145) mmol/L Potassium (3.5-5.1) mmol/L Chloride (98-107) mmol/L Carbon Dioxide (22-30) mmol/L Anion Gap mmol/L BUN (7-17) mg/dL Creatinine (0.52-1.04) mg/dL Est GFR (CKD-EPI)AfAm (>60 ml/min/1.73 sqM) Est GFR (CKD-EPI)NonAf (>60 ml/min/1.73 sqM) Glucose (74-99) mg/dL Calcium (8.4-10.2) mg/dL Magnesium (1.6-2.3) mg/dL Total Bilirubin (0.2-1.3) mg/dL AST (14-36) U/L ALT (9-52) U/L Alkaline Phosphatase (38-126) U/L Total Creatine Kinase (30-135) U/L CK-MB (CK-2) (0.0-2.4) ng/mL CK-MB (CK-2) Rel Index Troponin I (0.000-0.034) ng/mL Total Protein (6.3-8.2) g/dL Albumin (3.5-5.0) g/dL Lipase (23-300) U/L Critical Care Time Critical Care Time: Yes Total Critical Care Time: 31 <Eric Peck - Last Filed: 03/30/18 06:52> Disposition Is patient prescribed a controlled substance at d/c from ED?: No <Eric Peck - Last Filed: 03/30/18 06:52> <Lucas Andrade - Last Filed: 03/30/18 10:27> Clinical Impression: Chest pain Disposition: ADMITTED IP TO THIS HOSP Condition: Undetermined
[2018-03-30 06:07] LABS: ALT 34 U/L (9-52); AST 29 U/L (14-36); Alkaline Phosphatase 134 U/L (38-126); Anion Gap 13 mmol/L; Blood Urea Nitrogen 20 mg/dL (7-17); Calcium 9.3 mg/dL (8.4-10.2); Carbon Dioxide 25 mmol/L (22-30); Chloride 102 mmol/L (98-107); Glucose 181 mg/dL (74-99); Lipase 54 U/L (23-300); Magnesium 1.8 mg/dL (1.6-2.3); Potassium 4.1 mmol/L (3.5-5.1); Sodium 140 mmol/L (137-145); Total Bilirubin 0.4 mg/dL (0.2-1.3); Total Protein 6.5 g/dL (6.3-8.2)
[2018-03-30 06:13] LABS: Creatine Kinase 66 U/L (30-135); INR 0.9 (<1.2); Partial Thromboplastin Time 23.1 sec (22.0-30.0); Prothrombin Time 9.4 sec (9.0-12.0)
[2018-03-30] MEDS ORDERED: MORPHINE SULFATE 2 MG/ML SYRINGE IVP STA (06:17)
[2018-03-30 06:27] LABS: Creatine Kinase MB 0.4 ng/mL (0.0-2.4); Troponin I <0.012 ng/mL (0.000-0.034)
--- NOTE | 2018-03-30 06:27 | XR ---
EXAMINATION TYPE: XR chest 2V DATE OF EXAM: 03/30/2018 COMPARISON: 03/30/2014 HISTORY: Chest pain TECHNIQUE: Frontal and lateral views of the chest are obtained. FINDINGS: Heart and mediastinum are normal. Lungs are clear. Diaphragm is normal. There are chest le ads. IMPRESSION: Normal chest. No change.
[2018-03-30 06:31] LABS: D-Dimer 0.77 mg/L FEU (<0.60)
[2018-03-30] MEDS ORDERED: HEPARIN SODIUM,PORCINE 5,000 UNIT/ML 1 ML VIAL IV PRN (06:50)
[2018-03-30] MEDS ORDERED: MORPHINE SULFATE 2 MG/ML SYRINGE IV PRN (06:50)
[2018-03-30] MEDS ORDERED: HEPARIN SODIUM,PORCINE 5,000 UNIT/ML 1 ML VIAL IV ONE (06:50)
[2018-03-30] MEDS ORDERED: NITROGLYCERIN SL TABS 0.4 MG TAB SUBLINGUAL PRN (06:50)
[2018-03-30] MEDS ORDERED: HEPARIN SOD,PORK IN 0.45% NACL 25,000 UNIT in 0.45% NACL 1 500ML.BAG IV SCH (07:00)
--- NOTE | 2018-03-30 07:19 | CT ---
EXAMINATION TYPE: CT abdomen pelvis w con DATE OF EXAM: 03/30/2018 COMPARISON: NONE HISTORY: Chest pain. Back pain. CT DLP: mGycm Automated exposure control for dose reduction was used. TECHNIQUE: Helical acquisition of images was performed from the lung bases through the pelvis. Contrast was Isovue 100 mL IV. FINDINGS: Lung bases are clear of infiltrate. There is no pleural effusion. There is no pericardial effusion. Liver shows no focal defect. There is slight decreased density in the liver consistent with fatty inf iltration. Spleen and pancreas appear normal. Gallbladder is large but not dilated. Gallbladder measu res 3.7 cm in diameter. There is no adrenal mass. Kidneys show satisfactory contrast opacification. There is no hydronephrosi s. There is 1.2 cm cortical cyst on the lateral right kidney. There is no ascites. Bladder distends smoothly. There are numerous phleboliths in the pelvis. There i s no evidence of a pelvic mass. There is no intestinal wall thickening. There are no dilated loops. T here is no sign of free air. Lumbar spine is intact. I see no bony destructive process. Appendix is n ot seen. There is no sign of appendicitis. IMPRESSION: NEGATIVE CT SCAN OF THE ABDOMEN AND PELVIS. SMALL RIGHT RENAL CORTICAL CYST. FATTY INFILTRATION OF TH E LIVER.
[2018-03-30] MEDS: ATORVASTATIN 80 MG TAB PO SCH (08:13)
[2018-03-30] MEDS: METOPROLOL TARTRATE 25 MG TAB PO SCH ×2 (08:13→21:16)
--- NOTE | 2018-03-30 08:13 | CT ---
EXAM: CT Angiography Chest With Intravenous Contrast CLINICAL HISTORY: Pain TECHNIQUE: Axial computed tomographic angiography images of the chest with intravenous contrast using pulmonary embolism protocol. This CT exam was performed using one or more of the following dose reduction techniques: automated exposure control, adjustment of the mA and/or kV according to patient size, and/or use of iterative reconstruction technique. CTDI 80 DLP 1800. MIP reconstructed images were created and reviewed. Coronal and sagittal reformatted images were created and reviewed. COMPARISON: Correlated with prior chest radiograph. FINDINGS: Pulmonary arteries: Unremarkable. No pulmonary embolism. Aorta: No acute findings. No thoracic aortic aneurysm. Lungs: Unremarkable. No mass. No consolidation. Pleural space: Unremarkable. No significant effusion. No pneumothorax. Heart: Unremarkable. No cardiomegaly. No significant pericardial effusion. No evidence of RV dysfunction. Bones/joints: No acute fracture. No dislocation. Soft tissues: Unremarkable. Lymph nodes: Unremarkable. No enlarged lymph nodes. IMPRESSION: No evidence of PE or dissection. No focal consolidative process or pleural effusions.
[2018-03-30 13:00] LABS: Creatine Kinase 50 U/L (30-135)
[2018-03-30 13:12] LABS: Creatine Kinase MB 0.4 ng/mL (0.0-2.4); Troponin I <0.012 ng/mL (0.000-0.034)
--- NOTE | 2018-03-30 14:17 | CONS ---
CONSULTATION A 57-year-old female who came in complaining of chest discomfort. On more detailed questioning, she actually had woke up with abdominal discomfort that spread up into her chest. She got very nervous and she came to the hospital. MEDICATIONS: Medications at home include Sinemet, fluoxetine, Xalatan and buspirone. ALLERGIES: SULFA. REVIEW OF SYSTEMS: No fever, chills, or rigors. No cough or expectoration. No nausea, vomiting, or diarrhea. No hematuria or dysuria. No strokes, seizures or skin lesions. No musculoskeletal complaints. EXAMINATION: She is afebrile and pulse rate in the 60s and 70s. Respirations are normal. Blood pressure 126/62 mmHg. Head and neck examination is normal. Heart sounds are normal. Lungs are clear to auscultation. Abdomen is tender especially in the right upper quadrant. LABS: Were reviewed. Cardiac enzymes are normal x2. Electrolytes are normal. Amylase, lipase normal. White count is normal. IMPRESSION: Abdominal pain that spread up to the chest with normal cardiac enzymes normal ECG. SUGGESTS: Three sets of cardiac enzymes and workup for her abdominal pain. MMODL / IJN: [id number] /
--- NOTE | 2018-03-30 15:37 | P.HPIM ---
History of Present Illness This is a pleasant is a pleasant 57 years old female with past medical history of GERD, hyperlipidemia, hypertension, memory impairment, coronary artery disease/myocardial infarction, neurological disease, thyroid disorder, Parkinson disease, celiac disease, lower GI bleed. Presents because of chest pain and abdominal pain. Patient woke up 2:00 in the morning with a bad dream and as well as she tripped trying to get back to sleep she started having abdominal pain and shortly after it was up to [facility] chest as per patient the abdominal pain is in the epigastric area and moving up to the central chest area also onto the right side. Patient states is achy was more severe earlier however with the treatment now is bearable at 1-2/10 in severity with no associated nausea vomiting. However she says her abdominal chest pain was central nonradiating now is completely resolved 0/10 as earlier associated with some dyspnea but now her breathing and is fine. Also patient complaining of from some back pain In the ED patient was found to have elevated d-dimer, CTPA shows no evidence of PE. As per occupational health nursing director patient recommended workup for abdominal pain spreading to the chest. Patient had CAT scan of the abdomen and pelvis with contrast which was unremarkable for acute process, see report Review of Systems CONSTITUTIONAL: No fever, no malaise, no fatigue. HEENT: No recent visual problems or hearing problems. Denied any sore throat. CARDIOVASCULAR: No orthopnea, PND, no palpitations, no syncope. PULMONARY: No shortness of breath, no cough, no hemoptysis. GASTROINTESTINAL: No diarrhea, no nausea, no vomiting, no abdominal pain. Normoactive bowel sounds. NEUROLOGICAL: No headaches, no weakness, no numbness. HEMATOLOGICAL: Denies any bleeding or petechiae. GENITOURINARY: Denies any burning micturition, frequency, or urgency. MUSCULOSKELETAL/RHEUMATOLOGICAL: Denies any joint pain, swelling, or any muscle pain. ENDOCRINE: Denies any polyuria or polydipsia. Past Medical History Past Medical History: Eye Disorder, GERD/Reflux, Hyperlipidemia, Hypertension, Memory Impairment, Myocardial Infarction (MS), Neurologic Disorder, Thyroid Disorder Additional Past Medical History / Comment(s): Bilateral glaucoma, possible MS , parkinson's disease, celiac's disease, hypothyroid, UTIs, UTI with sepsis , lower GI bleed, anemia. Last Myocardial Infarction Date:: Possible MS 2012 History of Any Multi-Drug Resistant Organisms: None Reported Past Surgical History: Section, Tubal Ligation Additional Past Surgical History / Comment(s): Bilateral cataract removal and lens implant, colonoscopy Past Anesthesia/Blood Transfusion Reactions: No Reported Reaction Smoking Status: Never smoker - Past Family History Father Family Medical History: CVA/TIA, Diabetes Mellitus Additional Family Medical History / Comment(s): Father is alive and his 70s Mother Family Medical History: No Reported History Brother(s) Additional Family Medical History / Comment(s): She has 2 brothers. One at age 43 from lockjaw and 1 is alive with no major medical problems. Patient has no sisters. Medications and Allergies Home Medications Medication Instructions Recorded Confirmed Type Acetaminophen Tab [Tylenol] 650 mg PO BID PRN 06/01/16 03/30/18 History Folic Acid 1 mg PO DAILY@1200 #30 tab 11/14/16 03/30/18 Rx Levothyroxine Sodium [Synthroid] 50 mcg PO DAILY #30 tab 11/14/16 03/30/18 Rx Loratadine 10 mg PO DAILY #30 tablet 11/14/16 03/30/18 Rx Multivitamins, Thera [Multivitamin 1 tab PO DAILY@1200 #30 tab 11/14/16 Rx (formulary)] Carbidopa-Levodopa 25-100 mg 1 tab PO BID 03/30/18 03/30/18 History [Sinemet 25-100 mg] FLUoxetine HCL [PROzac] 20 mg PO DAILY 03/30/18 03/30/18 History Latanoprost [Xalatan 0.005%] 1 drop BOTH EYES HS 03/30/18 03/30/18 History busPIRone HCL 15 mg PO BID 03/30/18 03/30/18 History Allergies Allergy/AdvReac Type Severity Reaction Status Date / Time Sulfa (Sulfonamide Allergy Unknown Rash/Hives Verified 03/30/18 07:33 Antibiotics) Physical Exam Vitals: Vital Signs Temp Pulse Pulse Resp BP BP Pulse Ox 03/30/18 12:00 69 03/30/18 11:31 69 16 126/62 96 03/30/18 08:00 97.3 F L 83 16 187/82 97 03/30/18 07:08 97.7 F 95 20 169/84 95 03/30/18 06:24 89 18 180/94 97 03/30/18 05:09 74 20 162/66 99 03/30/18 05:04 98.8 F 89 22 209/92 95 Intake and Output 03/29/18 03/30/18 03/30/18 22:59 06:59 14:59 Intake Total 326.75 Balance 326.75 Intake: Intake, IV Titration 104.75 Amount Heparin Sod,Pork in 0.45% 104.75 NaCl 25,000 unit In 0.45 % NaCl 1 500ml.bag @ 12 UNITS/KG/HR 17.41 mls/hr IV .Q24H LEONARDO Rx#: [id number] Oral 222 Other: # Voids 1 Weight 72.575 kg 72.6 kg GENERAL: The patient is alert and oriented x3, not in any acute distress. Well developed, well nourished. HEENT: Pupils are round and equally reacting to light. EOMI. No scleral icterus. No conjunctival pallor. Normocephalic, atraumatic. No pharyngeal erythema. No thyromegaly. CARDIOVASCULAR: S1 and S2 present. No murmurs, rubs, or gallops. PULMONARY: Chest is clear to auscultation, no wheezing or crackles. ABDOMEN: Soft, nontender, nondistended, normoactive bowel sounds. No palpable organomegaly. MUSCULOSKELETAL: No joint swelling or deformity. EXTREMITIES: No cyanosis, clubbing, or pedal edema. NEUROLOGICAL: Gross neurological examination did not reveal any focal deficits. SKIN: No rashes. Results CBC & Chem 7: 03/30/18 05:10 03/30/18 05:10 Labs: Abnormal Lab Results - Last 24 Hours (Table) 03/30/18 03/30/18 03/30/18 Range/Units 05:10 05:10 12:07 APTT 38.9 H (22.0-30.0) sec D-Dimer 0.77 H (<0.60) mg/L FEU BUN 20 H (7-17) mg/dL Glucose 181 H (74-99) mg/dL Alkaline Phosphatase 134 H (38-126) U/L Thrombosis Risk Factor Assmnt - Choose All That Apply Any of the Below Risk Factors Present?: Yes Each Factor Represents 1 point: Age 41-60 years, Obesity (BMI >25) Other Risk Factors: No Other congenital or acquired thrombophilia - If yes, enter type in comment: No Thrombosis Risk Factor Assessment Total Risk Factor Score: 2 Thrombosis Risk Factor Assessment Level: Low Risk Assessment and Plan Plan: -Abdominal pain. Continue with pain management, CT of the abdomen and pelvis is reviewed. Will call, surgery consult -Chest pain, occupational health nursing director evaluated the patient who recommended 3 cardiac enzymes sets and workup for abdominal pain. Continue with aspirin. -Parkinson disease continue with same and treatment -History of schizophrenia, follow-up on mental health on discharge -h/o glaucoma , pt is asked to bring them from home and she agrees DVT prophylaxis she is already on heparin GI prophylaxis Protonix PT OT evaluation is pending Prognosis is guarded
[2018-03-30] MEDS: PANTOPRAZOLE 40 MG/10 ML VIAL IVP SCH (17:03)
[2018-03-30 17:52] LABS: Creatine Kinase 45 U/L (30-135)
[2018-03-30 18:02] LABS: Creatine Kinase MB 0.3 ng/mL (0.0-2.4); Troponin I <0.012 ng/mL (0.000-0.034)
[2018-03-30] MEDS: busPIRone HCl 5 MG TAB PO SCH (20:57)
[2018-03-30] MEDS: LATANOPROST 0.005% OPHTH DROPS 2.5 ML BTL BOTH EYES SCH (20:57)
[2018-03-30] MEDS: CARBIDOPA-LEVODOPA 25-100 MG 1 EACH TAB PO SCH (20:57)
[2018-03-30] MEDS ORDERED: FAMOTIDINE 20 MG/2 ML VIAL IV SCH (21:00)
[2018-03-31] MEDS: LEVOTHYROXINE 50 MCG TAB PO SCH (06:04)
[2018-03-31 06:58] LABS: Mean Platelet Volume 6.9; Platelet Count 339 k/uL (150-450)
[2018-03-31 07:09] LABS: Cholesterol 155 mg/dL (<200); HDL Cholesterol 73 mg/dL (40-60); LDL Cholesterol,Calculated 64 mg/dL (0-99); Triglycerides 89 mg/dL (<150)
--- NOTE | 2018-03-31 07:38 | P.PN ---
Subjective This is a pleasant is a pleasant 57 years old female with past medical history of GERD, hyperlipidemia, hypertension, memory impairment, coronary artery disease/myocardial infarction, neurological disease, thyroid disorder, Parkinson disease, celiac disease, lower GI bleed. Presents because of chest pain and abdominal pain. Patient woke up 2:00 in the morning with a bad dream and as well as she tripped trying to get back to sleep she started having abdominal pain and shortly after it was up to [facility] as per patient the abdominal pain is in the epigastric area and moving up to the central chest area also onto the right side. Patient states is achy was more severe earlier however with the treatment now is bearable at 1-2/10 in severity with no associated nausea vomiting. However she says her abdominal chest pain was central nonradiating now is completely resolved 0/10 as earlier associated with some dyspnea but now her breathing and is fine. Also patient complaining of from some back pain In the ED patient was found to have elevated d-dimer, CTPA shows no evidence of PE. As per publications production supervisor patient recommended workup for abdominal pain spreading to the chest. Patient had CAT scan of the abdomen and pelvis with contrast which was unremarkable for acute process, see report 03/31/2018 Patient chest pain is completely resolved. No dyspnea. No dizziness or syncope. Patient abdominal pain is still there but this milder today mainly in the epigastrium versus right upper quadrant however on examination she have generalized tenderness and some abdominal distention. No jejunum bowel habits. No nausea vomiting. Patient tolerated diet well. Abdominal x-ray is ordered Objective - Vital Signs Vital signs: Vital Signs Temp 97.8 F 03/31/18 00:00 Pulse 62 03/31/18 04:00 Resp 18 03/31/18 04:00 BP 91/49 03/31/18 04:00 Pulse Ox 93 L 03/31/18 04:00 Intake & Output 03/30/18 03/31/18 03/31/18 18:59 06:59 18:59 Intake Total 686.75 Output Total 0 Balance 686.75 0 Weight 72.6 kg 72.3 kg Intake: Intake, IV Titration 104.75 Amount Heparin Sod,Pork in 0.45% 104.75 NaCl 25,000 unit In 0.45 % NaCl 1 500ml.bag @ 12 UNITS/KG/HR 17.41 mls/hr IV .Q24H LEONARDO Rx#: [id number] Oral 582 Output: Urine 0 Other: Voiding Method Toilet # Voids 1 1 - Exam GENERAL: The patient is alert and oriented x3, not in any acute distress. Well developed, well nourished. HEENT: Pupils are round and equally reacting to light. EOMI. No scleral icterus. No conjunctival pallor. Normocephalic, atraumatic. No pharyngeal erythema. No thyromegaly. CARDIOVASCULAR: S1 and S2 present. No murmurs, rubs, or gallops. PULMONARY: Chest is clear to auscultation, no wheezing or crackles. ABDOMEN: Soft, nontender, nondistended, normoactive bowel sounds. No palpable organomegaly. MUSCULOSKELETAL: No joint swelling or deformity. EXTREMITIES: No cyanosis, clubbing, or pedal edema. NEUROLOGICAL: Gross neurological examination did not reveal any focal deficits. SKIN: No rashes. - Labs CBC & Chem 7: 03/31/18 05:57 03/30/18 05:10 Labs: Abnormal Lab Results - Last 24 Hours (Table) 03/30/18 03/31/18 Range/Units 12:07 05:57 APTT 38.9 H (22.0-30.0) sec HDL Cholesterol 73 H (40-60) mg/dL Assessment and Plan Plan: -Abdominal pain. Continue with pain management, CT of the abdomen and pelvis is reviewed. Will call, surgery consult. f/u abdominal x-ray -Chest pain, publications production supervisor evaluated the patient who recommended 3 cardiac enzymes sets were negative. Continue with aspirin. Resolved today -Parkinson disease continue with same and treatment -History of schizophrenia, patient denies hallucination, delusion. She doesn't have suicidal or homicidal ideation. Patient was asked to bring her home medication and she agrees. follow-up on mental health on discharge -h/o glaucoma , pt is asked to bring them from home and she agrees DVT prophylaxis she is already on heparin GI prophylaxis Protonix PT OT evaluation is pending Prognosis is guarded
--- NOTE | 2018-03-31 08:25 | XR ---
EXAMINATION TYPE: XR abdomen 1V DATE OF EXAM: 03/31/2018 CLINICAL DATA: 57 year-old female abdominal distention and pain, follow-up exam, [facility] COMPARISON: CT 03/30/2018 FINDINGS: Supine imaging limited for assessment of free air. No dilated small bowel loops are seen. Persistent scattered colonic gas with mild stool burden. Multiple pelvic phleboliths are noted. There are now 2 elongated densities measuring 2.5 x 0.5 cm in the pelvis, possibly ingested foreign b julian material or external artifact and should be correlated clinically. IMPRESSION: 1. Nonobstructive bowel gas pattern. 2. Two densities now project over the pelvis and could represent external artifact or ingested foreig n body material. Clinical correlation recommended.
[2018-03-31] MEDS: busPIRone HCl 5 MG TAB PO SCH ×2 (08:50→21:22)
[2018-03-31] MEDS: ATORVASTATIN 80 MG TAB PO SCH (08:50)
[2018-03-31] MEDS: FLUoxetine HCL 20 MG CAP PO SCH (08:50)
[2018-03-31] MEDS: ASPIRIN 325 MG TAB PO SCH (08:50)
[2018-03-31] MEDS: PANTOPRAZOLE 40 MG/10 ML VIAL IVP SCH (08:50)
[2018-03-31] MEDS: CARBIDOPA-LEVODOPA 25-100 MG 1 EACH TAB PO SCH ×2 (08:50→21:22)
[2018-03-31] MEDS: METOPROLOL TARTRATE 25 MG TAB PO SCH ×2 (08:50→21:22)
[2018-03-31] MEDS: FOLIC ACID 1 MG TAB PO SCH (11:49)
[2018-03-31] MEDS: MULTIVITAMINS, THERA 1 EACH TAB PO SCH (11:49)
[2018-03-31] MEDS: LATANOPROST 0.005% OPHTH DROPS 2.5 ML BTL BOTH EYES SCH (21:21)
--- NOTE | 2018-03-31 21:46 | XR ---
EXAMINATION TYPE: XR abdomen 1V DATE OF EXAM: 03/31/2018 CLINICAL DATA: 57-year-old female rule out foreign body, [facility] COMPARISON: Earlier today FINDINGS: No dilated small bowel or air-fluid levels. Scattered air and stool seen throughout the colon extendi ng distally into the rectum. Scattered moderate stool is now present. Multiple pelvic phleboliths. The previously seen 2 radiopaque densities which projected over the pelv is are no longer present. IMPRESSION: 1. Now moderate stool burden. Nonobstructive bowel gas pattern. 2. The previously seen 2 foreign bodies projecting over the pelvis are no longer identified and could have represented external artifact
[2018-04-01] MEDS: LEVOTHYROXINE 50 MCG TAB PO SCH (06:26)
[2018-04-01 06:52] LABS: Basophils % (A) 0 %; Eosinophils # (A) 0.4 k/uL (0-0.7); Eosinophils % (A) 3 %; HCT 41.9 % (34.0-46.0); HGB 13.8 gm/dL (11.4-16.0); Lymphocytes # (A) 2.6 k/uL (1.0-4.8); Lymphocytes % (A) 22 %; MCHC 32.9 g/dL (31.0-37.0); MCV 91.3 fL (80.0-100.0); Mean Platelet Volume 7.2; Monocytes # (A) 0.4 k/uL (0-1.0); Monocytes % (A) 3 %; Neutrophils # (A) 8.6 k/uL (1.3-7.7); Neutrophils % (A) 71 %; Platelet Count 347 k/uL (150-450); RBC 4.59 m/uL (3.80-5.40); RDW 13.8 % (11.5-15.5); WBC 12.2 k/uL (3.8-10.6)
[2018-04-01 07:04] LABS: Anion Gap 10 mmol/L; Blood Urea Nitrogen 19 mg/dL (7-17); Calcium 9.4 mg/dL (8.4-10.2); Carbon Dioxide 29 mmol/L (22-30); Chloride 99 mmol/L (98-107); Glucose 114 mg/dL (74-99); Potassium 4.6 mmol/L (3.5-5.1); Sodium 138 mmol/L (137-145)
[2018-04-01] MEDS: busPIRone HCl 5 MG TAB PO SCH ×2 (08:05→20:52)
[2018-04-01] MEDS: ASPIRIN 325 MG TAB PO SCH (08:05)
[2018-04-01] MEDS: PANTOPRAZOLE 40 MG/10 ML VIAL IVP SCH (08:06)
[2018-04-01] MEDS: METOPROLOL TARTRATE 25 MG TAB PO SCH ×2 (08:06→20:52)
[2018-04-01] MEDS: CARBIDOPA-LEVODOPA 25-100 MG 1 EACH TAB PO SCH ×2 (08:06→20:52)
[2018-04-01] MEDS: FLUoxetine HCL 20 MG CAP PO SCH (08:06)
[2018-04-01] MEDS: ATORVASTATIN 80 MG TAB PO SCH (08:06)
--- NOTE | 2018-04-01 08:07 | P.PN ---
Subjective This is a pleasant is a pleasant 57 years old female with past medical history of GERD, hyperlipidemia, hypertension, memory impairment, coronary artery disease/myocardial infarction, neurological disease, thyroid disorder, Parkinson disease, celiac disease, lower GI bleed. Presents because of chest pain and abdominal pain. Patient woke up 2:00 in the morning with a bad dream and as well as she tripped trying to get back to sleep she started having abdominal pain and shortly after it was up to [facility] as per patient the abdominal pain is in the epigastric area and moving up to the central chest area also onto the right side. Patient states is achy was more severe earlier however with the treatment now is bearable at 1-2/10 in severity with no associated nausea vomiting. However she says her abdominal chest pain was central nonradiating now is completely resolved 0/10 as earlier associated with some dyspnea but now her breathing and is fine. Also patient complaining of from some back pain In the ED patient was found to have elevated d-dimer, CTPA shows no evidence of PE. As per tying in machine operator patient recommended workup for abdominal pain spreading to the chest. Patient had CAT scan of the abdomen and pelvis with contrast which was unremarkable for acute process, see report 03/31/2018 Patient chest pain is completely resolved. No dyspnea. No dizziness or syncope. Patient abdominal pain is still there but this milder today mainly in the epigastrium versus right upper quadrant however on examination she have generalized tenderness and some abdominal distention. No jejunum bowel habits. No nausea vomiting. Patient tolerated diet well. Abdominal x-ray is ordered 04/01/2018 Patient chest pain is completely resolved. No dyspnea. No dizziness or syncope. Patient have some scattered cough without phlegm. Patient abdominal pain is still there but this milder today mainly in the epigastrium versus right upper quadrant however on examination she has more tenderness and some abdominal distention with guarding. No jejunum bowel habits. No nausea vomiting. Patient tolerated diet well. Abdominal x-ray suspicious for foreign body, repeat abdominal x-ray: No foreign body Objective - Vital Signs Vital signs: Vital Signs Temp 98.0 F 03/31/18 23:36 Pulse 66 04/01/18 04:00 Resp 18 04/01/18 04:00 BP 123/62 04/01/18 04:00 Pulse Ox 95 04/01/18 04:00 Intake & Output 06/04/01/18 04/01/18 18:59 06:59 18:59 Intake Total 736 10 Balance 736 10 Weight 72 kg Intake: IV 10 .9 10 Oral 736 Other: # Voids 1 1 - Exam GENERAL: The patient is alert and oriented x3, not in any acute distress. Well developed, well nourished. HEENT: Pupils are round and equally reacting to light. EOMI. No scleral icterus. No conjunctival pallor. Normocephalic, atraumatic. No pharyngeal erythema. No thyromegaly. CARDIOVASCULAR: S1 and S2 present. No murmurs, rubs, or gallops. PULMONARY: Chest is clear to auscultation, no wheezing or crackles. -ABDOMEN: Soft, , nondistended, normoactive bowel sounds. No palpable organomegaly. Epigastric and right upper quadrant tenderness, no rebound tenderness, positive for guarding MUSCULOSKELETAL: No joint swelling or deformity. EXTREMITIES: No cyanosis, clubbing, or pedal edema. NEUROLOGICAL: Gross neurological examination did not reveal any focal deficits. SKIN: No rashes. - Labs CBC & Chem 7: 04/01/18 06:16 04/01/18 06:16 Labs: Abnormal Lab Results - Last 24 Hours (Table) 04/01/18 04/01/18 Range/Units 06:16 06:16 WBC 12.2 H (3.8-10.6) k/uL Neutrophils # 8.6 H (1.3-7.7) k/uL BUN 19 H (7-17) mg/dL Glucose 114 H (74-99) mg/dL Assessment and Plan Plan: -Abdominal pain. Continue with pain management, CT of the abdomen and pelvis is reviewed. Will call GI consult. mild leukocytosis, do UA, -Chest pain, tying in machine operator evaluated the patient who recommended 3 cardiac enzymes sets were negative. Continue with aspirin. Resolved today -Parkinson disease continue with same and treatment -History of schizophrenia, patient denies hallucination, delusion. She doesn't have suicidal or homicidal ideation. Patient was asked to bring her home medication and she agrees. follow-up on mental health on discharge -h/o glaucoma , pt is asked to bring them from home and she agrees DVT prophylaxis she is already on heparin GI prophylaxis Protonix PT OT: ECF placement Prognosis is guarded
[2018-04-01] MEDS: MULTIVITAMINS, THERA 1 EACH TAB PO SCH (11:02)
[2018-04-01] MEDS: FOLIC ACID 1 MG TAB PO SCH (11:03)
[2018-04-01 14:33] LABS: Appearance,Urine Clear (Clear); Bilirubin,Urine Negative (Negative); Blood,Urine Negative (Negative); Color,Urine Light Yellow; Glucose,Urine (UA) Negative (Negative); Ketones,Urine Negative (Negative); Leukocyte Esterase,Urine Small (Negative); Mucus,Urine Rare /hpf; Nitrite,Urine Negative (Negative); PH, Urine 6.5 (5.0-8.0); Protein,Urine Negative (Negative); Specific Gravity,Urine 1.009 (1.001-1.035); Squamous Epithelial Cell,Urine 1 /hpf (0-4); Urobilinogen,Urine <2.0 mg/dL (<2.0); WBC,Urine 3 /hpf (0-5)
[2018-04-01] MEDS: LATANOPROST 0.005% OPHTH DROPS 2.5 ML BTL BOTH EYES SCH (20:52)
[2018-04-01] MEDS: ACETAMINOPHEN TAB 325 MG TAB PO PRN (21:41)
[2018-04-02] MEDS: LEVOTHYROXINE 50 MCG TAB PO SCH (06:01)
--- NOTE | 2018-04-02 08:21 | P.PN ---
Subjective This is a pleasant is a pleasant 57 years old female with past medical history of GERD, hyperlipidemia, hypertension, memory impairment, coronary artery disease/myocardial infarction, neurological disease, thyroid disorder, Parkinson disease, celiac disease, lower GI bleed. Presents because of chest pain and abdominal pain. Patient woke up 2:00 in the morning with a bad dream and as well as she tripped trying to get back to sleep she started having abdominal pain and shortly after it was up to [facility] as per patient the abdominal pain is in the epigastric area and moving up to the central chest area also onto the right side. Patient states is achy was more severe earlier however with the treatment now is bearable at 1-2/10 in severity with no associated nausea vomiting. However she says her abdominal chest pain was central nonradiating now is completely resolved 0/10 as earlier associated with some dyspnea but now her breathing and is fine. Also patient complaining of from some back pain In the ED patient was found to have elevated d-dimer, CTPA shows no evidence of PE. As per ophthalmic lens inspector patient recommended workup for abdominal pain spreading to the chest. Patient had CAT scan of the abdomen and pelvis with contrast which was unremarkable for acute process, see report 03/31/2018 Patient chest pain is completely resolved. No dyspnea. No dizziness or syncope. Patient abdominal pain is still there but this milder today mainly in the epigastrium versus right upper quadrant however on examination she have generalized tenderness and some abdominal distention. No jejunum bowel habits. No nausea vomiting. Patient tolerated diet well. Abdominal x-ray is ordered 04/01/2018 Patient chest pain is completely resolved. No dyspnea. No dizziness or syncope. Patient have some scattered cough without phlegm. Patient abdominal pain is still there but this milder today mainly in the epigastrium versus right upper quadrant however on examination she has more tenderness and some abdominal distention with guarding. No jejunum bowel habits. No nausea vomiting. Patient tolerated diet well. Abdominal x-ray suspicious for foreign body, repeat abdominal x-ray: No foreign body \ 04/02/2018 Patient remains to be chest pain-free. No dyspnea. Patient was noticed last night, blood per rectum when wiping, however she is not sure if she so some blood with her stool. Patient actually denies abdominal pain but on examination she has significant tenderness in the upper and lower abdomen but mainly in the epigastric area. No rebound tenderness no guarding. No fever. Repeat abdominal x-ray shows no foreign body. Objective - Vital Signs Vital signs: Vital Signs Temp 97.7 F 04/02/18 04:38 Pulse 54 L 04/02/18 04:38 Resp 14 04/02/18 04:38 BP 116/75 04/02/18 04:38 Pulse Ox 96 04/02/18 04:38 Intake & Output 04/01/18 04/02/18 04/02/18 18:59 06:59 18:59 Intake Total 400 620 240 Output Total 715 300 Balance -315 320 240 Weight 72.4 kg Intake: IV 620 .9 610 Invasive Line 1 10 Oral 400 240 Output: Urine 715 300 Other: Voiding Method Toilet Toilet - Exam GENERAL: The patient is alert and oriented x3, not in any acute distress. Well developed, well nourished. HEENT: Pupils are round and equally reacting to light. EOMI. No scleral icterus. No conjunctival pallor. Normocephalic, atraumatic. No pharyngeal erythema. No thyromegaly. CARDIOVASCULAR: S1 and S2 present. No murmurs, rubs, or gallops. PULMONARY: Chest is clear to auscultation, no wheezing or crackles. -ABDOMEN: Soft, , nondistended, normoactive bowel sounds. No palpable organomegaly. Epigastric and right upper quadrant tenderness, no rebound tenderness, positive for guarding MUSCULOSKELETAL: No joint swelling or deformity. EXTREMITIES: No cyanosis, clubbing, or pedal edema. NEUROLOGICAL: Gross neurological examination did not reveal any focal deficits. SKIN: No rashes. - Labs CBC & Chem 7: 04/02/18 07:06 04/01/18 06:16 Labs: Abnormal Lab Results - Last 24 Hours (Table) 04/01/18 Range/Units 14:15 Ur Leukocyte Esterase Small H (Negative) Urine Mucus Rare H (None) /hpf Assessment and Plan Plan: -Abdominal pain. RUQ versus epigastrium tenderness. Blood per rectum on wiping. Continue with pain management, CT of the abdomen and pelvis is reviewed. Will call GI consult. Follow-up hemoglobin. Check iron studies -mild leukocytosis, do UA: This unremarkable for infection -Chest pain, ophthalmic lens inspector evaluated the patient who recommended 3 cardiac enzymes sets were negative. Continue with aspirin. Resolved -Parkinson disease continue with same and treatment -History of schizophrenia, patient denies hallucination, delusion. She doesn't have suicidal or homicidal ideation. Patient was asked to bring her home medication and she agrees. follow-up on mental health on discharge -h/o glaucoma , pt is asked to bring them from home and she agrees DVT prophylaxis she is already on heparin GI prophylaxis Protonix PT OT: ECF placement Prognosis is guarded
[2018-04-02] MEDS: busPIRone HCl 5 MG TAB PO SCH ×2 (09:02→20:43)
[2018-04-02] MEDS: ASPIRIN 325 MG TAB PO SCH (09:02)
[2018-04-02] MEDS: ATORVASTATIN 80 MG TAB PO SCH (09:02)
[2018-04-02] MEDS: PANTOPRAZOLE 40 MG/10 ML VIAL IVP SCH (09:03)
[2018-04-02] MEDS: METOPROLOL TARTRATE 25 MG TAB PO SCH ×2 (09:03→20:43)
[2018-04-02] MEDS: FLUoxetine HCL 20 MG CAP PO SCH (09:03)
[2018-04-02] MEDS: CARBIDOPA-LEVODOPA 25-100 MG 1 EACH TAB PO SCH ×2 (09:03→20:43)
[2018-04-02 10:40] LABS: Basophils % (A) 0 %; Eosinophils # (A) 0.4 k/uL (0-0.7); Eosinophils % (A) 4 %; HCT 42.3 % (34.0-46.0); HGB 13.6 gm/dL (11.4-16.0); Lymphocytes # (A) 3.1 k/uL (1.0-4.8); Lymphocytes % (A) 32 %; MCH 29.2 pg (25.0-35.0); MCHC 32.1 g/dL (31.0-37.0); MCV 90.9 fL (80.0-100.0); Mean Platelet Volume 7.7; Monocytes # (A) 0.4 k/uL (0-1.0); Monocytes % (A) 4 %; Neutrophils # (A) 5.6 k/uL (1.3-7.7); Neutrophils % (A) 58 %; RBC 4.65 m/uL (3.80-5.40); RDW 13.2 % (11.5-15.5); WBC 9.6 k/uL (3.8-10.6)
[2018-04-02 10:43] LABS: Platelet Count 324 k/uL (150-450)
[2018-04-02 11:00] LABS: Anion Gap 9 mmol/L; Blood Urea Nitrogen 23 mg/dL (7-17); Calcium 9.1 mg/dL (8.4-10.2); Carbon Dioxide 30 mmol/L (22-30); Chloride 100 mmol/L (98-107); Glucose 106 mg/dL (74-99); Potassium 4.9 mmol/L (3.5-5.1); Sodium 139 mmol/L (137-145)
[2018-04-02 11:12] LABS: Iron Saturation 12.1 (12.00-45.00)
[2018-04-02] MEDS: FOLIC ACID 1 MG TAB PO SCH (11:40)
[2018-04-02] MEDS: MULTIVITAMINS, THERA 1 EACH TAB PO SCH (11:40)
--- NOTE | 2018-04-02 17:33 | P.CONS ---
History of Present Illness - Reason for Consult Consult date: 04/01/18 Abdominal pain - History of Present Illness The patient is a 57-year-old female with past medical history of GERD, hyperlipidemia, hypertension, memory impairment, coronary artery disease/ myocardial infarction, thyroid disorder, Parkinson disease, celiac disease, lower GI bleed who presented because of chest pain and abdominal pain. Patient woke up 2:00 in the morning with a bad dream and tried to get back to sleep when she started having abdominal pain in the epigastric area and felt the pain moving up to the central chest area and right side. Also patient was complaining of from some back pain. No nausea, vomiting or hematemesis. No change in the color of her stools. In the ED patient was found to have elevated d-dimer, CTPA showed no evidence of PE. As per rn clinical appeals patient was recommended workup for abdominal pain. Patient had CAT scan of the abdomen and pelvis with contrast which was unremarkable for an acute process. The patient had colonoscopy with Dr. Olmos in 2012. Review of Systems Constitutional: Denies fever, chills, sweats, weight gain, or loss. HEENT: Negative for migraines, blurred vision or loss, earaches, drainage, tinnitus, oral mucosal lesions, dysphagia, or odynophagia. CARDIAC: Negative for chest pain, arrhythmias, or palpitation. RESPIRATORY: Negative for shortness of breath, hemoptysis, cough, or sputum production. GI: See HPI for pertinent findings. : Negative for hematuria, urgency, frequency, polyuria, or dysuria. MUSCULOSKELETAL: Negative for muscle aches, swelling, arthritis, and arthralgias. NEUROLOGIC: Negative for stroke or TIA. ENDOCRINE: Negative for thyroid problems. SKIN: Negative for rash or itching. PSYCHIATRIC: Negative history for depression and anxiety Past Medical History Past Medical History: Eye Disorder, GERD/Reflux, Hyperlipidemia, Hypertension, Memory Impairment, Myocardial Infarction ([place]), Neurologic Disorder, Thyroid Disorder Additional Past Medical History / Comment(s): Bilateral glaucoma, possible [place] , parkinson's disease, celiac's disease, hypothyroid, UTIs, UTI with sepsis , lower GI bleed, anemia. Last Myocardial Infarction Date:: Possible [place] 2012 History of Any Multi-Drug Resistant Organisms: None Reported Past Surgical History: Section, Tubal Ligation Additional Past Surgical History / Comment(s): Bilateral cataract removal and lens implant, colonoscopy Past Anesthesia/Blood Transfusion Reactions: No Reported Reaction Smoking Status: Never smoker - Past Family History Father Family Medical History: CVA/TIA, Diabetes Mellitus Additional Family Medical History / Comment(s): Father is alive and his 70s Mother Family Medical History: No Reported History Brother(s) Additional Family Medical History / Comment(s): She has 2 brothers. One at age 43 from lockjaw and 1 is alive with no major medical problems. Patient has no sisters. Medications and Allergies Home Medications Medication Instructions Recorded Confirmed Type Acetaminophen Tab [Tylenol] 650 mg PO BID PRN 06/01/16 03/30/18 History Folic Acid 1 mg PO DAILY@1200 #30 tab 11/14/16 03/30/18 Rx Levothyroxine Sodium [Synthroid] 50 mcg PO DAILY #30 tab 11/14/16 03/30/18 Rx Loratadine 10 mg PO DAILY #30 tablet 11/14/16 03/30/18 Rx Multivitamins, Thera [Multivitamin 1 tab PO DAILY@1200 #30 tab 11/14/16 Rx (formulary)] Carbidopa-Levodopa 25-100 mg 1 tab PO BID 03/30/18 03/30/18 History [Sinemet 25-100 mg] FLUoxetine HCL [PROzac] 20 mg PO DAILY 03/30/18 03/30/18 History Latanoprost [Xalatan 0.005%] 1 drop BOTH EYES HS 03/30/18 03/30/18 History busPIRone HCL 15 mg PO BID 03/30/18 03/30/18 History Allergies Allergy/AdvReac Type Severity Reaction Status Date / Time Sulfa (Sulfonamide Allergy Unknown Rash/Hives Verified 03/30/18 07:33 Antibiotics) Physical Exam Vitals: Vital Signs Temp Pulse Resp BP Pulse Ox 04/01/18 11:06 97.4 F L 70 17 95/67 95 04/01/18 08:00 97 F L 66 17 122/57 96 04/01/18 07:58 66 18 04/01/18 04:00 66 18 123/62 95 03/31/18 23:36 98.0 F 74 18 101/50 96 03/31/18 20:00 99.3 F 68 18 104/61 93 L 03/31/18 15:00 97.2 F L 68 18 105/62 97 Intake and Output 03/31/18 04/01/18 04/01/18 22:59 06:59 14:59 Intake Total 410 200 Balance 410 200 Intake: IV 10 .9 10 Oral 400 200 Other: Voiding Method Toilet # Voids 1 Weight 72 kg General appearance: The patient is alert, oriented, in no acute distress. HET: Head is normocephalic and atraumatic. Pupils are equal and reactive. Oropharynx is clear without lesions. Neck: Supple without lymphadenopathy. Trachea midline. Heart: S1 S2. Regular rate and rhythm. Lungs: No crackles or wheezes are heard. No dullness to percussion. Abdomen: Soft, nontender, nondistended with bowel sounds. No peritoneal signs. No palpable organomegaly or masses. Extremities: Normal skin color and turgor. No cyanosis, rash, ulceration, clubbing, or edema. Radial and pedal pulses are 2/4 bilaterally. Neurological: No focal deficits. Strength and sensation are grossly intact. Results CBC & Chem 7: 04/02/18 07:06 04/02/18 07:06 Labs: Abnormal Lab Results - Last 24 Hours (Table) 04/01/18 04/01/18 Range/Units 06:16 06:16 WBC 12.2 H (3.8-10.6) k/uL Neutrophils # 8.6 H (1.3-7.7) k/uL BUN 19 H (7-17) mg/dL Glucose 114 H (74-99) mg/dL Assessment and Plan Assessment: 57-year-old female with epigastric pain and atypical chest pain. This could be on the basis of peptic ulcer disease, esophagitis or esophageal spasm. It is unlikely that we are dealing with gallbladder disease based on the CT findings and the normal liver enzymes. Plan: I agree with your current management. I discussed with the patient the possibility of initiating endoscopic workup was she is in the hospital or on the outpatient basis. I will discuss with you and follow with you with interest.
[2018-04-02] MEDS: LATANOPROST 0.005% OPHTH DROPS 2.5 ML BTL BOTH EYES SCH (20:43)
[2018-04-03] MEDS: LEVOTHYROXINE 50 MCG TAB PO SCH (06:27)
[2018-04-03 08:09] LABS: Basophils % (A) 0 %; Eosinophils # (A) 0.3 k/uL (0-0.7); Eosinophils % (A) 4 %; HCT 40.9 % (34.0-46.0); Lymphocytes # (A) 2.5 k/uL (1.0-4.8); Lymphocytes % (A) 28 %; MCH 28.6 pg (25.0-35.0); MCHC 31.7 g/dL (31.0-37.0); MCV 90.2 fL (80.0-100.0); Mean Platelet Volume 7.3; Monocytes # (A) 0.3 k/uL (0-1.0); Monocytes % (A) 4 %; Neutrophils # (A) 5.4 k/uL (1.3-7.7); Neutrophils % (A) 62 %; Platelet Count 366 k/uL (150-450); RBC 4.54 m/uL (3.80-5.40); RDW 13.1 % (11.5-15.5); WBC 8.7 k/uL (3.8-10.6)
[2018-04-03 08:39] LABS: Carbon Dioxide 27 mmol/L (22-30); Chloride 103 mmol/L (98-107); Glucose 109 mg/dL (74-99); Potassium 4.7 mmol/L (3.5-5.1); Sodium 140 mmol/L (137-145)
[2018-04-03] MEDS: METOPROLOL TARTRATE 25 MG TAB PO SCH ×2 (08:39→20:08)
[2018-04-03] MEDS: PANTOPRAZOLE 40 MG/10 ML VIAL IVP SCH (08:39)
[2018-04-03] MEDS: ATORVASTATIN 80 MG TAB PO SCH (08:39)
[2018-04-03] MEDS: FLUoxetine HCL 20 MG CAP PO SCH (08:39)
[2018-04-03] MEDS: CARBIDOPA-LEVODOPA 25-100 MG 1 EACH TAB PO SCH ×2 (08:39→20:04)
[2018-04-03] MEDS: ASPIRIN 325 MG TAB PO SCH (08:39)
[2018-04-03] MEDS: busPIRone HCl 5 MG TAB PO SCH ×2 (08:39→20:03)
[2018-04-03 08:40] LABS: Anion Gap 10 mmol/L; Blood Urea Nitrogen 24 mg/dL (7-17)
[2018-04-03] MEDS: MULTIVITAMINS, THERA 1 EACH TAB PO SCH (11:06)
[2018-04-03] MEDS: FOLIC ACID 1 MG TAB PO SCH (11:06)
[2018-04-03] MEDS: ACETAMINOPHEN TAB 325 MG TAB PO PRN (11:06)
--- NOTE | 2018-04-03 14:30 | P.PN ---
Subjective This is a pleasant is a pleasant 57 years old female with past medical history of GERD, hyperlipidemia, hypertension, memory impairment, coronary artery disease/myocardial infarction, neurological disease, thyroid disorder, Parkinson disease, celiac disease, lower GI bleed. Presents because of chest pain and abdominal pain. Patient woke up 2:00 in the morning with a bad dream and as well as she tripped trying to get back to sleep she started having abdominal pain and shortly after it was up to [facility] as per patient the abdominal pain is in the epigastric area and moving up to the central chest area also onto the right side. Patient states is achy was more severe earlier however with the treatment now is bearable at 1-2/10 in severity with no associated nausea vomiting. However she says her abdominal chest pain was central nonradiating now is completely resolved 0/10 as earlier associated with some dyspnea but now her breathing and is fine. Also patient complaining of from some back pain In the ED patient was found to have elevated d-dimer, CTPA shows no evidence of PE. As per bone plant supervisor patient recommended workup for abdominal pain spreading to the chest. Patient had CAT scan of the abdomen and pelvis with contrast which was unremarkable for acute process, see report 03/31/2018 Patient chest pain is completely resolved. No dyspnea. No dizziness or syncope. Patient abdominal pain is still there but this milder today mainly in the epigastrium versus right upper quadrant however on examination she have generalized tenderness and some abdominal distention. No jejunum bowel habits. No nausea vomiting. Patient tolerated diet well. Abdominal x-ray is ordered 04/01/2018 Patient chest pain is completely resolved. No dyspnea. No dizziness or syncope. Patient have some scattered cough without phlegm. Patient abdominal pain is still there but this milder today mainly in the epigastrium versus right upper quadrant however on examination she has more tenderness and some abdominal distention with guarding. No jejunum bowel habits. No nausea vomiting. Patient tolerated diet well. Abdominal x-ray suspicious for foreign body, repeat abdominal x-ray: No foreign body \ 04/02/2018 Patient remains to be chest pain-free. No dyspnea. Patient was noticed last night, blood per rectum when wiping, however she is not sure if she so some blood with her stool. Patient actually denies abdominal pain but on examination she has significant tenderness in the upper and lower abdomen but mainly in the epigastric area. No rebound tenderness no guarding. No fever. Repeat abdominal x-ray shows no foreign body. 04/02/2018 Patient is chest pain-free. No dyspnea. No more bleeding per rectum. Patient is still have epigastric and right upper quadrant tenderness. Patient is able to tolerate her diet. Patient didn't complain about diarrhea or constipation. No fever Objective - Vital Signs Vital signs: Vital Signs Temp 98.0 F 04/03/18 05:40 Pulse 60 04/03/18 08:00 Resp 16 04/03/18 08:00 BP 110/68 04/03/18 05:40 Pulse Ox 96 04/03/18 05:40 Intake & Output 04/02/18 04/03/18 04/03/18 18:59 06:59 18:59 Intake Total 730 240 Output Total 800 Balance -70 240 Weight 72.3 kg Intake: IV 10 Invasive Line 1 10 Oral 720 240 Output: Urine 800 Other: Voiding Method Toilet Toilet Toilet # Voids 2 2 - Exam GENERAL: The patient is alert and oriented x3, not in any acute distress. Well developed, well nourished. HEENT: Pupils are round and equally reacting to light. EOMI. No scleral icterus. No conjunctival pallor. Normocephalic, atraumatic. No pharyngeal erythema. No thyromegaly. CARDIOVASCULAR: S1 and S2 present. No murmurs, rubs, or gallops. PULMONARY: Chest is clear to auscultation, no wheezing or crackles. -ABDOMEN: Soft, , nondistended, normoactive bowel sounds. No palpable organomegaly. Epigastric and right upper quadrant tenderness, no rebound tenderness, positive for guarding MUSCULOSKELETAL: No joint swelling or deformity. EXTREMITIES: No cyanosis, clubbing, or pedal edema. NEUROLOGICAL: Gross neurological examination did not reveal any focal deficits. SKIN: No rashes. - Labs CBC & Chem 7: 04/03/18 07:32 04/03/18 07:32 Labs: Abnormal Lab Results - Last 24 Hours (Table) 04/03/18 Range/Units 07:32 BUN 24 H (7-17) mg/dL Glucose 109 H (74-99) mg/dL Assessment and Plan Plan: -Abdominal pain. RUQ versus epigastrium tenderness. Blood per rectum on wiping. Continue with pain management, CT of the abdomen and pelvis is reviewed. Will call GI consult. Follow-up hemoglobin. Check iron studies -mild leukocytosis, do UA: This unremarkable for infection -Chest pain, bone plant supervisor evaluated the patient who recommended 3 cardiac enzymes sets were negative. Continue with aspirin. Resolved -Parkinson disease continue with same and treatment -History of schizophrenia, patient denies hallucination, delusion. She doesn't have suicidal or homicidal ideation. Patient was asked to bring her home medication and she agrees. follow-up on mental health on discharge -h/o glaucoma , pt is asked to bring them from home and she agrees DVT prophylaxis she is already on heparin GI prophylaxis Protonix PT OT: ECF placement Prognosis is guarded
[2018-04-03] MEDS: LATANOPROST 0.005% OPHTH DROPS 2.5 ML BTL BOTH EYES SCH (20:06)
[2018-04-04] MEDS: HEPARIN SODIUM,PORCINE 5,000 UNIT/ML 1 ML VIAL SQ SCH ×2 (00:21→10:58)
[2018-04-04 07:54] LABS: Anion Gap 12 mmol/L; Blood Urea Nitrogen 27 mg/dL (7-17); Calcium 8.9 mg/dL (8.4-10.2); Carbon Dioxide 23 mmol/L (22-30); Chloride 103 mmol/L (98-107); Glucose 101 mg/dL (74-99); Potassium 4.8 mmol/L (3.5-5.1); Sodium 138 mmol/L (137-145)
[2018-04-04] MEDS ORDERED: PANTOPRAZOLE 40 MG TABLET PO SCH (09:00)
[2018-04-04 10:51] LABS: Basophils % (A) 0 %; Eosinophils # (A) 0.3 k/uL (0-0.7); Eosinophils % (A) 3 %; HCT 42.6 % (34.0-46.0); HGB 14.1 gm/dL (11.4-16.0); Lymphocytes # (A) 2.7 k/uL (1.0-4.8); Lymphocytes % (A) 31 %; MCH 30.2 pg (25.0-35.0); MCHC 33.1 g/dL (31.0-37.0); MCV 91.2 fL (80.0-100.0); Mean Platelet Volume 8.9; Monocytes # (A) 0.4 k/uL (0-1.0); Monocytes % (A) 5 %; Neutrophils # (A) 5.2 k/uL (1.3-7.7); Neutrophils % (A) 59 %; Platelet Count 312 k/uL (150-450); RBC 4.68 m/uL (3.80-5.40); RDW 13.7 % (11.5-15.5); WBC 8.8 k/uL (3.8-10.6)
[2018-04-04] MEDS: busPIRone HCl 5 MG TAB PO SCH (10:56)
[2018-04-04] MEDS: ATORVASTATIN 80 MG TAB PO SCH (10:56)
[2018-04-04] MEDS: LEVOTHYROXINE 50 MCG TAB PO SCH (10:56)
[2018-04-04] MEDS: ASPIRIN 325 MG TAB PO SCH (10:56)
[2018-04-04] MEDS: FLUoxetine HCL 20 MG CAP PO SCH (10:57)
[2018-04-04] MEDS: CARBIDOPA-LEVODOPA 25-100 MG 1 EACH TAB PO SCH (10:57)
[2018-04-04] MEDS: METOPROLOL TARTRATE 25 MG TAB PO SCH (10:58)
[2018-04-04] MEDS: FOLIC ACID 1 MG TAB PO SCH (12:35)
[2018-04-04] MEDS: MULTIVITAMINS, THERA 1 EACH TAB PO SCH (12:35)
[2018-04-04 15:27] VITALS: BP 114/55; PULSE 60; RESP 16; TEMP 97.3
--- NOTE | 2018-04-04 22:45 | P.DS ---
Providers Date of admission: 03/30/18 06:51 Attending physician: Elza Garcia Consults: 03/30/18 06:50 Consult Physician Urgent Consulting Provider: Florian Cardona Consult Reason/Comments: cp Do you want consulting provider notified?: Yes Primary care physician: [facility] Course: This is a pleasant is a pleasant 57 years old female with past medical history of GERD, hyperlipidemia, hypertension, memory impairment, coronary artery disease/myocardial infarction, neurological disease, thyroid disorder, Parkinson disease, celiac disease, lower GI bleed. Presents because of chest pain and abdominal pain. Patient woke up 2:00 in the morning with a bad dream and as well as she tripped trying to get back to sleep she started having abdominal pain and shortly after it was up to Her chest as per patient the abdominal pain is in the epigastric area and moving up to the central chest area also onto the right side. Patient states is achy was more severe earlier however with the treatment now is bearable at 1-2/10 in severity with no associated nausea vomiting. However she says her abdominal chest pain was central nonradiating now is completely resolved 0/10 as earlier associated with some dyspnea but now her breathing and is fine. Also patient complaining of from some back pain In the ED patient was found to have elevated d-dimer, CTPA shows no evidence of PE. As per geotechnical department manager patient recommended workup for abdominal pain spreading to the chest. Patient had CAT scan of the abdomen and pelvis with contrast which was unremarkable for acute process, see report. Patient was evaluated by GI team and the recommended workup as an outpatient. However on the day of discharge patient abdominal pain completely resolved. When I asked the patient where you puts your pain between 0 and 10 she told me "it's 0". Patient's with no nausea vomiting. Bowel habit is at baseline and patient was eager to be discharged. Patient also denies any hallucination, delusions or suicidal ideation. PT/OT evaluated the patient and recommended ECF. 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 Patient was cleared for discharge by cardiology and GI teams. Patient was found stable and can be discharged however she needs follow-up as an outpatient. Appointments were made with the GI and the PCP. Discharge exam Gen: patient is a AAOx3, no distress CVS: S1-S2, RRR, no murmur Lungs: B/L CTA, no wheezing Abdomen: soft, no distention, no tenderness, positive bowel sounds Extremity: no leg edema or induration Time spent more than 35 minutes Patient Condition at Discharge: Undetermined Plan - Discharge Summary Discharge Rx Participant: No New Discharge Prescriptions: New Aspirin 325 mg PO DAILY #30 tab Atorvastatin [Lipitor] 80 mg PO DAILY #30 tab Metoprolol Tartrate [Lopressor] 25 mg PO BID #60 tab Pantoprazole [Protonix] 40 mg PO DAILY #30 tablet.dr Continue Acetaminophen Tab [Tylenol] 650 mg PO BID PRN PRN Reason: Pain Folic Acid 1 mg PO DAILY@1200 #30 tab Levothyroxine Sodium [Synthroid] 50 mcg PO DAILY #30 tab Loratadine 10 mg PO DAILY #30 tablet Multivitamins, Thera [Multivitamin (formulary)] 1 tab PO DAILY@1200 #30 tab busPIRone HCL 15 mg PO BID Latanoprost [Xalatan 0.005%] 1 drop BOTH EYES HS FLUoxetine HCL [PROzac] 20 mg PO DAILY Carbidopa-Levodopa 25-100 mg [Sinemet 25-100 mg] 1 tab PO BID Discharge Medication List Acetaminophen Tab [Tylenol] 650 mg PO BID PRN 06/01/16 [History] Folic Acid 1 mg PO DAILY@1200 #30 tab 11/14/16 [Rx] Levothyroxine Sodium [Synthroid] 50 mcg PO DAILY #30 tab 11/14/16 [Rx] Loratadine 10 mg PO DAILY #30 tablet 11/14/16 [Rx] Multivitamins, Thera [Multivitamin (formulary)] 1 tab PO DAILY@1200 #30 tab 03/25 [Rx] Carbidopa-Levodopa 25-100 mg [Sinemet 25-100 mg] 1 tab PO BID 03/30/18 [History] FLUoxetine HCL [PROzac] 20 mg PO DAILY 03/30/18 [History] Latanoprost [Xalatan 0.005%] 1 drop BOTH EYES HS 03/30/18 [History] busPIRone HCL 15 mg PO BID 03/30/18 [History] Aspirin 325 mg PO DAILY #30 tab 04/04/18 [Rx] Atorvastatin [Lipitor] 80 mg PO DAILY #30 tab 04/04/18 [Rx] Metoprolol Tartrate [Lopressor] 25 mg PO BID #60 tab 04/04/18 [Rx] Pantoprazole [Protonix] 40 mg PO DAILY #30 tablet. 04/04/18 [Rx] Follow up Appointment(s)/Referral(s): Anthony Navarro MD [STAFF PHYSICIAN] - 04/17/18 4:00 pm Cindy Gardner MD [Primary Care Provider] - 04/06/18 9:00 am Patient Instructions/Handouts: Chest Pain (ED) Activity/Diet/Wound Care/Special Instructions: Fax discharge med list to [facility], Attn: ACT team - fax # ACT team may provide transportation at discharge - call [phone] and ask for ACT team Discharge Disposition: OTHER INSTITUTION NOT DEFINED
== END 2018-04-04 16:52 | disposition other institution (70) ==
LOC: EC 04:58 → 6SEL 06:51 → 5MS5E 04-02 18:12
PROVIDERS: ADMIT Hospitalist; ATTEND Hospitalist
DX: R07.89 Other chest pain (principal); R10.11 Right upper quadrant pain; R10.13 Epigastric pain; M54.9 Dorsalgia, unspecified; E78.5 Hyperlipidemia, unspecified; I10 Essential (primary) hypertension; R41.3 Other amnesia; I25.10 Atherosclerotic heart disease of native coronary artery without angina pectoris; K21.9 Gastro-esophageal reflux disease without esophagitis; I25.2 Old myocardial infarction; K90.0 Celiac disease; G20 Parkinson's disease; Z87.19 Personal history of other diseases of the digestive system; R06.00 Dyspnea, unspecified; R79.89 Other specified abnormal findings of blood chemistry; R14.0 Abdominal distension (gaseous); R05 Cough; D72.829 Elevated white blood cell count, unspecified; K62.5 Hemorrhage of anus and rectum; E03.9 Hypothyroidism, unspecified; Z87.440 Personal history of urinary (tract) infections; D64.9 Anemia, unspecified; H40.9 Unspecified glaucoma; F41.0 Panic disorder [episodic paroxysmal anxiety]; F41.9 Anxiety disorder, unspecified; F32.9 Major depressive disorder, single episode, unspecified; F20.9 Schizophrenia, unspecified; Z83.1 Family history of other infectious and parasitic diseases; Z83.3 Family history of diabetes mellitus; Z82.3 Family history of stroke; Z79.899 Other long term (current) drug therapy; Z79.890 Hormone replacement therapy; Z88.2 Allergy status to sulfonamides; E66.9 Obesity, unspecified; Z68.33 Body mass index [BMI] 33.0-33.9, adult
CPT/HCPCS: 99291; 96375 ×3; 96376 ×6; 96365 ×2; 96366 ×2; 96372; 36415; 93005; 97116; 97162; 97166; 85379; 80061; 80053; 80048 ×4; 82728; 82550; 82553; 83540; 83550; 83690; 83735; 84484; 85025 ×5; 85049; 85610; 85730; 82272; 81001; 71046; 74018; 71275; 74177; G0378 ×6; J1644 ×3; J2270; C9113 ×5; Q9967

== ENCOUNTER 2018-07-06 16:12 | Emergency (ER) | payer OTHER ==
[2018-07-06 16:25] VITALS: RESP 18
[2018-07-06] MEDS ORDERED: IPRATROPIUM-ALBUTEROL 3 ML NEB INHALATION STA (17:14)
--- NOTE | 2018-07-06 17:14 | ED ---
General Adult HPI - General Chief complaint: Upper Respiratory Infection Stated complaint: Cold Time Seen by Provider: 07/06/18 16:37 Source: patient, RN notes reviewed Mode of arrival: ambulatory Limitations: no limitations - History of Present Illness Initial comments: 57-year-old female presents to the emergency department for a chief complaint of cough 2 days. Patient states the cough is productive. Patient denies fevers or chills at home. Patient denies any difficulty breathing but does states she is nasally congested. Patient denies a history of asthma or smoking history. No history of COPD. Patient denies any sore throat. Patient denies any ear pain. Patient denies any nausea or vomiting. Patient has no other complaints at this time including shortness of breath, chest pain, abdominal pain, nausea or vomiting, headache, or visual changes. - Related Data Home Medications Medication Instructions Recorded Confirmed Acetaminophen Tab [Tylenol] 650 mg PO BID PRN 06/01/16 07/06/18 Carbidopa-Levodopa 25-100 mg 1 tab PO BID 03/30/18 07/06/18 [Sinemet 25-100 mg] FLUoxetine HCL [PROzac] 20 mg PO DAILY 03/30/18 07/06/18 Latanoprost [Xalatan 0.005%] 1 drop BOTH EYES HS 03/30/18 07/06/18 busPIRone HCL 15 mg PO BID 03/30/18 07/06/18 Folic Acid 1 mg PO DAILY 07/06/18 07/06/18 Metoprolol Tartrate [Lopressor] 25 mg PO DAILY 07/06/18 07/06/18 Multivitamins, Thera [Multivitamin 1 tab PO DAILY 07/06/18 07/06/18 (formulary)] Previous Rx's Medication Instructions Recorded Levothyroxine Sodium [Synthroid] 50 mcg PO DAILY #30 tab 11/14/16 Loratadine 10 mg PO DAILY #30 tablet 11/14/16 Atorvastatin [Lipitor] 80 mg PO DAILY #30 tab 04/04/18 Pantoprazole [Protonix] 40 mg PO DAILY #30 tablet.dr 04/04/18 Benzonatate [Tessalon Perles] 200 mg PO Q8H PRN #15 capsule 07/06/18 guaiFENesin [Mucinex] 600 mg PO Q12HR #20 tablet.er 07/06/18 predniSONE 50 mg PO DAILY #5 tablet 07/06/18 Allergies Allergy/AdvReac Type Severity Reaction Status Date / Time Sulfa (Sulfonamide Allergy Unknown Rash/Hives Verified 07/06/18 16:37 Antibiotics) Review of Systems ROS Statement: Those systems with pertinent positive or pertinent negative responses have been documented in the HPI. ROS Other: All systems not noted in ROS Statement are negative. Past Medical History Past Medical History: Eye Disorder, GERD/Reflux, Hyperlipidemia, Hypertension, Memory Impairment, Myocardial Infarction ([place]), Neurologic Disorder, Thyroid Disorder Additional Past Medical History / Comment(s): Bilateral glaucoma, possible [place] , parkinson's disease, celiac's disease, hypothyroid, UTIs, UTI with sepsis , lower GI bleed, anemia. Last Myocardial Infarction Date:: Possible [place] 2012 History of Any Multi-Drug Resistant Organisms: None Reported Past Surgical History: Section, Tubal Ligation Additional Past Surgical History / Comment(s): Bilateral cataract removal and lens implant, colonoscopy Past Anesthesia/Blood Transfusion Reactions: No Reported Reaction Past Psychological History: Anxiety, Depression, Panic Disorder, Schizophrenia Smoking Status: Never smoker - Past Family History Father Family Medical History: CVA/TIA, Diabetes Mellitus Additional Family Medical History / Comment(s): Father is alive and his 70s Mother Family Medical History: No Reported History Brother(s) Additional Family Medical History / Comment(s): She has 2 brothers. One at age 43 from [facility] and 1 is alive with no major medical problems. Patient has no sisters. General Exam Limitations: no limitations General appearance: alert, in no apparent distress Head exam: Present: atraumatic, normocephalic, normal inspection Eye exam: Present: normal appearance, PERRL, EOMI. Absent: scleral icterus, conjunctival injection, periorbital swelling ENT exam: Present: normal oropharynx (Uvula midline, no tonsillar exudates noted ), TM's normal bilaterally (Nonerythematous, nonbulging), normal external ear exam Neck exam: Present: normal inspection, full ROM. Absent: tenderness, meningismus, lymphadenopathy, thyromegaly Respiratory exam: Present: normal lung sounds bilaterally, wheezes (mild wheezing noted bilat). Absent: respiratory distress, rales, rhonchi, stridor Cardiovascular Exam: Present: regular rate, normal rhythm, normal heart sounds. Absent: systolic murmur, diastolic murmur, rubs, gallop, clicks GI/Abdominal exam: Present: soft, normal bowel sounds. Absent: distended, tenderness, guarding, rebound, rigid Extremities exam: Present: full ROM (Moving all extremities without difficulty) Neurological exam: Present: alert, oriented X3, CN II-XII intact Psychiatric exam: Present: normal affect, normal mood Course Vital Signs 07/06/18 07/06/18 07/06/18 16:21 17:38 17:48 Temperature 99.2 F Pulse Rate 83 86 86 Respiratory 18 Rate Blood Pressure 104/74 O2 Sat by Pulse 96 Oximetry 07/06/18 18:49 Temperature 101.1 F H Pulse Rate 94 Respiratory 18 Rate Blood Pressure 161/83 O2 Sat by Pulse 97 Oximetry Medical Decision Making - Medical Decision Making 57 her old female to the emergency department for chief complaint of cough 2 days. Patient is coughing up phlegm and is nasally congested. No fevers or chills here or at home. On exam patient has mild wheezing noted in the lower lung herrera bilaterally. Otherwise clear to auscultation. Patient does have visible nasal congestion. X-ray showed no pneumonia as or acute cardiopulmonary process. At this time, as patient has had symptoms for only 2 days without fevers or chills and chest x-ray is negative for pneumonia she will be discharged home on supportive care. Patient was given a breathing treatment here in the emergency department. Patient given steroids, Tessalon Perles, and Mucinex. She will follow up with primary care in 1-2 days. She will return if she has any worsening symptoms. Patient did have a fever on discharge and was given Tylenol. Patient still is well-appearing and at this time outpatient supportive treatment for upper respiratory infection is appropriate. Disposition Clinical Impression: Upper respiratory infection Disposition: HOME SELF-CARE Condition: Good Instructions: Upper Respiratory Infection (ED) Additional Instructions: Please take prescription as directed. Drink plenty of fluids to stay hydrated. Return to ED if you have any worsening symptoms or shortness of breath. Prescriptions: Benzonatate [Tessalon Perles] 200 mg PO Q8H PRN #15 capsule PRN Reason: Cough guaiFENesin [Mucinex] 600 mg PO Q12HR #20 tablet.er predniSONE 50 mg PO DAILY #5 tablet Is patient prescribed a controlled substance at d/c from ED?: No Referrals: Cindy Gardner MD [Primary Care Provider] - 1-2 days Time of Disposition: 18:43
--- NOTE | 2018-07-06 17:36 | XR ---
EXAMINATION TYPE: Normal chest. No change. DATE OF EXAM: 07/06/2018 COMPARISON: 03/30/2018 HISTORY: Cough TECHNIQUE: Frontal and lateral views of the chest are obtained. FINDINGS: There is no focal air space opacity, pleural effusion, or pneumothorax seen. The cardiac silhouette size is within normal limits. The osseous structures are intact. IMPRESSION: No acute cardiopulmonary process. Heart and mediastinum are normal. Lungs are clear. Diaphragm is normal. Bony thorax is normal.
[2018-07-06] MEDS ORDERED: ACETAMINOPHEN TAB 500 MG TAB PO STA (18:45)
[2018-07-06] MEDS ORDERED: predniSONE 50 MG TAB PO STA (18:46)
[2018-07-06 18:49] VITALS: BP 161/83; PULSE 94; TEMP 101.1
== END 2018-07-06 18:56 | disposition home or self-care (01) ==
LOC: EC 16:12
DX: J06.9 Acute upper respiratory infection, unspecified (principal); I10 Essential (primary) hypertension; I25.2 Old myocardial infarction; F20.9 Schizophrenia, unspecified; F32.9 Major depressive disorder, single episode, unspecified; F41.0 Panic disorder [episodic paroxysmal anxiety]; Z79.899 Other long term (current) drug therapy; Z88.2 Allergy status to sulfonamides
CPT/HCPCS: 71046; 94640; 99283

== ENCOUNTER 2018-12-25 17:07 | Emergency (ER) | payer OTHER ==
[2018-12-25 17:35] VITALS: TEMP 99.4
[2018-12-25] MEDS ORDERED: ONDANSETRON 4 MG/2 ML VIAL IVP STA (18:12)
[2018-12-25] MEDS ORDERED: SODIUM CHLORIDE 0.9% 500 ML 500 ML IV STA (18:12)
[2018-12-25 18:51] LABS: Basophils % (A) 0 %; Eosinophils # (A) 0.2 k/uL (0-0.7); Eosinophils % (A) 2 %; HCT 42.7 % (34.0-46.0); HGB 13.8 gm/dL (11.4-16.0); Lymphocytes # (A) 0.6 k/uL (1.0-4.8); Lymphocytes % (A) 7 %; MCHC 32.4 g/dL (31.0-37.0); MCV 89.3 fL (80.0-100.0); Mean Platelet Volume 7.3; Monocytes # (A) 0.2 k/uL (0-1.0); Monocytes % (A) 2 %; Neutrophils # (A) 8.5 k/uL (1.3-7.7); Neutrophils % (A) 89 %; Platelet Count 341 k/uL (150-450); RBC 4.78 m/uL (3.80-5.40); RDW 13.7 % (11.5-15.5); WBC 9.5 k/uL (3.8-10.6)
[2018-12-25 18:54] LABS: Appearance,Urine Clear (Clear); Bacteria,Urine Rare /hpf; Bilirubin,Urine Negative (Negative); Blood,Urine Negative (Negative); Color,Urine Yellow; Glucose,Urine (UA) Negative (Negative); Hyaline Casts,Urine 3 /lpf (0-2); Ketones,Urine Trace (Negative); Leukocyte Esterase,Urine Negative (Negative); Mucus,Urine Many /hpf; Nitrite,Urine Negative (Negative); PH, Urine 5.5 (5.0-8.0); Protein,Urine 1+ (Negative); RBC,Urine 4 /hpf (0-5); Specific Gravity,Urine 1.035 (1.001-1.035); Squamous Epithelial Cell,Urine 3 /hpf (0-4); WBC,Urine 1 /hpf (0-5)
--- NOTE | 2018-12-25 18:57 | ED ---
Chest Pain HPI - General Source: patient Mode of arrival: ambulatory Limitations: no limitations <Colette Moctezuma - Last Filed: 12/25/18 22:53> <Brenda Hanson - Last Filed: 12/26/18 22:31> - General Chief Complaint: Chest Pain Stated Complaint: SIB/Vomiting Time Seen by Provider: 12/25/18 18:03 - History of Present Illness Initial Comments: 58-year-old female patient with past medical history significant for cognitive delay, myocardial infarction, hypertension, hyperlipidemia presents to the emergency department today for complaints of nausea, diarrhea, and chest pain. Patient states that this morning she had some nausea and has been able to eat. Patient states she did have a couple episodes of diarrhea prior to coming in. Patient states a waiting in the waiting room around 1720 she started to have an aching pain to the substernal chest. Patient states that she was also having bilateral arm pain. Patient states that she is having some shortness of breath with this. Denies any cough or congestion. Denies any fevers or chills. States that she is having some mild upper abdominal pain with this. Denies any radiation through to her back. Patient denies any recent rash, constipation, back pain, numbness, tingling, dizziness, weakness, hematuria, dysuria, urinary urgency, urinary frequency, headache, visual changes, or any other complaints. (Colette Moctezuma) - Related Data Home Medications Medication Instructions Recorded Confirmed Acetaminophen Tab [Tylenol] 650 mg PO BID PRN 06/01/16 12/25/18 FLUoxetine HCL [PROzac] 20 mg PO DAILY 03/30/18 12/25/18 Latanoprost [Xalatan 0.005%] 1 drop BOTH EYES HS 03/30/18 12/25/18 busPIRone HCL 15 mg PO BID 03/30/18 12/25/18 Folic Acid 1 mg PO DAILY 07/06/18 12/25/18 Metoprolol Tartrate [Lopressor] 25 mg PO DAILY 07/06/18 12/25/18 Multivitamins, Thera [Multivitamin 1 tab PO DAILY 07/06/18 12/25/18 (formulary)] Dicyclomine [Bentyl] 20 mg PO BID 11/02/18 12/25/18 Previous Rx's Medication Instructions Recorded Levothyroxine Sodium [Synthroid] 50 mcg PO DAILY #30 tab 11/14/16 Loratadine 10 mg PO DAILY #30 tablet 11/14/16 Atorvastatin [Lipitor] 80 mg PO DAILY #30 tab 04/04/18 Pantoprazole [Protonix] 40 mg PO DAILY #30 tablet. 04/04/18 Ondansetron [Zofran ODT] 4 mg PO Q8HR PRN #10 tab 12/25/18 Allergies Allergy/AdvReac Type Severity Reaction Status Date / Time Sulfa (Sulfonamide Allergy Unknown Rash/Hives Verified 12/25/18 18:51 Antibiotics) Review of Systems ROS Other: All systems not noted in ROS Statement are negative. <Colette Moctezuma - Last Filed: 12/25/18 22:53> ROS Other: All systems not noted in ROS Statement are negative. <Brenda Hanson - Last Filed: 12/26/18 22:31> ROS Statement: Those systems with pertinent positive or pertinent negative responses have been documented in the HPI. EKG Findings - EKG Comments: EKG Findings:: EKG obtained at 1818 shows normal sinus rhythm with a ventricular rate of 76, PA interval 128, QRS duration 74, QT 378, QTC 425. No evidence of ST elevation or depression. <Colette Moctezuma - Last Filed: 12/25/18 22:53> Past Medical History Past Medical History: Eye Disorder, GERD/Reflux, Hyperlipidemia, Hypertension, Memory Impairment, Myocardial Infarction ([place]), Neurologic Disorder, Thyroid Disorder Additional Past Medical History / Comment(s): Bilateral glaucoma, possible [place] 09/12/13, parkinson's disease, celiac disease, hx. UTIs, UTI with sepsis, lower GI bleed, anemia. Last Myocardial Infarction Date:: Possible [place] 2012 History of Any Multi-Drug Resistant Organisms: None Reported Past Surgical History: Section, Tubal Ligation Additional Past Surgical History / Comment(s): Bilateral cataract removal and lens implant, colonoscopy Past Anesthesia/Blood Transfusion Reactions: No Reported Reaction Past Psychological History: Panic Disorder, PTSD, Schizoaffective Disorder, Schizophrenia Smoking Status: Never smoker Past Alcohol Use History: None Reported Past Drug Use History: None Reported - Past Family History Father Family Medical History: CVA/TIA, Diabetes Mellitus Additional Family Medical History / Comment(s): Father is alive and his 70s Mother Family Medical History: No Reported History Brother(s) Additional Family Medical History / Comment(s): She has 2 brothers. One at age 43 from [place] and 1 is alive with no major medical problems. Patient has no sisters. <Colette Moctezuma M - Last Filed: 12/25/18 22:53> General Exam Limitations: no limitations General appearance: alert, in no apparent distress, other (Physical well- developed, well-nourished adult female patient in no acute distress. Vital signs upon presentation are temperature 99.4F, pulse 85, respirations 18, blood pressure 124/70, pulse ox 95% on room air.) Eye exam: Present: normal appearance, PERRL, EOMI. Absent: scleral icterus, conjunctival injection, periorbital swelling Respiratory exam: Present: normal lung sounds bilaterally. Absent: respiratory distress, wheezes, rales, rhonchi, stridor Cardiovascular Exam: Present: regular rate, normal rhythm, normal heart sounds. Absent: systolic murmur, diastolic murmur, rubs, gallop, clicks GI/Abdominal exam: Present: soft, tenderness (Midepigastric tenderness), normal bowel sounds. Absent: distended, guarding, rebound, rigid Neurological exam: Present: alert, oriented X3, CN II-XII intact Psychiatric exam: Present: normal affect, normal mood Skin exam: Present: warm, dry, intact, normal color. Absent: rash <Colette Moctezuma M - Last Filed: 12/25/18 22:53> Course Vital Signs 12/25/18 12/25/18 12/25/18 17:32 18:20 18:30 Temperature 99.4 F Pulse Rate 85 74 Respiratory 18 15 Rate Blood Pressure 124/70 133/73 O2 Sat by Pulse 95 97 97 Oximetry 12/25/18 12/25/18 12/25/18 18:40 18:50 19:00 Temperature Pulse Rate 77 74 Respiratory 20 17 Rate Blood Pressure 130/73 122/67 122/67 O2 Sat by Pulse 95 94 L Oximetry 12/25/18 12/25/18 12/25/18 19:20 19:30 19:40 Temperature Pulse Rate 76 73 75 Respiratory 15 18 16 Rate Blood Pressure O2 Sat by Pulse 95 94 L 94 L Oximetry 12/25/18 22:52 Temperature Pulse Rate 77 Respiratory 16 Rate Blood Pressure 124/65 O2 Sat by Pulse 95 Oximetry Chest Pain MDM <Colette Moctezuma - Last Filed: 12/25/18 22:53> <Brenda Hanson - Last Filed: 12/26/18 22:31> - [facility] RAD[facility]OLOG[facility]: Two-view x-ray of the chest is obtained. Report was reviewed in its entirety. Impression by Dr. Kelle Belcher shows no definite acute process. Ultrasound of the right upper quadrant was obtained. Report was reviewed in its entirety. Impression by Dr. Kelle Belcher shows no acute process. MDM: 58-year-old female patient presents to emergency department today for evaluation of vomiting, diarrhea, with chest pain starting while in the waiting room. Physical examination did reveal some midepigastric tenderness. Labs reviewed and did reveal mildly elevated ALT and alk phos. Remainder of labs are unremarkable. Initial troponin was negative. Did ultrasound the gallbladder which was normal. We did repeat troponin after 3 hours emergency department the second troponin was negative as well. The patient symptoms are more related to a viral gastroenteritis with chest pain resulted from vomiting. We will discharge patient home with prescription for Zofran. She is instructed to follow-up with her primary care physician for recheck in 1-2 days. Return parameters were discussed in detail. She verbalizes understanding and agrees with this plan. (Colette Moctezuma) I was available for consultation in the emergency department. The history and physical exam were done by the midlevel provider. I was consulted for this patient's care. I reviewed the case with the midlevel provider and based on their presentation of the patient, I agree with the assessment, medical decision making and plan of care as documented. (Brenda Hanson) Disposition Is patient prescribed a controlled substance at d/c from ED?: No Time of Disposition: 22:15 <Colette Moctezuma - Last Filed: 12/25/18 22:53> <Brenda Hanson - Last Filed: 12/26/18 22:31> Clinical Impression: Gastroenteritis, Chest pain Disposition: HOME SELF-CARE Condition: Good Instructions (If sedation given, give patient instructions): Chest Pain (ED), Gastroenteritis (ED) Additional Instructions: Take medications as directed. Start with clear liquid diet and advance as tolerated. Follow-up through primary care physician for recheck in 1-2 days. Return to the emergency department immediately for any new, worsening, or concerning symptoms. Prescriptions: Ondansetron [Zofran ODT] 4 mg PO Q8HR PRN #10 tab PRN Reason: Nausea Referrals: Nonstaff,Physician [REFERRING] - 1-2 days
[2018-12-25 18:59] LABS: ALT 59 U/L (9-52); AST 33 U/L (14-36); Albumin 4.3 g/dL (3.5-5.0); Alkaline Phosphatase 141 U/L (38-126); Anion Gap 10 mmol/L; Blood Urea Nitrogen 28 mg/dL (7-17); Calcium 9.4 mg/dL (8.4-10.2); Carbon Dioxide 26 mmol/L (22-30); Chloride 101 mmol/L (98-107); Glucose 136 mg/dL (74-99); Lipase 55 U/L (23-300); Magnesium 1.6 mg/dL (1.6-2.3); Potassium 4.3 mmol/L (3.5-5.1); Sodium 137 mmol/L (137-145); Total Bilirubin 0.9 mg/dL (0.2-1.3); Total Protein 7.3 g/dL (6.3-8.2)
[2018-12-25 19:00] LABS: INR 0.9 (<1.2); Partial Thromboplastin Time 23.6 sec (22.0-30.0); Prothrombin Time 9.5 sec (9.0-12.0)
--- NOTE | 2018-12-25 19:26 | XR ---
EXAMINATION: XR chest 2V DATE AND TIME: 12/25/2018 6:54 PM CLINICAL INDICATION: PHH; Chest Pain TECHNIQUE: AP and lateral views COMPARISON: 07/06/2018 radiographs FINDINGS: The lungs are clear. The pleural spaces are negative. The cardiac silhouette is enlarged to a mild degree, more conspicuous than the prior study. Some of t his appearance may be projectional. The skeletal structures and soft tissues are negative for acute findings. IMPRESSION: NO DEFINITE ACUTE PROCESS.
[2018-12-25 19:45] VITALS: RESP 16
--- NOTE | 2018-12-25 20:42 | US ---
EXAMINATION TYPE: US abdomen limited DATE OF EXAM: 12/25/2018 COMPARISON: NONE CLINICAL HISTORY: Pain. EXAM MEASUREMENTS: Liver Length: 21.3 cm Gallbladder Wall: 0.3 cm CBD: 0.4 cm Right Kidney: 9.2 x 4.0 x 3.3 cm Pancreas: Echogenic Liver: Increased attenuation hepatomegaly. Gallbladder: wnl Evidence for sonographic Ventura's sign: No CBD: wnl Right Kidney: wnl IMPRESSION: NO ACUTE PROCESS.
[2018-12-25 22:55] VITALS: BP 124/65; PULSE 77
== END 2018-12-25 22:55 | disposition home or self-care (01) ==
LOC: EC 17:07
DX: K52.9 Noninfective gastroenteritis and colitis, unspecified (principal); R07.9 Chest pain, unspecified; F41.0 Panic disorder [episodic paroxysmal anxiety]; F25.9 Schizoaffective disorder, unspecified; I10 Essential (primary) hypertension; I25.2 Old myocardial infarction; Z79.899 Other long term (current) drug therapy; Z88.2 Allergy status to sulfonamides
CPT/HCPCS: 36415; 93005; 80053; 83690; 83735; 84484; 85025; 85610; 85730; 81001; 71046; 76705; 99285; 96374; 96361 ×3; J2405

== ENCOUNTER 2019-02-01 19:13 | Emergency (ER) | payer OTHER ==
[2019-02-01 19:26] VITALS: BP 139/76; PULSE 82; RESP 20; TEMP 98.4
[2019-02-01] MEDS ORDERED: IBUPROFEN 600 MG TAB PO STA (19:45)
--- NOTE | 2019-02-01 19:50 | ED ---
Back Pain HPI - General Chief Complaint: Back Pain/Injury Stated Complaint: Back Pain Time Seen by Provider: 02/01/19 19:27 Source: patient Limitations: no limitations - History of Present Illness Initial Comments: 58-year-old female presenting for right-sided neck pain. Patient states that she woke up this morning and noticed that when she moved her head to the right she is pain in the right-sided neck and the middle back. She states when she does not move she does not have significant pain she states that is only with movement of the neck. Patient was unsure she needed to take any pain medications and presents emergency department for evaluation. Patient states she is unable to get in with her primary care provider. Patient denies any chest pain, dyspnea or dyspnea on exertion fever chills cough night sweats numbness tingling or loss sensation. Patient states the pain is sharp when she rotates her head otherwise unnoticable. Remaining ROS (-). Upon arrival pt appears well no signs of acute distress. Holding head to the left. VS within acceptable limits. - Related Data Home Medications Medication Instructions Recorded Confirmed Acetaminophen Tab [Tylenol] 650 mg PO BID PRN 06/01/16 12/25/18 FLUoxetine HCL [PROzac] 20 mg PO DAILY 03/30/18 12/25/18 Latanoprost [Xalatan 0.005%] 1 drop BOTH EYES HS 03/30/18 12/25/18 busPIRone HCL 15 mg PO BID 03/30/18 12/25/18 Folic Acid 1 mg PO DAILY 07/06/18 12/25/18 Metoprolol Tartrate [Lopressor] 25 mg PO DAILY 07/06/18 12/25/18 Multivitamins, Thera [Multivitamin 1 tab PO DAILY 07/06/18 12/25/18 (formulary)] Dicyclomine [Bentyl] 20 mg PO BID 11/02/18 12/25/18 Previous Rx's Medication Instructions Recorded Levothyroxine Sodium [Synthroid] 50 mcg PO DAILY #30 tab 11/14/16 Loratadine 10 mg PO DAILY #30 tablet 11/14/16 Atorvastatin [Lipitor] 80 mg PO DAILY #30 tab 04/04/18 Pantoprazole [Protonix] 40 mg PO DAILY #30 tablet. 04/04/18 Ondansetron [Zofran ODT] 4 mg PO Q8HR PRN #10 tab 12/25/18 Ibuprofen 600 mg PO Q8H PRN 7 Days #21 tablet 02/01/19 Allergies Allergy/AdvReac Type Severity Reaction Status Date / Time Sulfa (Sulfonamide Allergy Unknown Rash/Hives Verified 02/01/19 19:26 Antibiotics) Review of Systems ROS Statement: Those systems with pertinent positive or pertinent negative responses have been documented in the HPI. ROS Other: All systems not noted in ROS Statement are negative. Past Medical History Past Medical History: Eye Disorder, GERD/Reflux, Hyperlipidemia, Hypertension, Memory Impairment, Myocardial Infarction ([place]), Neurologic Disorder, Thyroid Disorder Additional Past Medical History / Comment(s): Bilateral glaucoma, possible [place] 09/12/13, parkinson's disease, celiac disease, hx. UTIs, UTI with sepsis, lower GI bleed, anemia. Last Myocardial Infarction Date:: Possible [place] 2012 History of Any Multi-Drug Resistant Organisms: None Reported Past Surgical History: Section, Tubal Ligation Additional Past Surgical History / Comment(s): Bilateral cataract removal and lens implant, colonoscopy Past Anesthesia/Blood Transfusion Reactions: No Reported Reaction Past Psychological History: Panic Disorder, PTSD, Schizoaffective Disorder, Schizophrenia Smoking Status: Never smoker Past Alcohol Use History: None Reported Past Drug Use History: None Reported - Past Family History Father Family Medical History: CVA/TIA, Diabetes Mellitus Additional Family Medical History / Comment(s): Father is alive and his 70s Mother Family Medical History: No Reported History Brother(s) Additional Family Medical History / Comment(s): She has 2 brothers. One at age 43 from [facility] and 1 is alive with no major medical problems. Patient has no sisters. General Exam - General Exam Comments Initial Comments: General: The patient is awake and alert, in no distress, and does not appear acutely ill. Eye: Pupils are equal, round and reactive to light, extra-ocular movements are intact. No nystagmus. There is normal conjunctiva bilaterally. No signs of icterus. Ears, nose, mouth and throat: There are moist mucous membranes and no oral lesions. Neck: The neck is supple, there is no tenderness or JVD. Palpable muscle spasm of the right trapezius muscle. Pt complains of sharp pain with movement of head to the right. No midline or paravertbral tenderness to palpation of the cervical spine. Cardiovascular: There is a regular rate and rhythm. No murmur, rub or gallop is appreciated. Respiratory: Lungs are clear to auscultation, respirations are non-labored, breath sounds are equal. No wheezes, stridor, rales, or rhonchi. Gastrointestinal: Soft, non-distended, non-tender abdomen without masses or organomegaly noted. There is no rebound or guarding present. Musculoskeletal: Normal ROM, no tenderness. Strength 5/5. Sensation intact. Radial and DP pulses equal bilaterally 2+. Neurological: A&O x 3. CN II-XII intact, There are no obvious motor or sensory deficits. Coordination appears grossly intact. Speech is normal. Skin: Skin is warm and dry and no rashes or lesions are noted. No LE edema. Psychiatric: Cooperative, appropriate mood & affect, normal judgment. Limitations: no limitations Course Vital Signs 02/01/19 19:22 Temperature 98.4 F Pulse Rate 82 Respiratory 20 Rate Blood Pressure 139/76 O2 Sat by Pulse 96 Oximetry Medical Decision Making - Medical Decision Making 58-year-old female presenting for limitation range of motion of the neck to the right/right upper back pain. Pt states that she woke up with limitation of neck due to pain that it produced in the right upper back. Pt states no pain at rest but as soon as she moved her neck it causes a sharp pain. Pt states stated she didnt think she needed to come to the ER but couldnt get into her primary doctor. Patient appears well no additional complaints. ON exam there is palpable muscle spasms of the right trapezius muscle with range of motion of the neck to the right. This time feel this is muscles skeletal and very reproducible on exam. Possible developing torticollis, with obvious muscle spasm. Patient generally medication altered mentation. Pt has baseline developmental delays. Pt was discharged with instruction to apply heat to the area 20 minutes at time 3x a day and take NSAIDs. I discussed the case with him provider Dr. Ruelas who is agreeable with care plan and discharge. Disposition Clinical Impression: Muscle spasms of neck Disposition: HOME SELF-CARE Condition: Good Instructions (If sedation given, give patient instructions): Spasmodic Torticollis (ED), Muscle Spasm (ED) Additional Instructions: Please use medication as discussed. Please follow-up with family doctor in the next 2 days.. Please return to emergency room if the symptoms increase or worsen or for any other concerns. Prescriptions: Ibuprofen 600 mg PO Q8H PRN 7 Days #21 tablet PRN Reason: Pain Is patient prescribed a controlled substance at d/c from ED?: No Referrals: None,Stated [REFERRING] - 1-2 days [facility] [NON-STAFF] - 1-2 days Time of Disposition: 20:05
== END 2019-02-01 20:24 | disposition home or self-care (01) ==
LOC: EC 19:13
DX: M62.830 Muscle spasm of back (principal); R62.50 Unspecified lack of expected normal physiological development in childhood; I10 Essential (primary) hypertension; I25.2 Old myocardial infarction; H40.9 Unspecified glaucoma; F41.0 Panic disorder [episodic paroxysmal anxiety]; Z88.2 Allergy status to sulfonamides; Z79.899 Other long term (current) drug therapy
CPT/HCPCS: 99283

== ENCOUNTER 2019-03-28 06:35 | Day surgery (SDC) | payer OTHER ==
[2019-03-27 10:34] VITALS: BMI 32.8
[~2019-03-28 06:35] MED LIST: LACTATED RINGERS 1,000 ML IV SCH; LIDOCAINE 1% 20 ML VIAL (10MG/ML) FOR IV START INTRADERMA PRN
[2019-03-28 07:27] VITALS: TEMP 98.2
[2019-03-28] MEDS ORDERED: PROPOFOL 10 MG/ML 20 ML VIAL IV ONE (07:29)
[2019-03-28] MEDS ORDERED: LIDOCAINE 1% INJ 10MG/ML (20 ML MDV) ONE (07:29)
--- NOTE | 2019-03-28 08:08 | P.PCN ---
Date of Procedure: 03/28/19 Procedure(s) Performed: Procedures: 1. Esophagogastroduodenoscopy and biopsy. 2. Total colonoscopy. Preoperative diagnosis: Abdominal pain and screening for colon cancer. Postoperative diagnosis: 1. Small sliding hiatal hernia with no obvious esophagitis or complicated reflux disease. 2. Mild antral gastritis. 3. Multiple biopsies obtained from the duodenum, antrum and esophagus. 4. Colon exam within normal limits. Preparation: HalfLytely prep. Sedation: Was provided by anesthesia. Brief clinical history: The patient is a 58-year-old female who is scheduled for this evaluation because of unexplained abdominal pain. She had no prior colonoscopy and is scheduled for screening for colon cancer as well. Procedure: With the patient on her left lateral decubitus position and after informed consent and adequate sedation, I passed the [employer] H190 video upper endoscope through the cricopharyngeus down the esophagus. GE junction was around 38 cm from the incisors and there was a small sliding hiatal hernia but no obvious esophagitis or complicated reflux disease. The endoscope was then passed into the stomach which was insufflated with air and inspected in detail including the retroflex view in the cardia. There was some mottling and erythema in the antrum but no ulcers or erosions pyloric channel, duodenal bulb, post bulbar area and descending duodenum appeared within normal limits. I obtained biopsies from the duodenum, antrum and esophagus then the endoscope was withdrawn and I proceeded to perorm the colonoscopy. Perianal area did not show any fissures or fistulas. There were no masses felt on digital rectal examination. The Olympus CFH 190L video colonoscope was then inserted in the rectum in the usual fashion and advanced to the cecum. The mucosa appeared healthy. No polyps or tumors were seen or any obvious diverticular disease or other pathology. I retroflexed the endoscope in the rectum before the endoscope was withdrawn. The patient tolerated the procedure well. Plan: The patient was reassured. Will await biopsy results. She will follow-up with you as planned and I recommended repeat colonoscopy in 10 years.
[2019-03-28 08:34] VITALS: BP 122/74; PULSE 66; RESP 16
== END 2019-03-28 08:34 | disposition home or self-care (01) ==
LOC: ORWHC2ENDO 06:35
DX: Z12.11 Encounter for screening for malignant neoplasm of colon (principal); K44.9 Diaphragmatic hernia without obstruction or gangrene; K29.50 Unspecified chronic gastritis without bleeding; I10 Essential (primary) hypertension; E78.5 Hyperlipidemia, unspecified; I25.10 Atherosclerotic heart disease of native coronary artery without angina pectoris; I25.2 Old myocardial infarction; Z98.51 Tubal ligation status; E07.9 Disorder of thyroid, unspecified; F20.9 Schizophrenia, unspecified; Z79.890 Hormone replacement therapy; Z79.899 Other long term (current) drug therapy; Z88.2 Allergy status to sulfonamides
CPT/HCPCS: 88305; 43239; J2001; J2704; G0121

== ENCOUNTER 2019-04-14 23:01 | Emergency (ER) | payer OTHER ==
[2019-04-14 23:21] VITALS: RESP 18; TEMP 97.6
[2019-04-14] MEDS ORDERED: KETOROLAC 30 MG/ML 1 ML VIAL IM STA (23:42)
[2019-04-14] MEDS ORDERED: ACETAMINOPHEN TAB 325 MG TAB PO STA (23:42)
[2019-04-14] MEDS ORDERED: DIPH,PERTUS(ACELL)TETVAC-LF 0.5 ML VIAL IM ONE (23:42)
--- NOTE | 2019-04-15 00:25 | ED ---
Extremity Problem HPI - General Source: patient, EMS Mode of arrival: EMS Limitations: no limitations <Colette Moctezuma - Last Filed: 04/15/19 03:42> <Brenda Hanson - Last Filed: 04/15/19 05:33> - General Chief complaint: Extremity Problem,Nontraumatic Stated complaint: Lt knee pain Time Seen by Provider: 04/14/19 23:05 - History of Present Illness Initial comments: 58-year-old female patient presents to the emergency department today for evaluation of left knee pain. Patient states she experienced a trip and fall accident around 5 or 6 PM in the evening on 04/14/2019. Patient states she initially had no pain to the knee however she took a nap when she woke up around 10 PM she had increased pain to the lateral aspect of the knee and is having difficulty ambulating. She denies any numbness or tingling to the leg. Denies any previous injury to the knee. Patient states that she may have struck her head when she fell but she does not recall. She denies a loss of consciousness. Denies any other injuries. Patient is unsure when her last tetanus vaccine was administered. Patient denies any headache, neck pain, back pain, chest pain, shortness of breath, dizziness, weakness, abdominal pain, nausea, vomiting, or difficulties with bowel movements or urination. (Colette Moctezuma) - Related Data Home Medications Medication Instructions Recorded Confirmed Acetaminophen Tab [Tylenol] 650 mg PO BID PRN 06/01/16 03/28/19 FLUoxetine HCL [PROzac] 20 mg PO DAILY 03/30/18 03/28/19 Latanoprost [Xalatan 0.005%] 1 drop BOTH EYES HS 03/30/18 03/28/19 busPIRone HCL 15 mg PO BID 03/30/18 03/28/19 Folic Acid 1 mg PO DAILY 07/06/18 03/28/19 Metoprolol Tartrate [Lopressor] 25 mg PO DAILY 07/06/18 03/28/19 Multivitamins, Thera [Multivitamin 1 tab PO DAILY 07/06/18 03/28/19 (formulary)] Dicyclomine [Bentyl] 20 mg PO BID 11/02/18 03/28/19 Previous Rx's Medication Instructions Recorded Levothyroxine Sodium [Synthroid] 50 mcg PO DAILY #30 tab 11/14/16 Loratadine 10 mg PO DAILY #30 tablet 11/14/16 Atorvastatin [Lipitor] 80 mg PO DAILY #30 tab 04/04/18 Pantoprazole [Protonix] 40 mg PO DAILY #30 tablet. 04/04/18 Ondansetron [Zofran ODT] 4 mg PO Q8HR PRN #10 tab 12/25/18 Ibuprofen 600 mg PO Q8H PRN 7 Days #21 tablet 02/01/19 Acetaminophen-Codeine 300-30mg 1 tab PO Q6H PRN #12 tablet 04/15/19 [Tylenol #3] Allergies Allergy/AdvReac Type Severity Reaction Status Date / Time Sulfa (Sulfonamide Allergy Unknown Rash/Hives Verified 03/28/19 06:56 Antibiotics) Review of Systems ROS Other: All systems not noted in ROS Statement are negative. <Colette Moctezuma - Last Filed: 04/15/19 03:42> ROS Other: All systems not noted in ROS Statement are negative. <Brenda Hanson - Last Filed: 04/15/19 05:33> ROS Statement: Those systems with pertinent positive or pertinent negative responses have been documented in the HPI. Past Medical History Past Medical History: Eye Disorder, GERD/Reflux, Hyperlipidemia, Hypertension, Memory Impairment, Myocardial Infarction ([place]), Neurologic Disorder, Thyroid Disorder Additional Past Medical History / Comment(s): Bilateral glaucoma, possible [place] 09/12/13, celiac disease, hx. UTIs, UTI with sepsis, lower GI bleed, anemia. Last Myocardial Infarction Date:: Possible [place] 2012 History of Any Multi-Drug Resistant Organisms: None Reported Past Surgical History: Section, Tubal Ligation Additional Past Surgical History / Comment(s): Bilateral cataract removal and lens implant, colonoscopy Past Anesthesia/Blood Transfusion Reactions: No Reported Reaction Past Psychological History: Panic Disorder, PTSD, Schizoaffective Disorder, Schizophrenia Smoking Status: Never smoker Past Alcohol Use History: None Reported Past Drug Use History: None Reported - Past Family History Father Family Medical History: CVA/TIA, Diabetes Mellitus Additional Family Medical History / Comment(s): Father is alive and his 70s Mother Family Medical History: No Reported History Brother(s) Additional Family Medical History / Comment(s): She has 2 brothers. One at age 43 from [facility] and 1 is alive with no major medical problems. Patient has no sisters. <Colette Moctezuma M - Last Filed: 04/15/19 03:42> General Exam Limitations: no limitations General appearance: alert, in no apparent distress, other (Physical well- developed, well-nourished adult female patient in no acute distress. Vital signs upon presentation are temperature 97.6F, pulse 76, respirations 18, blood pressure 134/73, pulse ox 96% on room air.) Eye exam: Present: normal appearance, PERRL, EOMI. Absent: scleral icterus, conjunctival injection, periorbital swelling ENT exam: Present: normal exam, normal oropharynx, mucous membranes moist Neck exam: Present: normal inspection, full ROM, other (Nontender, no step-off, no deformity to firm midline palpation of the posterior cervical spine. Full range of motion without pain or limitation.). Absent: tenderness, meningismus, lymphadenopathy Respiratory exam: Present: normal lung sounds bilaterally. Absent: respiratory distress, wheezes, rales, rhonchi, stridor Cardiovascular Exam: Present: regular rate, normal rhythm, normal heart sounds. Absent: systolic murmur, diastolic murmur, rubs, gallop, clicks GI/Abdominal exam: Present: soft, normal bowel sounds. Absent: distended, tenderness, guarding, rebound, rigid Extremities exam: Present: full ROM, tenderness (Tenderness over the left anterior knee), normal capillary refill, other (There is superficial abrasion noted to the left knee, surrounding ecchymosis. Patient has full range of motion of the knee. There is anterior knee tenderness. Mild soft tissue swelling. Remainder of skin is pink, warm, dry. Cap refills less than 3 seconds. Pedal and posttibial pulses are 2+ and equal bilaterally.). Absent: normal inspection, pedal edema, joint swelling, calf tenderness Back exam: Present: normal inspection, other (Nontender, no step-off, no deform ity to firm midline palpation of the thoracic and lumbar vertebrae. Full range of motion without pain or limitation.). Absent: vertebral tenderness Neurological exam: Present: alert, oriented X3, CN II-XII intact Psychiatric exam: Present: normal affect, normal mood Skin exam: Present: warm, dry, intact, normal color. Absent: rash <Bantle,Colette M - Last Filed: 04/15/19 03:42> Course Vital Signs 04/14/19 04/15/19 23:11 03:49 Temperature 97.6 F Pulse Rate 76 72 Respiratory 18 18 Rate Blood Pressure 134/73 127/68 O2 Sat by Pulse 96 97 Oximetry Medical Decision Making - Radiology Data Radiology results: report reviewed, image reviewed <Colette Moctezuma - Last Filed: 04/15/19 03:42> <Brenda Hanson - Last Filed: 04/15/19 05:33> - Medical Decision Making 58-year-old female patient presented to the emergency department today for evaluation of left knee pain after experiencing a fall earlier in the day. Physical examination did reveal an abrasion to the left anterior knee with surrounding ecchymosis. There is soft tissue swelling noted. X-ray of the knee showed large effusion. CT was obtained to further evaluate the osseous structures which showed a nondisplaced patella fracture. Patient is placed in a knee immobilizer. She is instructed to follow-up with the transition of care specialist for further evaluation as soon as possible. Patient does have a legal guardian, legal guardian was contacted and informed of diagnosis, management, and plan. She will assist patient making orthopedic follow-up appointments. Return parameters were discussed in detail. Patient and guardian verbalizes understanding and agreed with the plan. (Colette Moctezuma) I personally saw and evaluated the patient. X-ray with large effusion therefore computed tomography scan was ordered which revealed a patellar fracture. Patient was placed in knee immobilizer discharged home. (Brenda Hanson) - Radiology Data 3 views of the left knee were obtained. Report was reviewed in its entirety. Impression by Dr. George shows large left knee effusion. No acute osseous abnormality. CT of the left knee without contrast was obtained. Report reviewed in its entirety. Impression by Dr. George shows acute nondisplaced fracture of the lateral patella. Moderate hemarthrosis. (Colette Moctezuma) Disposition Is patient prescribed a controlled substance at d/c from ED?: Yes When asked, does pt state using other controlled substances?: No If prescribed controlled substance>3 days was MAPS reviewed?: Prescribed <3 Days If opioid is for acute pain is fill amount 7 days or less?: Yes If Rx opioid, was Start Talking consent form obtained?: Yes Time of Disposition: 01:21 <Colette Moctezuma - Last Filed: 04/15/19 03:42> <Brenda aHnson - Last Filed: 04/15/19 05:33> Clinical Impression: Left patella fracture, Hemarthrosis, left knee Disposition: HOME SELF-CARE Condition: Good Instructions (If sedation given, give patient instructions): Patellar Fracture (ED), Swollen Knee Joint (ED) Additional Instructions: Follow-up with transition of care specialist for recheck as soon as possible. Splint when sleeping and walking. Use crutches and remain nonweightbearing to the left leg. Take pain medication as directed. Follow-up with your primary care physician for recheck in 1-2 days. Return to the emergency department immediately for any new, worsening, or concerning symptoms. Prescriptions: Acetaminophen-Codeine 300-30mg [Tylenol #3] 1 tab PO Q6H PRN #12 tablet PRN Reason: Pain Referrals: Cindy Gardner MD [Primary Care Provider] - 1-2 days Devon Ott DO [Doctor of Osteopathic Medicine] - 1-2 days
--- NOTE | 2019-04-15 00:35 | XR ---
EXAM: XR Left Knee, 3 views CLINICAL HISTORY: pain TECHNIQUE: Three views of the left knee. COMPARISON: No relevant prior studies available. FINDINGS: Bones/joints: Large left knee effusion. Normal mineralization and alignment. No acute fracture. Soft tissues: Unremarkable. IMPRESSION: Large left knee effusion. No acute osseous abnormality.
--- NOTE | 2019-04-15 01:19 | CT ---
EXAM: CT Left Lower Extremity Without Intravenous Contrast, Knee CLINICAL HISTORY: Pain TECHNIQUE: Axial computed tomography images of the left knee without intravenous contrast. CTDI is 0.085, 0.085, 4.3 mGy and DLP is 140.6 mGy-cm. This CT exam was performed using one or more of the following dose reduction techniques: automated exposure control, adjustment of the mA and/or kV according to patient size, and/or use of iterative reconstruction technique. COMPARISON: No relevant prior studies available. FINDINGS: Bones/joints: Acute nondisplaced fracture of the lateral patella. Moderate complex knee effusion. Alignment is maintained. Soft tissues: Anterior soft tissue edema. IMPRESSION: Acute nondisplaced fracture of the lateral patella. Moderate hemarthrosis.
[2019-04-15] MEDS ORDERED: ACET/COD 300 MG/30 MG STARTER PACK 6 TAB BTL PO STA (01:21)
[2019-04-15 03:53] VITALS: BP 127/68; PULSE 72
== END 2019-04-15 02:03 | disposition home or self-care (01) ==
LOC: EC 23:01
DX: S82.002A Unspecified fracture of left patella, initial encounter for closed fracture (principal); M25.062 Hemarthrosis, left knee; Z23 Encounter for immunization; I10 Essential (primary) hypertension; I25.2 Old myocardial infarction; F41.0 Panic disorder [episodic paroxysmal anxiety]; F25.9 Schizoaffective disorder, unspecified; Z79.899 Other long term (current) drug therapy; Z88.2 Allergy status to sulfonamides; W01.0XXA Fall on same level from slipping, tripping and stumbling without subsequent striking against object, initial encounter
CPT/HCPCS: 73562; 73700; 90715; 99284; 90471; 96372; J1885

== ENCOUNTER 2019-06-01 15:27 | Emergency (ER) | payer OTHER ==
[2019-06-01 15:32] VITALS: BP 130/78; PULSE 69; RESP 18; TEMP 98
--- NOTE | 2019-06-01 15:51 | XR ---
EXAMINATION TYPE: XR knee complete RT DATE OF EXAM: 06/01/2019 COMPARISON: NONE HISTORY: Knee pain TECHNIQUE: 3 views FINDINGS: I see no fracture nor dislocation. There is some spurring on the patella. There is no sign of knee joint effusion. Joint spaces are fairly normal. IMPRESSION: Mild spurring. No fracture.
--- NOTE | 2019-06-01 15:57 | ED ---
Extremity Problem HPI - General Chief complaint: Extremity Problem,Nontraumatic Stated complaint: Knee pain Time Seen by Provider: 06/01/19 15:33 Source: patient, RN notes reviewed Mode of arrival: ambulatory Limitations: no limitations - History of Present Illness Initial comments: 58-year-old female presents emergency Department chief complaint of right knee pain. Patient states she fell a few weeks ago. Patient states her knee started bothering her. Patient has had no prior issues no head injury no loss conscious. Patient denies any swelling redness redness. Patient denies any paresthesias no hip or ankle pain. - Related Data Home Medications Medication Instructions Recorded Confirmed Acetaminophen Tab [Tylenol] 650 mg PO BID PRN 06/01/16 03/28/19 FLUoxetine HCL [PROzac] 20 mg PO DAILY 03/30/18 03/28/19 Latanoprost [Xalatan 0.005%] 1 drop BOTH EYES HS 03/30/18 03/28/19 busPIRone HCL 15 mg PO BID 03/30/18 03/28/19 Folic Acid 1 mg PO DAILY 07/06/18 03/28/19 Metoprolol Tartrate [Lopressor] 25 mg PO DAILY 07/06/18 03/28/19 Multivitamins, Thera [Multivitamin 1 tab PO DAILY 07/06/18 03/28/19 (formulary)] Dicyclomine [Bentyl] 20 mg PO BID 11/02/18 03/28/19 Previous Rx's Medication Instructions Recorded Levothyroxine Sodium [Synthroid] 50 mcg PO DAILY #30 tab 11/14/16 Loratadine 10 mg PO DAILY #30 tablet 11/14/16 Atorvastatin [Lipitor] 80 mg PO DAILY #30 tab 04/04/18 Pantoprazole [Protonix] 40 mg PO DAILY #30 tablet. 04/04/18 Ondansetron [Zofran ODT] 4 mg PO Q8HR PRN #10 tab 12/25/18 Ibuprofen 600 mg PO Q8H PRN 7 Days #21 tablet 02/01/19 Acetaminophen-Codeine 300-30mg 1 tab PO Q6H PRN #12 tablet 04/15/19 [Tylenol #3] Ibuprofen [Motrin] 600 mg PO Q8HR PRN #20 tab 06/01/19 Allergies Allergy/AdvReac Type Severity Reaction Status Date / Time Sulfa (Sulfonamide Allergy Unknown Rash/Hives Verified 03/28/19 06:56 Antibiotics) Review of Systems ROS Statement: Those systems with pertinent positive or pertinent negative responses have been documented in the HPI. ROS Other: All systems not noted in ROS Statement are negative. Past Medical History Past Medical History: Eye Disorder, GERD/Reflux, Hyperlipidemia, Hypertension, Memory Impairment, Myocardial Infarction ([place]), Neurologic Disorder, Thyroid Disorder Additional Past Medical History / Comment(s): Bilateral glaucoma, possible [place] 09/12/13, celiac disease, hx. UTIs, UTI with sepsis, lower GI bleed, anemia. Last Myocardial Infarction Date:: Possible [place] 2012 History of Any Multi-Drug Resistant Organisms: None Reported Past Surgical History: Section, Tubal Ligation Additional Past Surgical History / Comment(s): Bilateral cataract removal and lens implant, colonoscopy Past Anesthesia/Blood Transfusion Reactions: No Reported Reaction Past Psychological History: Panic Disorder, PTSD, Schizoaffective Disorder, Schizophrenia Smoking Status: Never smoker Past Alcohol Use History: None Reported Past Drug Use History: None Reported - Past Family History Father Family Medical History: CVA/TIA, Diabetes Mellitus Additional Family Medical History / Comment(s): Father is alive and his 70s Mother Family Medical History: No Reported History Brother(s) Additional Family Medical History / Comment(s): She has 2 brothers. One at age 43 from lockjaw and 1 is alive with no major medical problems. Patient has no sisters. General Exam Limitations: no limitations General appearance: alert, in no apparent distress Head exam: Present: atraumatic, normocephalic, normal inspection Respiratory exam: Present: normal lung sounds bilaterally. Absent: respiratory distress, wheezes, rales, rhonchi, stridor Cardiovascular Exam: Present: regular rate, normal rhythm, normal heart sounds. Absent: systolic murmur, diastolic murmur, rubs, gallop, clicks Extremities exam: Present: other (Right knee full range of motion nontender no laxity, neurovascularly intact) Course Vital Signs 06/01/19 15:31 Temperature 98.0 F Pulse Rate 69 Respiratory 18 Rate Blood Pressure 130/78 O2 Sat by Pulse 97 Oximetry Medical Decision Making - Medical Decision Making 58-year-old female presented for knee pain. Patient has mild spurring arthritic changes. Patient will follow-up with PCP for continuation of care and felt a orthopedics as necessary. Disposition Clinical Impression: Knee pain Disposition: HOME SELF-CARE Condition: Stable Instructions (If sedation given, give patient instructions): Knee Pain (ED) Additional Instructions: Please return to the Emergency Department if symptoms worsen or any other concerns. Prescriptions: Ibuprofen [Motrin] 600 mg PO Q8HR PRN #20 tab PRN Reason: Pain Is patient prescribed a controlled substance at d/c from ED?: No Referrals: Cindy Gardner MD [Primary Care Provider] - 1-2 days Alphonso Barksdale MD [Medical Doctor] - 1-2 days Time of Disposition: 15:56
== END 2019-06-01 16:26 | disposition home or self-care (01) ==
LOC: EC 15:27
DX: M25.561 Pain in right knee (principal); M17.11 Unilateral primary osteoarthritis, right knee; I10 Essential (primary) hypertension; F41.0 Panic disorder [episodic paroxysmal anxiety]; H40.9 Unspecified glaucoma; Z88.2 Allergy status to sulfonamides; Z79.899 Other long term (current) drug therapy; Z87.19 Personal history of other diseases of the digestive system
CPT/HCPCS: 99283

== ENCOUNTER 2019-06-04 01:14 | Emergency (ER) | payer OTHER ==
--- NOTE | 2019-06-04 02:56 | ED ---
General Adult HPI - General Chief complaint: ENT Stated complaint: Medication Reaction Time Seen by Provider: 06/04/19 01:45 Source: EMS Mode of arrival: EMS Limitations: no limitations - History of Present Illness Initial comments: 58-year-old female patient presents to the emergency department today for evaluation of sore throat. Patient states this started approximately one hour prior to arrival. Patient states she did drink some water which did not help her symptoms. Patient did start a new medication called [place] today and was concerned she may have been having a reaction which caused her to become anxious. Patient denies any fever or chills. States she has had some clear nasal discharge. Denies cough or congestion. She denies any rash, lip swelling, throat swelling, or tongue swelling. Patient denies any recent rash, shortness breath, chest pain, abdominal pain, nausea, vomiting, diarrhea, constipation, back pain, numbness, tingling, dizziness, weakness, hematuria, dysuria, urinary urgency, urinary frequency, headache, visual changes, or any other complaints. - Related Data Home Medications Medication Instructions Recorded Confirmed Acetaminophen Tab [Tylenol] 650 mg PO BID PRN 06/01/16 03/28/19 FLUoxetine HCL [PROzac] 20 mg PO DAILY 03/30/18 03/28/19 Latanoprost [Xalatan 0.005%] 1 drop BOTH EYES HS 03/30/18 03/28/19 busPIRone HCL 15 mg PO BID 03/30/18 03/28/19 Folic Acid 1 mg PO DAILY 07/06/18 03/28/19 Metoprolol Tartrate [Lopressor] 25 mg PO DAILY 07/06/18 03/28/19 Multivitamins, Thera [Multivitamin 1 tab PO DAILY 07/06/18 03/28/19 (formulary)] Dicyclomine [Bentyl] 20 mg PO BID 11/02/18 03/28/19 Previous Rx's Medication Instructions Recorded Levothyroxine Sodium [Synthroid] 50 mcg PO DAILY #30 tab 11/14/16 Loratadine 10 mg PO DAILY #30 tablet 11/14/16 Atorvastatin [Lipitor] 80 mg PO DAILY #30 tab 04/04/18 Pantoprazole [Protonix] 40 mg PO DAILY #30 tablet. 04/04/18 Ondansetron [Zofran ODT] 4 mg PO Q8HR PRN #10 tab 12/25/18 Ibuprofen 600 mg PO Q8H PRN 7 Days #21 tablet 02/01/19 Acetaminophen-Codeine 300-30mg 1 tab PO Q6H PRN #12 tablet 04/15/19 [Tylenol #3] Ibuprofen [Motrin] 600 mg PO Q8HR PRN #20 tab 06/01/19 Allergies Allergy/AdvReac Type Severity Reaction Status Date / Time Sulfa (Sulfonamide Allergy Unknown Rash/Hives Verified 06/04/19 01:55 Antibiotics) Review of Systems ROS Statement: Those systems with pertinent positive or pertinent negative responses have been documented in the HPI. ROS Other: All systems not noted in ROS Statement are negative. Past Medical History Past Medical History: Eye Disorder, GERD/Reflux, Hyperlipidemia, Hypertension, Memory Impairment, Myocardial Infarction (HI), Neurologic Disorder, Thyroid Disorder Additional Past Medical History / Comment(s): Bilateral glaucoma, possible HI 09/12/13, celiac disease, hx. UTIs, UTI with sepsis, lower GI bleed, anemia. Last Myocardial Infarction Date:: Possible HI 2012 History of Any Multi-Drug Resistant Organisms: None Reported Past Surgical History: Section, Tubal Ligation Additional Past Surgical History / Comment(s): Bilateral cataract removal and lens implant, colonoscopy Past Anesthesia/Blood Transfusion Reactions: No Reported Reaction Past Psychological History: Panic Disorder, PTSD, Schizoaffective Disorder, Schizophrenia Smoking Status: Never smoker Past Alcohol Use History: None Reported Past Drug Use History: None Reported - Past Family History Father Family Medical History: CVA/TIA, Diabetes Mellitus Additional Family Medical History / Comment(s): Father is alive and his 70s Mother Family Medical History: No Reported History Brother(s) Additional Family Medical History / Comment(s): She has 2 brothers. One at age 43 from formerly [facility] and 1 is alive with no major medical problems. Patient has no sisters. General Exam Limitations: no limitations General appearance: alert, in no apparent distress, other (This is a well- developed, well-nourished adult female patient in no acute distress. Vital signs upon presentation are temperature 98.7F, pulse 71, respirations 20, blood pressure 128/80, pulse ox 97% on room air.) Eye exam: Present: normal appearance, PERRL, EOMI. Absent: scleral icterus, conjunctival injection, periorbital swelling ENT exam: Present: normal oropharynx (Pharyngeal erythema), mucous membranes moist, TM's normal bilaterally. Absent: normal exam Neck exam: Present: normal inspection. Absent: tenderness, meningismus, lymphadenopathy Respiratory exam: Present: normal lung sounds bilaterally. Absent: respiratory distress, wheezes, rales, rhonchi, stridor Cardiovascular Exam: Present: regular rate, normal rhythm, normal heart sounds. Absent: systolic murmur, diastolic murmur, rubs, gallop, clicks Neurological exam: Present: alert, oriented X3, CN II-XII intact Psychiatric exam: Present: normal affect, normal mood Skin exam: Present: warm, dry, intact, normal color. Absent: rash Course Vital Signs 06/04/19 06/04/19 01:30 03:09 Temperature 98.7 F 98.8 F Pulse Rate 71 75 Respiratory 20 18 Rate Blood Pressure 128/80 125/74 O2 Sat by Pulse 97 97 Oximetry Medical Decision Making - Medical Decision Making 58-year-old female patient presents to the emergency department today for evaluation of sore throat. Physical examination did reveal pharyngeal erythema. There is no pharyngeal or uvular swelling. No lymphadenopathy. No lip or tongue swelling. No rash. Patient is concerned she may have been having a reaction to her [place], I informed for this is unlikely. Strep screen was negative. We did discuss the possibility of viral infection as a cause for her symptoms. She is instructed to take Tylenol and Motrin. Increase fluids. She is instructed to follow-up with the primary care physician for recheck in 1-2 days. Return parameters were discussed in detail. She verbalizes understanding and agrees with this plan. - Lab Data Lab Results 06/04/19 Range/Units 01:50 Group A Strep Rapid Negative (Negative) Disposition Clinical Impression: Sore throat Disposition: HOME SELF-CARE Condition: Good Instructions (If sedation given, give patient instructions): Pharyngitis (ED) Additional Instructions: Take Tylenol or Motrin for pain control. Follow-up with your primary care physician for recheck in 1-2 days. Return to the emergency department immediately for any new, worsening, or concerning symptoms. Is patient prescribed a controlled substance at d/c from ED?: No Referrals: Cindy Gardner MD [Primary Care Provider] - 1-2 days Time of Disposition: :56
[2019-06-04 03:10] VITALS: BP 125/74; PULSE 75; RESP 18; TEMP 98.8
== END 2019-06-04 03:10 | disposition home or self-care (01) ==
LOC: EC 01:14
DX: J02.9 Acute pharyngitis, unspecified (principal); F43.10 Post-traumatic stress disorder, unspecified; F41.0 Panic disorder [episodic paroxysmal anxiety]; H40.9 Unspecified glaucoma; I10 Essential (primary) hypertension; K21.9 Gastro-esophageal reflux disease without esophagitis; I25.2 Old myocardial infarction; Z79.899 Other long term (current) drug therapy; Z88.2 Allergy status to sulfonamides; Z98.41 Cataract extraction status, right eye; Z98.42 Cataract extraction status, left eye; Z96.1 Presence of intraocular lens; Z87.19 Personal history of other diseases of the digestive system
CPT/HCPCS: 87081; 87430; 99283

== ENCOUNTER → 2019-08-16 | Outpatient (CLI) | payer OTHER ==
--- NOTE | 2019-08-16 13:46 | MM ---
Reason for exam: screening (asymptomatic). Last mammogram was performed 1 year and 7 months ago. History: Patient is postmenopausal. Took hormonal contraceptives for 4 months. Physical Findings: A clinical breast exam by your physician is recommended on an annual basis and results should be correlated with mammographic findings. MG Screening Mammo w CAD Bilateral CC, MLO, and XCCL view(s) were taken. Prior study comparison: January 24, 2018, bilateral MG screening mammo w CAD. September 06, 2017, right breast MG diagnostic mammo RT w CAD. The breast tissue is heterogeneously dense. This may lower the sensitivity of mammography. Benign appearing bilateral calcifications. No suspicious abnormality. No significant changes when compared with prior studies. ASSESSMENT: Benign, BI-RAD 2 RECOMMENDATION: Routine screening mammogram of both breasts in 1 year.
== END | disposition home or self-care (01) ==
LOC: RADMAMWWP 10:01
PROVIDERS: ATTEND Family Medicine
DX: Z12.31 Encounter for screening mammogram for malignant neoplasm of breast (principal)
CPT/HCPCS: 77067

== ENCOUNTER 2020-10-17 15:31 | Emergency (ER) | payer OTHER ==
[2020-10-17 15:43] VITALS: BP 133/72; PULSE 70; RESP 18; TEMP 98.7
--- NOTE | 2020-10-17 16:09 | ED ---
Psych HPI - General Chief Complaint: Psychiatric Symptoms Stated Complaint: anxiety Time Seen by Provider: 10/17/20 15:39 Source: patient, EMS, RN notes reviewed Mode of arrival: EMS Limitations: no limitations - History of Present Illness Initial Comments: This is a 59-year-old female presents emergency Department chief complaints anxiety, depression. Patient states that she's been worsening symptoms. She states she felt suicidal earlier but does not currently. She states that she had someone call emergency services for her. Patient denies any drug or alcohol use. Patient is a well-known to psychiatric services. Patient no physical complaints. She states she's been taking her medications as directed. Patient denies any other complaints or symptoms at this time. - Related Data Home Medications Medication Instructions Recorded Confirmed Acetaminophen Tab [Tylenol] 650 mg PO BID PRN 06/01/16 03/28/19 FLUoxetine HCL [PROzac] 20 mg PO DAILY 03/30/18 03/28/19 Latanoprost [Xalatan 0.005%] 1 drop BOTH EYES HS 03/30/18 03/28/19 busPIRone HCL 15 mg PO BID 03/30/18 03/28/19 Folic Acid 1 mg PO DAILY 07/06/18 03/28/19 Metoprolol Tartrate [Lopressor] 25 mg PO DAILY 07/06/18 03/28/19 Multivitamins, Thera [Multivitamin 1 tab PO DAILY 07/06/18 03/28/19 (formulary)] Dicyclomine [Bentyl] 20 mg PO BID 11/02/18 03/28/19 Previous Rx's Medication Instructions Recorded Levothyroxine Sodium [Synthroid] 50 mcg PO DAILY #30 tab 11/14/16 Loratadine 10 mg PO DAILY #30 tablet 11/14/16 Atorvastatin [Lipitor] 80 mg PO DAILY #30 tab 04/04/18 Pantoprazole [Protonix] 40 mg PO DAILY #30 tablet. 04/04/18 Ondansetron [Zofran ODT] 4 mg PO Q8HR PRN #10 tab 12/25/18 Ibuprofen 600 mg PO Q8H PRN 7 Days #21 tablet 02/01/19 Acetaminophen-Codeine 300-30mg 1 tab PO Q6H PRN #12 tablet 04/15/19 [Tylenol #3] Ibuprofen [Motrin] 600 mg PO Q8HR PRN #20 tab 06/01/19 Allergies Allergy/AdvReac Type Severity Reaction Status Date / Time Sulfa (Sulfonamide Allergy Unknown Rash/Hives Verified 10/17/20 15:44 Antibiotics) Review of Systems ROS Statement: Those systems with pertinent positive or pertinent negative responses have been documented in the HPI. ROS Other: All systems not noted in ROS Statement are negative. Past Medical History Past Medical History: Eye Disorder, GERD/Reflux, Hyperlipidemia, Hypertension, Memory Impairment, Myocardial Infarction (ID), Neurologic Disorder, Thyroid Disorder Additional Past Medical History / Comment(s): Bilateral glaucoma, possible ID 09/12/13, celiac disease, hx. UTIs, UTI with sepsis, lower GI bleed, anemia. Last Myocardial Infarction Date:: Possible ID 2012 History of Any Multi-Drug Resistant Organisms: None Reported Past Surgical History: Section, Tubal Ligation Additional Past Surgical History / Comment(s): Bilateral cataract removal and lens implant, colonoscopy Past Anesthesia/Blood Transfusion Reactions: No Reported Reaction Past Psychological History: Panic Disorder, PTSD, Schizoaffective Disorder, Schizophrenia Past Alcohol Use History: None Reported Past Drug Use History: None Reported - Past Family History Father Family Medical History: CVA/TIA, Diabetes Mellitus Additional Family Medical History / Comment(s): Father is alive and his 70s Mother Family Medical History: No Reported History Brother(s) Additional Family Medical History / Comment(s): She has 2 brothers. One at age 43 from formerly [facility] and 1 is alive with no major medical problems. Patient has no sisters. General Exam Limitations: no limitations General appearance: alert, in no apparent distress Head exam: Present: atraumatic, normocephalic, normal inspection Eye exam: Present: normal appearance, PERRL, EOMI. Absent: scleral icterus, conjunctival injection, periorbital swelling Respiratory exam: Present: normal lung sounds bilaterally. Absent: respiratory distress, wheezes, rales, rhonchi, stridor Cardiovascular Exam: Present: regular rate, normal rhythm, normal heart sounds. Absent: systolic murmur, diastolic murmur, rubs, gallop, clicks Neurological exam: Present: alert, oriented X3, CN II-XII intact Psychiatric exam: Present: anxious Course Vital Signs 10/17/20 15:38 Temperature 98.7 F Pulse Rate 70 Respiratory 18 Rate Blood Pressure 133/72 O2 Sat by Pulse 97 Oximetry Medical Decision Making - Medical Decision Making Patient was evaluated by a EPS patient is not currently suicidal patient had a panic attack. Patient is controlled discharged with act team to follow-up Disposition Clinical Impression: Acute anxiety Disposition: HOME SELF-CARE Condition: Stable Instructions (If sedation given, give patient instructions): Generalized Anxiety Disorder (ED) Additional Instructions: Please return to the Emergency Department if symptoms worsen or any other concerns. Is patient prescribed a controlled substance at d/c from ED?: No Referrals: Cindy Gardner MD [Primary Care Provider] - 1-2 days Time of Disposition: 16:48
[2020-10-17] MEDS ORDERED: LORazepam 1 MG TAB PO ONE (16:52)
== END 2020-10-17 17:03 | disposition home or self-care (01) ==
LOC: EC 15:31
DX: F41.9 Anxiety disorder, unspecified (principal); I10 Essential (primary) hypertension; H40.9 Unspecified glaucoma; F41.0 Panic disorder [episodic paroxysmal anxiety]; F25.9 Schizoaffective disorder, unspecified; I25.2 Old myocardial infarction; Z79.899 Other long term (current) drug therapy; Z88.2 Allergy status to sulfonamides
CPT/HCPCS: 82075; 99284

== ENCOUNTER → 2020-10-19 | Outpatient (CLI) | payer OTHER ==
--- NOTE | 2020-10-20 10:13 | MM ---
Reason for exam: screening (asymptomatic). Last mammogram was performed 1 year and 2 months ago. History: Patient is postmenopausal. Took hormonal contraceptives for 4 months. Physical Findings: A clinical breast exam by your physician is recommended on an annual basis and results should be correlated with mammographic findings. MG Screening Mammo w CAD Bilateral CC and MLO view(s) were taken. Prior study comparison: August 16, 2019, bilateral MG screening mammo w CAD. January 24, 2018, bilateral MG screening mammo w CAD. The breast tissue is heterogeneously dense. This may lower the sensitivity of mammography. Benign appearing bilateral calcifications. No significant changes when compared with prior studies. ASSESSMENT: Benign, BI-RAD 2 RECOMMENDATION: Routine screening mammogram of both breasts in 1 year.
== END | disposition home or self-care (01) ==
LOC: RADMAMWWP 12:31
PROVIDERS: ATTEND Family Medicine
DX: Z12.31 Encounter for screening mammogram for malignant neoplasm of breast (principal)
CPT/HCPCS: 77067

== ENCOUNTER → 2021-02-23 | Outpatient (CLI) | payer OTHER ==
--- NOTE | 2021-02-23 16:36 | US ---
EXAMINATION TYPE: US venous doppler duplex LE RT DATE OF EXAM: 02/23/2021 4:22 PM COMPARISON: NONE CLINICAL HISTORY: I80.9 Phlebitis and thrombophlebitis of unspecified. Pain TECHNIQUE: The lower extremity deep venous system is examined utilizing real time linear array sonog candice with graded compression, doppler sonography and color-flow sonography. VESSELS IMAGED: Common Femoral Vein Deep Femoral Vein Greater Saphenous Vein * Femoral Vein Popliteal Vein Small Saphenous Vein * Proximal Calf Veins (* superficial vessels) Right Leg: Negative for DVT IMPRESSION: Right Leg: No evidence of DVT in right lower extremity.
== END | disposition home or self-care (01) ==
LOC: RADUSWWP 15:59 → EEVIPCON 16:00
PROVIDERS: ATTEND Orthopaedic Surgery
DX: I80.9 Phlebitis and thrombophlebitis of unspecified site (principal)

== ENCOUNTER 2021-05-28 19:05 | Emergency (ER) | payer OTHER ==
[2021-05-28 19:42] VITALS: TEMP 98.8
--- NOTE | 2021-05-28 19:53 | ED ---
General Adult HPI - General Chief complaint: Psychiatric Symptoms Stated complaint: mental health Time Seen by Provider: 05/28/21 19:45 Source: patient, police, RN notes reviewed Mode of arrival: ambulatory - History of Present Illness Initial comments: Patient is a pleasant 60-year-old female presenting to the emergency department for depression and suicidal thoughts. Patient states she has been taking her medications however questions if she is taking the right. Patient states the act team does help her with this. Patient felt depressed with thoughts of suicide with considerations of cutting herself with a knife however decided it was not sharp enough. No homicidal thoughts. Patient denies alcohol or street drug use. No new physical complaints. - Related Data Home Medications Medication Instructions Recorded Confirmed Acetaminophen Tab [Tylenol] 650 mg PO BID PRN 06/01/16 03/28/19 FLUoxetine HCL [PROzac] 20 mg PO DAILY 03/30/18 03/28/19 Latanoprost [Xalatan 0.005%] 1 drop BOTH EYES HS 03/30/18 03/28/19 busPIRone HCL 15 mg PO BID 03/30/18 03/28/19 Folic Acid 1 mg PO DAILY 07/06/18 03/28/19 Metoprolol Tartrate [Lopressor] 25 mg PO DAILY 07/06/18 03/28/19 Multivitamins, Thera [Multivitamin 1 tab PO DAILY 07/06/18 03/28/19 (formulary)] Dicyclomine [Bentyl] 20 mg PO BID 11/02/18 03/28/19 Previous Rx's Medication Instructions Recorded Levothyroxine Sodium [Synthroid] 50 mcg PO DAILY #30 tab 11/14/16 Loratadine 10 mg PO DAILY #30 tablet 11/14/16 Atorvastatin [Lipitor] 80 mg PO DAILY #30 tab 04/04/18 Pantoprazole [Protonix] 40 mg PO DAILY #30 tablet. 04/04/18 Ondansetron [Zofran ODT] 4 mg PO Q8HR PRN #10 tab 12/25/18 Ibuprofen 600 mg PO Q8H PRN 7 Days #21 tablet 02/01/19 Acetaminophen-Codeine 300-30mg 1 tab PO Q6H PRN #12 tablet 04/15/19 [Tylenol #3] Ibuprofen [Motrin] 600 mg PO Q8HR PRN #20 tab 06/01/19 Allergies Allergy/AdvReac Type Severity Reaction Status Date / Time Sulfa (Sulfonamide Allergy Unknown Rash/Hives Verified 05/28/21 19:42 Antibiotics) Review of Systems ROS Statement: Those systems with pertinent positive or pertinent negative responses have been documented in the HPI. ROS Other: All systems not noted in ROS Statement are negative. Constitutional: Denies: fever Eyes: Denies: eye pain ENT: Denies: ear pain Respiratory: Denies: cough Cardiovascular: Denies: chest pain Endocrine: Denies: fatigue Gastrointestinal: Denies: abdominal pain Genitourinary: Denies: dysuria Musculoskeletal: Denies: back pain Skin: Denies: rash Neurological: Denies: weakness Past Medical History Past Medical History: Eye Disorder, GERD/Reflux, Hyperlipidemia, Hypertension, Memory Impairment, Myocardial Infarction (SD), Neurologic Disorder, Thyroid Disorder Additional Past Medical History / Comment(s): Bilateral glaucoma, possible SD 09/12/13, celiac disease, hx. UTIs, UTI with sepsis, lower GI bleed, anemia. Last Myocardial Infarction Date:: Possible SD 2012 History of Any Multi-Drug Resistant Organisms: None Reported Past Surgical History: Section, Tubal Ligation Additional Past Surgical History / Comment(s): Bilateral cataract removal and lens implant, colonoscopy Past Anesthesia/Blood Transfusion Reactions: No Reported Reaction Past Psychological History: Panic Disorder, PTSD, Schizoaffective Disorder, Schizophrenia Smoking Status: Never smoker Past Alcohol Use History: None Reported Past Drug Use History: None Reported - Past Family History Father Family Medical History: CVA/TIA, Diabetes Mellitus Additional Family Medical History / Comment(s): Father is alive and his 70s Mother Family Medical History: No Reported History Brother(s) Additional Family Medical History / Comment(s): She has 2 brothers. One at age 43 from [facility] and 1 is alive with no major medical problems. Patient has no sisters. General Exam Limitations: no limitations General appearance: alert, in no apparent distress Head exam: Present: normocephalic Eye exam: Present: normal appearance Neck exam: Present: normal inspection Respiratory exam: Present: normal lung sounds bilaterally Cardiovascular Exam: Present: regular rate, normal rhythm GI/Abdominal exam: Present: soft. Absent: tenderness Extremities exam: Present: normal inspection Neurological exam: Present: alert Psychiatric exam: Present: depressed Skin exam: Present: normal color Course Vital Signs 05/28/21 19:39 Temperature 98.8 F Pulse Rate 87 Respiratory 18 Rate Blood Pressure 135/72 O2 Sat by Pulse 98 Oximetry Medical Decision Making - Medical Decision Making Patient seen by mental health services with plans for discharge. Patient reevaluated. Patient not suicidal at this time and contracts for safety. Act team is to follow-up with the patient tomorrow. Disposition Clinical Impression: Depression Disposition: HOME SELF-CARE Condition: Stable Instructions (If sedation given, give patient instructions): Depression (ED) Additional Instructions: Please follow-up tomorrow with the act team. Please also follow-up to in the next day or 2 for recheck. Return for thoughts of self-harm, worsening symptoms or other concerns. Is patient prescribed a controlled substance at d/c from ED?: No Referrals: Cindy Gardner MD [Primary Care Provider] - 1-2 days Time of Disposition: 20:55
[2021-05-28 21:10] VITALS: BP 130/64; PULSE 82; RESP 16
== END 2021-05-28 21:10 | disposition home or self-care (01) ==
LOC: EC 19:05
DX: F32.9 Major depressive disorder, single episode, unspecified (principal); R45.851 Suicidal ideations; I10 Essential (primary) hypertension; I25.2 Old myocardial infarction; Z88.2 Allergy status to sulfonamides; Z79.899 Other long term (current) drug therapy
CPT/HCPCS: 82075; 99284

== ENCOUNTER → 2021-12-01 | Outpatient (CLI) | payer OTHER ==
--- NOTE | 2021-12-03 13:47 | MM ---
Reason for exam: screening (asymptomatic). Last mammogram was performed 1 year and 1 month ago. History: Patient is postmenopausal. Took hormonal contraceptives for 4 months. Physical Findings: A clinical breast exam by your physician is recommended on an annual basis and results should be correlated with mammographic findings. MG Screening Mammo w CAD Bilateral CC and MLO view(s) were taken. XCCM view(s) were taken of the left breast. Prior study comparison: October 19, 2020, bilateral MG screening mammo w CAD. August 16, 2019, bilateral MG screening mammo w CAD. There are scattered fibroglandular densities. Focal asymmetry right upper outer quadrant is unchanged. Benign bilateral vascular and oil cyst calcifications. No significant changes when compared with prior studies. ASSESSMENT: Benign, BI-RAD 2 RECOMMENDATION: Routine screening mammogram of both breasts in 1 year.
== END ==
LOC: RADMAMWWP 13:12
PROVIDERS: ATTEND Family Medicine
DX: Z12.31 Encounter for screening mammogram for malignant neoplasm of breast (principal)
CPT/HCPCS: 77067

== ENCOUNTER 2021-12-19 13:25 | Emergency (ER) | payer OTHER ==
[2021-12-19 13:59] VITALS: BP 110/76; RESP 16; TEMP 97.8
[2021-12-19 14:09] LABS: Glucose,Whole Blood 118 mg/dL (75-99)
--- NOTE | 2021-12-19 14:15 | ED ---
General Adult HPI - General Chief complaint: Psychiatric Symptoms Stated complaint: depression Time Seen by Provider: 12/19/21 13:30 Source: patient - History of Present Illness Initial comments: This 61-year-old female with past medical history of GERD, hypertension, hyperlipidemia, memory impairment, neurologic disorder presents emergency department for "I just feel overwhelmed." Patient states she lives at home alone and over the last 2 days has felt more overwhelmed than usual. Patient states she has tried to cut herself in the past. When asked what she would do to hurt her so she says "I have many things I could do to kill myself." Patient states she does see a psychiatrist but is unsure who it is. Patient states she is on some sort of medication but is unaware which medication she is taking. Patient states she does have bedbugs at home at this time. Patient states she does not have any complaints or issues other than feeling more overwhelmed and suicidal over the last couple of days. When asked She denies any chest pain, shortness o don't think I wanted, so I have thoughts of hurting myself, but I don't actually want to and I don't have a plan." She denies any homicidal emilia ation. She denies any auditory or visual hallucinations. Patient denies any shortness of breath, abdominal pain, nausea, vomiting, headache, lightheadedness, dizziness, change in vision, change in bowel or bladder, weakness. - Related Data Home Medications Medication Instructions Recorded Confirmed Latanoprost [Xalatan 0.005%] 1 drop BOTH EYES HS 03/30/18 12/19/21 busPIRone HCL 15 mg PO BID 03/30/18 12/19/21 Folic Acid 1 mg PO DAILY 07/06/18 12/19/21 Metoprolol Tartrate [Lopressor] 12.5 mg PO DAILY 07/06/18 12/19/21 Multivitamins, Thera [Multivitamin 1 tab PO DAILY 07/06/18 12/19/21 (formulary)] Brexpiprazole [Rexulti] 2 mg PO HS 12/19/21 12/19/21 FLUoxetine HCL [PROzac] 20 mg PO DAILY 12/19/21 12/19/21 LORazepam [Ativan] 0.5 mg PO TID 12/19/21 12/19/21 Loratadine 10 mg PO DAILY PRN 12/19/21 12/19/21 Primidone [Mysoline] 25 mg PO HS 12/19/21 12/19/21 metFORMIN HCL 500 mg PO DAILY 12/19/21 12/19/21 Previous Rx's Medication Instructions Recorded Levothyroxine Sodium [Synthroid] 50 mcg PO DAILY #30 tab 11/14/16 Atorvastatin [Lipitor] 80 mg PO DAILY #30 tab 04/04/18 Pantoprazole [Protonix] 40 mg PO DAILY #30 tablet. 04/04/18 Allergies Allergy/AdvReac Type Severity Reaction Status Date / Time Sulfa (Sulfonamide Allergy Unknown Rash/Hives Verified 12/19/21 14:33 Antibiotics) Review of Systems ROS Statement: Those systems with pertinent positive or pertinent negative responses have been documented in the HPI. ROS Other: All systems not noted in ROS Statement are negative. Past Medical History Past Medical History: Eye Disorder, GERD/Reflux, Hyperlipidemia, Hypertension, Memory Impairment, Myocardial Infarction ([place]), Neurologic Disorder, Thyroid Disorder Additional Past Medical History / Comment(s): Bilateral glaucoma, possible [place] 09/12/13, celiac disease, hx. UTIs, UTI with sepsis, lower GI bleed, anemia. Last Myocardial Infarction Date:: Possible [place] 2012 History of Any Multi-Drug Resistant Organisms: None Reported Past Surgical History: Section, Tubal Ligation Additional Past Surgical History / Comment(s): Bilateral cataract removal and lens implant, colonoscopy Past Anesthesia/Blood Transfusion Reactions: No Reported Reaction Past Psychological History: Panic Disorder, PTSD, Schizoaffective Disorder, Schizophrenia Smoking Status: Never smoker Past Alcohol Use History: None Reported Past Drug Use History: None Reported - Past Family History Father Family Medical History: CVA/TIA, Diabetes Mellitus Additional Family Medical History / Comment(s): Father is alive and his 70s Mother Family Medical History: No Reported History Brother(s) Additional Family Medical History / Comment(s): She has 2 brothers. One at age 43 from lockjaw and 1 is alive with no major medical problems. Patient has no sisters. General Exam Limitations: no limitations General appearance: alert, in no apparent distress, other (Patient does have neurologic disorder and does answer all questions appropriately. She is awake and alert and is aware of her surroundings.) Head exam: Present: atraumatic, normocephalic, normal inspection, other (Patient with wet hair after taking shower here due to having bedbugs at home) Eye exam: Present: normal appearance, PERRL, EOMI. Absent: scleral icterus, conjunctival injection, periorbital swelling ENT exam: Present: normal exam, mucous membranes moist Neck exam: Present: normal inspection. Absent: tenderness, meningismus, lymphadenopathy Respiratory exam: Present: normal lung sounds bilaterally. Absent: respiratory distress, wheezes, rales, rhonchi, stridor Cardiovascular Exam: Present: regular rate, normal rhythm, normal heart sounds. Absent: systolic murmur, diastolic murmur, rubs, gallop, clicks GI/Abdominal exam: Present: soft, distended (Abdomen is mildly distended and soft without tenderness. Patient states this is how her abdomen normally looks and feels, she states this is not out of the usual and states it is "usually distended and big"), normal bowel sounds. Absent: tenderness, guarding, rebound, rigid Extremities exam: Present: normal inspection, full ROM, normal capillary refill. Absent: tenderness, pedal edema, joint swelling, calf tenderness Back exam: Present: normal inspection, full ROM. Absent: CVA tenderness (R), CVA tenderness (L), paraspinal tenderness, vertebral tenderness Neurological exam: Present: alert, oriented X3, CN II-XII intact Psychiatric exam: Present: normal affect, normal mood Skin exam: Present: warm, dry, intact, normal color. Absent: rash Course Vital Signs 12/19/21 12/19/21 13:43 16:25 Temperature 97.8 F Pulse Rate 73 72 Respiratory 16 16 Rate Blood Pressure 110/76 O2 Sat by Pulse 97 99 Oximetry Medical Decision Making - Medical Decision Making This 61-year-old female presents emergency Department with "I'm just overwhelmed" x2-3 day. Patient told me that she felt overwhelmed, however she did not have any thoughts of wanting to hurt herself or anybody else this time. Patient states she has thought about hurting herself in the past and did try to cut her arm a few years ago, however she does not have any plan. I did medically clear patient and EPS nurse Bhumika did assess patient. Her and patient came to an agreement that patient would be sent home and [facility] would come to patient's house later today to evaluate. She also stated that stepdown hospice team lead be assessing patient today or tomorrow. Patient will follow up with her psychiatrist in next 1-2 days. I did inform patient return to the emergency department should any thoughts of wanting to hurt herself or anybody else. Patient verbally agree to plan and denied any suicidal or homicidal ideation prior to discharge. Patient verbally agreed to plan. Patient sent home in stable condition. Case discussed with my attending, . - Lab Data Lab Results 12/19/21 12/19/21 Range/Units 14:07 15:32 POC Glucose (mg/dL) 118 H (75-99) mg/dL POC Glu Keeper Head ID Brenda Calderon Urine Opiates Screen Not Detected (NotDetected) Ur Oxycodone Screen Not Detected (NotDetected) Urine Methadone Screen Not Detected (NotDetected) Ur Propoxyphene Screen Not Detected (NotDetected) Ur Barbiturates Screen Not Detected (NotDetected) U Tricyclic Antidepress Not Detected (NotDetected) Ur Phencyclidine Scrn Not Detected (NotDetected) Ur Amphetamines Screen Not Detected (NotDetected) U Methamphetamines Scrn Not Detected (NotDetected) U Benzodiazepines Scrn Detected H (NotDetected) Urine Cocaine Screen Not Detected (NotDetected) U Marijuana (THC) Screen Detected H (NotDetected) Disposition Clinical Impression: Mood changes Disposition: HOME SELF-CARE Condition: Stable Instructions (If sedation given, give patient instructions): Depression (ED) Additional Instructions: Follow-up with your primary care provider and psychiatrist tomorrow. Return to the emergency department with any new, worsening, or concerning symptoms. Return to the emergency department with any thoughts of suicidal ideation, homicidal ideation or any auditory or visual hallucinations. [facility] will at your house today to assess. Step down team will be contacting you. Is patient prescribed a controlled substance at d/c from ED?: No Referrals: Cindy Gardner MD [Primary Care Provider] - 1-2 days Time of Disposition: 16:23
[2021-12-19 15:58] LABS: Amphetamine Screen,Urine Not Detected (NotDetected); Barbiturate Screen,Urine Not Detected (NotDetected); Benzodiazepines Screen,Urine Detected (NotDetected); Cocaine Screen,Urine Not Detected (NotDetected); Methadone Screen, Urine Not Detected (NotDetected); Opiate Screen,Urine Not Detected (NotDetected); Oxycodone Screen, Urine Not Detected (NotDetected); Phencyclidine Screen,Urine Not Detected (NotDetected); Tricyclic Antidepressant,Urine Not Detected (NotDetected); Urn Cannabinoid Scrn Detected (NotDetected)
[2021-12-19 16:27] VITALS: PULSE 72
== END 2021-12-19 16:27 | disposition home or self-care (01) ==
LOC: EC 13:25
DX: F39 Unspecified mood [affective] disorder (principal); I10 Essential (primary) hypertension; Z88.2 Allergy status to sulfonamides
CPT/HCPCS: 36415; 80306; 82075; 99284

== ENCOUNTER 2022-03-18 12:38 | Emergency (ER) | payer OTHER ==
[2022-03-18 12:57] VITALS: BP 127/62; PULSE 85; RESP 16; TEMP 98.5
--- NOTE | 2022-03-18 15:28 | ED ---
ENT HPI - General Chief complaint: ENT Stated complaint: Lost Voice Time Seen by Provider: 03/18/22 15:07 Source: patient Mode of arrival: ambulatory Limitations: no limitations - History of Present Illness Initial comments: Patient is a 7-year-old female presenting with chief complaint of "I lost my voice". Patient states symptoms started yesterday. Patient admits to a mild dry cough, otherwise no other symptoms. Patient states that her partner has been out of town for several days and they were talking a lot to catch up with each other, the next day she noticed that her voice was strained. She denies any sore throat, dysphasia, shortness of breath, wheezing or stridor. She has been using lozenges which have been minimally helpful. She denies any chest pain, fever, chills, nausea, vomiting, congestion, ear pain, sinus pressure, vision or hearing changes, neck pain. - Related Data Home Medications Medication Instructions Recorded Confirmed Latanoprost [Xalatan 0.005%] 1 drop BOTH EYES HS 03/30/18 12/19/21 busPIRone HCL 15 mg PO BID 03/30/18 12/19/21 Folic Acid 1 mg PO DAILY 07/06/18 12/19/21 Metoprolol Tartrate [Lopressor] 12.5 mg PO DAILY 07/06/18 12/19/21 Multivitamins, Thera [Multivitamin 1 tab PO DAILY 07/06/18 12/19/21 (formulary)] Brexpiprazole [Rexulti] 2 mg PO HS 12/19/21 12/19/21 FLUoxetine HCL [PROzac] 20 mg PO DAILY 12/19/21 12/19/21 LORazepam [Ativan] 0.5 mg PO TID 12/19/21 12/19/21 Loratadine 10 mg PO DAILY PRN 12/19/21 12/19/21 Primidone [Mysoline] 25 mg PO HS 12/19/21 12/19/21 metFORMIN HCL 500 mg PO DAILY 12/19/21 12/19/21 Previous Rx's Medication Instructions Recorded Levothyroxine Sodium [Synthroid] 50 mcg PO DAILY #30 tab 11/14/16 Atorvastatin [Lipitor] 80 mg PO DAILY #30 tab 04/04/18 Pantoprazole [Protonix] 40 mg PO DAILY #30 tablet. 04/04/18 Allergies Allergy/AdvReac Type Severity Reaction Status Date / Time Sulfa (Sulfonamide Allergy Unknown Rash/Hives Verified 03/18/22 12:54 Antibiotics) Review of Systems ROS Statement: Those systems with pertinent positive or pertinent negative responses have been documented in the HPI. ROS Other: All systems not noted in ROS Statement are negative. Past Medical History Past Medical History: Eye Disorder, GERD/Reflux, Hyperlipidemia, Hypertension, Memory Impairment, Myocardial Infarction ([place]), Neurologic Disorder, Thyroid Disorder Additional Past Medical History / Comment(s): Bilateral glaucoma, possible [place] 09/12/13, celiac disease, hx. UTIs, UTI with sepsis, lower GI bleed, anemia. Last Myocardial Infarction Date:: Possible [place] 2012 History of Any Multi-Drug Resistant Organisms: None Reported Past Surgical History: Section, Tubal Ligation Additional Past Surgical History / Comment(s): Bilateral cataract removal and lens implant, colonoscopy Past Anesthesia/Blood Transfusion Reactions: No Reported Reaction Past Psychological History: Panic Disorder, PTSD, Schizoaffective Disorder, Schizophrenia Smoking Status: Never smoker Past Alcohol Use History: None Reported Past Drug Use History: None Reported - Past Family History Father Family Medical History: CVA/TIA, Diabetes Mellitus Additional Family Medical History / Comment(s): Father is alive and his 70s Mother Family Medical History: No Reported History Brother(s) Additional Family Medical History / Comment(s): She has 2 brothers. One at age 43 from [facility] and 1 is alive with no major medical problems. Patient has no sisters. General Exam Limitations: no limitations General appearance: alert, in no apparent distress Head exam: Present: atraumatic, normocephalic, normal inspection Eye exam: Present: normal appearance, EOMI. Absent: scleral icterus ENT exam: Present: normal exam, normal oropharynx, mucous membranes moist Neck exam: Present: normal inspection, full ROM. Absent: tenderness, lymphadenopathy Respiratory exam: Present: normal lung sounds bilaterally. Absent: respiratory distress, wheezes, rales, rhonchi, stridor Cardiovascular Exam: Present: regular rate, normal rhythm, normal heart sounds. Absent: systolic murmur, diastolic murmur, rubs, gallop, clicks Neurological exam: Present: alert, oriented X3, CN II-XII intact Psychiatric exam: Present: normal affect, normal mood Skin exam: Present: warm, dry, intact, normal color. Absent: rash Course Vital Signs 03/18/22 12:54 Temperature 98.5 F Pulse Rate 85 Respiratory 16 Rate Blood Pressure 127/62 O2 Sat by Pulse 97 Oximetry Medical Decision Making - Medical Decision Making Patient is a 61-year-old female presenting with chief complaint of "I lost my voice". Patient states symptoms started yesterday, the day prior she was talking much more than usual as her partner was out of town for several days prior and they were trying to catch up. She denies any sore throat, dysphagia, shortness of breath, wheezing, fever, chills, URI-like symptoms. On examination there is a normal posterior pharynx, no swelling or midline shift. No lymphadenopathy or tenderness on palpation of the neck. Heart and lungs are clear to auscultation. Likely viral laryngitis, patient appears stable for discharge with outpatient follow-up at this time. I educated the patient on supportive treatment, including lozenges, tea with honey, and vocal rest. Follow-up with PCP this week. Report back to ER if any new or worsening symptoms. Educated the patient on alarms symptoms return parameters. Answered all questions. Patient conveyed verbal understanding and agreed to the plan. My attending is Dr. Martinez. Disposition Clinical Impression: Laryngitis Disposition: HOME SELF-CARE Condition: Good Additional Instructions: Follow-up with your PCP this week. Report back to ER with any new or worsening symptoms. What is laryngitis? Laryngitis is inflammation of the vocal cords and the area around them (the larynx, or voice box). It causes hoarseness. Sometimes it's hard to speak at all. Laryngitis may be acute or chronic. Acute laryngitis occurs suddenly and lasts no more than a few days. Laryngitis is chronic if the hoarseness in your throat lasts for a long time. How does it occur? Laryngitis can be a symptom of a cold, flu, bronchitis, sinusitis, and other respiratory infections or allergies. Acute laryngitis is usually caused by a virus, but it can also result from a bacterial infection. Chronic laryngitis can be caused by: heavy smoking shouting, singing, or excessive use of the voice, such as in teaching or public speaking coughing forcefully exposure to dust or chemicals. Medical conditions that can cause symptoms similar to laryngitis or cause a change in the voice over the course of a few weeks are: thyroid disease noncancerous growths on the vocal cords cancer of the vocal cords. What are the symptoms? Symptoms of both acute and chronic laryngitis may include: low, raspy voice and hoarseness a cough that is dry (meaning that you usually aren't coughing up mucus) a throat that feels dry a sore throat a voice that weakens as the day progresses. Sometimes you may lose your voice completely. How is it diagnosed? Your health care provider will ask about your symptoms and how long you have had them. Your provider will listen to your voice and examine you. Your provider will also examine your thyroid (the gland located near your voice box) and the lymph nodes (often called glands) in your neck. Lab tests and x-rays may be done, but often they do not find a specific cause. If necessary, your health care provider will look at your voice box and surrounding area with a flexible laryngoscope (a special light to see past your tongue). How is it treated? The main treatment is resting your voice as much as you can. Your health care provider may recommend taking a nonprescription pain reliever, such as ibuprofen. He or she may also prescribe medicine. For example, your provider may prescribe a steroid spray for your throat. Or, if your laryngitis is caused by sinusitis or bronchitis, your treatment may include taking medicine for these conditions. How long will the effects last? When acute laryngitis is caused by a virus, it usually goes away in a few days without medicine. Laryngitis caused by bacteria should also be better in a few days with treatment. If you have chronic laryngitis, your condition should improve with a week of resting your voice. If your hoarseness lasts more than 3 weeks, see your health care provider. You may need more tests to check for other diseases. How can I take care of myself? Follow the treatment prescribed by your health care provider. Do not smoke. Avoid breathing irritating smoke, dust, and fumes. Rest your voice as much as possible. Drink extra fluids, such as water, fruit juice, and tea. Take hot, steamy showers and breathe in the moist air, or breathe through a hot, moist towel. Use a vaporizer or humidifier to add moisture to the air. See your provider if your laryngitis lasts more than 3 weeks. What can I do to help prevent laryngitis? Get plenty of rest when you have a viral or bacterial infection, such as a cold or sinusitis. Avoid vocal strain by not yelling, screaming, or talking loudly, especially when you have a cold or other throat or sinus infection. Don't smoke and avoid exposure to smoke. Keep your home well humidified. [employer] 2006.4; Copyright 2006 [employer] and/or one of its subsidiaries. All Rights Reserved. Developed by [employer]. This content is reviewed periodically and is subject to change as new health information becomes available. The information is intended to inform and educate and is not a replacement for medical evaluation, advice, diagnosis or treatment by a healthcare professional. Is patient prescribed a controlled substance at d/c from ED?: No Referrals: Cindy Gardner MD [Primary Care Provider] - 1-2 days Time of Disposition: 15:28
== END 2022-03-18 15:39 | disposition home or self-care (01) ==
LOC: EC 12:38
DX: J04.0 Acute laryngitis (principal); I10 Essential (primary) hypertension; I25.2 Old myocardial infarction; K21.9 Gastro-esophageal reflux disease without esophagitis; E78.5 Hyperlipidemia, unspecified; F25.9 Schizoaffective disorder, unspecified; Z79.84 Long term (current) use of oral hypoglycemic drugs; Z79.899 Other long term (current) drug therapy
CPT/HCPCS: 99283